=== PATIENT | female | born 1985 | race Caucasian/White ===

== ENCOUNTER 2016-12-18 07:25 | Emergency (ER) | payer MEDICAID ==
--- NOTE | 2016-12-18 08:38 | Emergency Room Report ---
Trauma Alert Presentation Time Seen by MD Velez Initial Onset/Presentation This 31 year old, Female presented to the ED for triage on at by . Accident /injury occurred on at approximately (or date/time was unknown: ). Visit reason: TRAUMA ALERT: TRAUMA SCORE: Intubated? Resp Effort-Rate: GCS: Stystolic B/P: Eye Response: Capillary Refill: Motor Response: GCS: Verbal Response: PEDS GCS: Airway Status: Eye Response: Advanced Airway? Motor Response: Type: Verbal Response: Size: Depth @ teeth-cm: B/P: SaO2: O2 type: Method: LPM: FIO2%: Pulse: Resp: Resps: Lung Snds RT: Temp: Chest Exp: Lung Snds LT: Trachea: Crepitus? C-collar? Long spine board? Cervical immob. dev? GPS NAVIGATION INSTALLER? GPS NAVIGATION INSTALLER? GPS NAVIGATION INSTALLER? Heart Rhythm: Pulses -R Radial: L Radial: Sounds: R Pedal: L Pedal: Cap Refill: R Femoral: R Femoral: Color: R P.Tib: L P.Tib: R Carotid: L Carotid: PUPILS L Reactive? Neuro Status: C/O Pain? mm: Pain Intensity: R Reactive? Scale: mm: See Trauma Alert assessment for responding team members/times related to the Trauma Alert. Source RN notes reviewed, EMS Exam Limitations clinical condition Comment pt involved in [facility] in [place] and [employer] on scene-en route to with head trauma and pt arrested and diverted to our ed- Cardiac Chest Pain Chest pain indicative of cardiac No Timing/Duration this morning Severity severe History Medical History Surgical Hx Previous Surgery? not known Review of Systems All Other Systems Reviewed and Negative Comment not able to be obtained Physical Exam Vital Signs See Trauma Alert Assessment for nursing documentation of initial triage exam General Appearance severe distress Ear, Nose, Throat intubated Neck in c collar Respiratory Status Yes: respiratory distress (apneic). Cardiovascular regular rate/rhythm Peripheral Pulses Pulses normal Yes Peripheral Pulses 2+ femoral (R), 2+ femoral (L) Gastrointestinal soft Extremities pelvis stable, no gross demormity Neurologic no focal changes Glascow Coma Scale Glascow Coma Scale Response Value EYE response: 1 No Response 1 MOTOR response: 1 NO RESPONSE 1 VERBAL response: 1 No Response 1 Total 3 Mental status altered mental status Skin open head wd Medical Decision Making LABS/Meds/Orders Pt receiving controlled substance in ED? No Results/Orders Current Medication Orders Sig/Christy Start time Last Medication Dose Route Stop Time Status Admin Epinephrine HCl 1 MG PRN PRN 12/18 0830 AC 12/18 IV 12/18 1009 0731 Sodium Chloride 10 ML PRN PRN 12/18 0830 AC IV 12/19 0830 Sodium Chloride 1,000 ML .Q1H1M 12/18 0800 AC 12/18 IV 12/18 1000 0730 Orders Procedure Date/time Status CODE BLUE ORDERS/PROC. APPROVE 12/18 829 Active Departure Departure Time of Disposition 0804 Disposition DC/XFER from ER to [facility] Clinical Impression Primary Impression: Traumatic cardiac arrest Condition STABLE ED Critical Care Critical Care Yes Time spent 30-74 min Vital system(s) involved: trauma alert I was present at bedside for Coordinating pt's care, Discussing pt condition, For re-examinations Comments sent [place] [facility] alert at 0837
--- OUTSIDE RECORDS SUMMARY | 2016-12-19 22:05 | External Medical Summary Rpt ---
Author Author , Organization [employer] Address Unknown Phone Unavailable Care Team Providers Care Photography Colorist Name Role Phone [facility] [place] [facility], Unavailable Unavailable [facility] ABRAMS COURTNEY, ABRAMS Unavailable Unavailable GAMALIEL WEAVER, Unavailable Unavailable GAMALIEL JAIN COX VY Unavailable Unavailable MARQUES AGA, Unavailable Unavailable MARQUES AGA ERIK DECALVO Unavailable Unavailable MAR, ERIK DECALVO MAR ERIK DECALVO, Unavailable Unavailable KHUSHBOO V, ERIK DECALVO, KHUSHBOO V JESÚS ELIAN, JESÚS ELIAN Unavailable Unavailable JESÚS ELIAN, JESÚS ELIAN Unavailable Unavailable ARMEN ESPINOSA, JESÚS, Unavailable Unavailable SUSAN CARD, Unavailable Unavailable SUSAN HERNANDEZ ALISA C, Unavailable Unavailable FLORES LIM GANSTER Unavailable Unavailable ANNA MARIE DANIELS, Unavailable Unavailable ANNA MARIE SANCHEZ GIANFERRARI, LORNE, Unavailable Unavailable GIANFERRARI, LORNE VERNON ANT JUNIOR Unavailable Unavailable ANT LITO VELASQUEZ, Unavailable Unavailable LITO VELASQUEZ DEN, GORDeion DEN Unavailable Unavailable [facility], Unavailable Unavailable [facility] GIANA CARRILLO Unavailable Unavailable GIANA MEJÍA Unavailable Unavailable QUINCY DE SOUZA Unavailable Unavailable KELBY PARK, Unavailable Unavailable KELBY MATHEWLAMERT HEN, Unavailable Unavailable HARLAMERT HEN MARK VARGAS, Unavailable Unavailable MARK VARGAS TOMY, SP TOMY Unavailable Unavailable ABDULLAHI ECHAVARRIA Unavailable Unavailable NAKUL FRANKLIN, Unavailable Unavailable NAKUL FERNANDO [facility] Unavailable Unavailable PHARMACY, [facility] HANSEN MIR, HANSEN MIR Unavailable Unavailable [id number], Unavailable Unavailable [id number], [facility] Unavailable Unavailable [facility], [facility] Unavailable Unavailable [facility], [facility] Unavailable Unavailable [facility]INGS, [facility] Unavailable Unavailable [facility], [facility] Unavailable Unavailable [facility], [facility], Unavailable Unavailable [facility] & Unavailable Unavailable [facility] Unavailable Unavailable [facility] Unavailable Unavailable [facility], [facility] DIPAK LOCKETT Y, Unavailable Unavailable DIPAK LOCKETT Y RAI, RON Y, RAI, RON Unavailable Unavailable [facility], [facility] Unavailable Unavailable CENTER, [facility] JERI GREGG, Unavailable Unavailable JERI GREGG [facility] Unavailable Unavailable SERVICES, [facility] Unavailable Unavailable DEPARTMENT, [email or web address], Unavailable Unavailable [email or web address] Unavailable Unavailable PHARMACY, [facility] Unavailable Unavailable [place], [facility], [facility], [facility] Unavailable Unavailable [facility], [facility]available Unavailable [facility], [facility] Unavailable Unavailable ASSOC[facility], [facility] Unavailable Unavailable MEDICAL, [facility] MEDICAL [facility] Unavailable Unavailable [facility]ENTER, [facility] SHANICE PRASAD Unavailable Unavailable THANIA PALMER, Unavailable Unavailable THANIA PALMER MORRIS Unavailable Unavailable MAR MOHAN, MAR Unavailable Unavailable JAM O'JULIETH SARAI, O'JULIETH Unavailable Unavailable SARAI O'JULIETHREFUGIO MOON, O'JULIETH Unavailable Unavailable SARAI [facility] Unavailable Unavailable ENDOCRINOLOGY, I, [facility], I OLZESKI MAURICIO, OLZESKI Unavailable Unavailable SUKHDEV THOMAS, Unavailable Unavailable SUKHDEV PEREZ, Unavailable Unavailable CHACORTA BEJARANO PORNOY MURTAZA, PORNOY Unavailable Unavailable MURTAZA BRENNON NANETTE, BRENNON Unavailable Unavailable NANETTE BRENNON NANETTE, BRENNON Unavailable Unavailable NANETTE [facility] Unavailable [facility], [facility], Unavailable Unavailable [facility], Unavailable Unavailable INC., [facility] FINA JANENE, FINA Unavailable Unavailable JANENE [id number], Unavailable Unavailable [id number] MARY PANG, Unavailable Unavailable MARY PANG [facility] BLANKENSHIP, SHOWER Unavailable Unavailable BLANKNESHIP SHOWER BLANKENSHIP, SHOWER Unavailable Unavailable BLANKENSHIP SHOWER, DIOGO L, Unavailable Unavailable SHOWER, DIOGO L [facility], [facility] YAP KER, YAP KER Unavailable Unavailable SALDANA CHR, Unavailable Unavailable SALDANA CHR MERISSA PONCE, Unavailable Unavailable MERISSA PONCE TUCKER Unavailable Unavailable [facility], Unavailable Unavailable [facility] LATASHA FRANCISCO, LATASHA Unavailable Unavailable NOALN FRANCISCO, LATASHA Unavailable Unavailable NOLAN ELAINE, LATASHA Unavailable Unavailable STANLEY COVARRUBIAS, Unavailable Unavailable STANLEY PAGAN, IAN ANAYA Unavailable Unavailable Purpose Continuity of Care Document - 03-05-2008 through 2016 Problems Code Diagnosis DOS Provider Status E039 HYPOTHYROID 10-22-2016 [facility] U[facility]PEC[facility] CTR I10 ESSENTIAL 10-22-2016 [facility] HYPERTENSIO [facility]ALTH CTR N Z720 TOBACCO USE 10-22-2016 [facility] A5400 GONOCOCCAL 10-14-2016 [facility] LOWER HEALTH GEN[facility] RY TRACT HEALTH UNS N760 ACUTE 10-08-2016 [facility] VAGINITIS [facility] [id number] INSECT BITE 03-18-2016 [facility] RIGHT [facility] FOREARM [facility]ALTH CTR INITIAL ENCOUNTER [id number] INSECT BITE 03-18-2016 [facility] NONVENOMOUS HEALTH CTR LT FOREARM INITIAL ENC [id number] INSECT BITE 03-18-2016 [facility] NONVENOMOUS [facility] CTR RT LOWER LEG INITIAL ENC [id number] INSECT BITE 03-18-2016 [facility] NONVENOMOUS [facility] CTR LT LOWER LEG INITIAL ENC J069 ACUTE UPPER 03-09-2016 [facility] RESPIRATORY [facility] CTR INFECTION UNSPECIFIED E079 DISORDER OF 03-05-2016 [facility] THYROID [facility] UNSPECIFIED HEALTH CTR Z392 ENCOUNTER 08-25-2015 [facility] FOR ROUTINE [facility]ILY HEALTH CTR FOLLOW-UP R5383 OTHER 07-23-2015 [facility] FATIGUE [facility] Z391 ENCNTR FOR 07-23-2015 [facility] CARE & FAMILY EXAMINATION HEALTH CTR LACTATING MOTHER O3421 MATERNAL 07-09-2015 [facility] CARE SCAR [facility]ILY PREVIOUS HEALTH CTR DELIVERY O9902 ANEMIA 07-09-2015 [facility] COMPLICATIN [facility]ILY G HEALTH CTR CHILDBIRTH P49899 ENDOCRINE 07-09-2015 [facility] NUTRITION & FAMILY METAB DZ HEALTH CTR COMP CHILDBIRTH Z302 ENCOUNTER 07-09-2015 [facility] FOR FAMILY STERILIZATI HEALTH CTR ON Z370 SINGLE LIVE 07-09-2015 [facility] Z3A37 37 WEEKS 07-09-2015 [facility] GESTATION [facility] OF HEALTH CTR N838 OTH 07-07-2015 [facility] NONINFLAMM [place] [facility] D/O OVARY FALLOP TUBE & BROAD LIG O0943 SUPERVISION 07-07-2015 [facility] PREG REGIONAL W/GRAND MEDICAL MULTIPARITY THIRD TRI N53400 SUP PREG 07-01-2015 [facility] W/OTH POOR FAMILY REPRODUCTIV HEALTH CTR E/OB HX UNS TRI X60528 SMOKING 07-01-2015 [facility] TOBACCO FAMILY COMP HEALTH CTR THIRD TRIMESTER A22398 ENCOUNTER 07-01-2015 [facility] FOR OTHER REGIONAL PREPROCEDUR MEDICAL AL EXAMINATION Z3009 ENCOUNTER 07-01-2015 [facility] OT GENERAL FAMILY HEALTH CTR 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 Z3A36 36 WEEKS 07-01-2015 [facility] GESTATION [facility]ILY OF HEALTH CTR K22551 SUP PREG 06-26-2015 [facility] W/OTH POOR SERV REPRODUCTIV FOUNDATION E/OB HX THIRD TRI Y71739 UTERINE 06-26-2015 [facility] SIZE-DATE SERV DISCREPANCY FOUNDATION THIRD TRIMESTER Z36 ENCOUNTER 06-26-2015 [facility] FOR REGIONAL MEDICAL SCREENING OF MOTHER Z3A35 35 WEEKS 06-26-2015 [facility] SERV OF FOUNDATION 2449 UNSPECIFIED 05-08-2015 [facility]ILY HYPOTHYROID HEALTH CTR ISM 44275 MATERNAL 05-08-2015 [facility] ANEMIA, FAMILY ANTEPARTUM HEALTH CTR V237 INSUFFICIEN 05-08-2015 [facility] T FAMILY CARE HEALTH CTR V2389 SUPERVISION 05-08-2015 [facility] OF OTHER FAMILY HIGH-RISK HEALTH CTR V2881 ENCOUNTER 04-24-2015 [facility] FOR SERV ANATOMIC FOUNDATION SURVEY V221 SUPERVISION 04-10-2015 [facility] OF OTHER PRIMARY NORMAL CARE CENTER 90652 PREVIOUS 03-27-2015 [facility] C-SECT SERV DELIVERY FOUNDATION ANTPRTM COND/COMP V2341 SUPERVISION 03-27-2015 [facility] W/HISTORY [facility]OUNDATION PRE-TERM LABOR 70771 CERVICAL 03-06-2015 [facility] INCOMPETENC SERV E ANTPRTM FOUNDATION COND/COMPLI CATION 02501 UNS 02-06-2015 [facility] ABNORM MGMT PRIMARY MOTH CARE CENTER ANTPRTM COND/COMP V2889 OTHER 02-06-2015 [facility] SPECIFIED PRIMARY CARE CENTER SCREENING 02842 UNSPECIFIED 01-29-2015 [facility] ANTEPARTUM PRIMARY HEMORRHAGE CARE CENTER ANTEPARTUM 88308 TOB USE D/O 01-29-2015 [facility] COMP PG PRIMARY /PP CARE CENTER ANTEPARTM COND/COMP V7381 SPECIAL 01-16-2015 LABORATORY SCREENING [facility] OF EXAMINATION [facility] H HUMAN PAPILVIRUS V7388 SPECIAL SCR 01-16-2015 [facility] PRIMARY EXAMINATION CARE CENTER OT SPEC CHLAMYDIAL DZ V762 SCREENING 01-16-2015 [facility] FOR PRIMARY MALIGNANT CARE CENTER NEOPLASM OF THE CERVIX V7240 12-13-2014 [facility] EXAMINATION PRIMARY /TEST CARE CENTER UNCONFIRMED 7804 DIZZINESS 08-02-2014 [facility] EMERGENCY GIDDINESS PHYS 7881 DYSURIA 03-16-2014 [facility] N EMERGENCY PHYS 1121 CANDIDIASIS 06-21-2012 LAT[facility] DON OF VULVA AND VAGINA 4019 UNSPECIFIED 06-18-2012 [facility] ESSENTIAL REGIONAL HYPERTENSIO MEDICAL N 82924 UNSPECIFIED 06-18-2012 [facility] PYELONEPHRI SERVICES TIS 5990 URINARY 06-18-2012 [facility] TRACT REGIONAL INFECTION MEDICAL SITE NOT SPECIFIED 15595 UNSPECIFIED 06-18-2012 [facility] VAGINITIS REGIONAL AND MEDICAL VULVOVAGINI TIS 02306 NAUSEA 06-17-2012 [place] [facility] 02239 ABDOMINAL 06-17-2012 [facility] PAIN, REGIONAL UNSPECIFIED MEDICAL SITE 20158 ABDOMINAL 06-17-2012 [place] PA[facility] OTHER RADIOLOGY SPECIFIED ASSOCIAT SITE 4553 EXTERNAL 06-03-2012 [facility] HEMORRHOIDS REGIONAL WITHOUT MEDICAL MENTION COMP V242 ROUTINE 05-04-2012 JESÚS ELIAN FOLLOW-UP V2501 GENERAL 05-04-2012 JESÚSChel PLUMMER COUNSELING PRESCRIPTIO N ORAL CONTRACEPTS 6146 PELVIC 03-28-2012 BRENNON NANETTE PERITONEAL ADHESIONS, FEMALE 16736 OTH CURRENT 03-28-2012 [facility] NANETTE MATERNAL CCE W/DELIVERY 06152 PREV C/S 03-28-2012 [facility] NANETTE DELIV DELIV W/WO MENTION ANTPRTM COND V270 OUTCOME OF 03-28-2012 [facility] NANETTE DELIVERY SINGLE LIVEBORN 13576 MTRN 03-27-2012 [facility] TH[facility]AL DYSF DELIV MEDICAL W/WO ANTPRTM COND 99668 TOBACCO USE 03-27-2012 [facility] D/O COMP [facility] PG MEDICAL CHILDBIRTH/ PP DELIVERED 95619 UNSPECIFIED 03-20-2012 [facility] ABNORMALITY OF LABOR ANTEPARTUM V286 SCREENING 03-09-2012 [facility] [place] [place] [address] DECREASED 03-03-2012 BREN[facility] NANETTE MOVEMENTS UNSPEC EPISODE CARE 05976 UTERINE 03-02-2012 [facility] FRANCISCO SIZE DATE DISCREPANCY ANTPRTM COND/COMPL V232 03-02-2012 LATAS[facility] FRANCISCO WITH HISTORY OF 3671 MYOPIA 12-31-2011 [facility] JIM V284 12-23-2011 JES[facility]SChel PLUMMER SCR GROWTH RETARDATION USING US V2882 ENCOUNTER 12-23-2011 JESÚS PLUMMER SCREENING FOR RISK OF PRE-TERM LABOR V2349 SUPERVISION 12-09-2011 BRENNON NANETTE W/OTH POOR OBSTETRIC HX V2381 SUPERVISION 11-04-2011 O'JULIETHREFUGIO MOON HIGH-RISK PG ELDER PRIMIGRAVID A V239 UNSPECIFIED 09-16-2011 [facility] HIGH-RISK 6823 CELLULITIS 08-16-2011 [facility] OF UPPER MEDICAL ARM AND FOREARM 2411 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 [facility] MULTINODULA R GOITER ENDOCRINOLO GY, I 2448 OTHER 03-30-2011 [facility] SPECIFIED ACQUIRED ENDOCRINOLO HYPOTHYROID GY, I ISM 2452 CHRONIC 03-30-2011 [facility] LYMPHOCYTIC ENDOCRINOL[place] I [address] OTHER 03-30-2011 [facility] MALAISE AND FATIGUE ENDOCRINOLO GY, I 6253 DYSMENORRHE 03-01-2011 [facility] MEDICAL 6262 EXCESSIVE 03-01-2011 [facility] MEDICAL MENSTRUATIO N 77769 THREATENED 02-15-2011 [facility] ANTEPARTUM MEDICAL 632 MISSED 02-08-2011 [facility] MEDICAL 19371 OTHER SPEC 01-27-2011 [facility] HEMORRHAGE PRIMARY EARLY CARE CENTER ANTEPARTUM 73748 UNSPEC 01-26-2011 [facility] EARLY SERVICES ANTEPARTUM V1582 PERS HX 01-26-2011 [facility] TOBACCO USE REGIONAL [facility]ICAL [facility] HEALTH 6268 OTH D/O 12-31-2010 [facility] MENSTRUATIO PRIMARY N&OTH ABN CARE CENTER BLEED FE GNT TRACT V280 SCREENING 12-31-2010 [facility] CHROMOSOMAL PRIMARY ANOMALIES CARE [place]ENTER AMNIOCENTES [place] V7242 12-31-2010 [facility] EXAMINATION PRIMARY OR TEST CARE CENTER POSITIVE RESULT 77693 URINARY 04-21-2010 [facility] FREQUENCY PRIMARY CARE CENTER V2542 SURVEILLANC 04-21-2010 [facility] E PREV PRSC PRIMARY INTRAUTERN CARE CENTER CNTRACPT DEVC 7831 ABNORMAL 01-07-2010 [facility] WEIGHT GAIN PRIMARY CARE CENTERINC 36804 PAIN IN 10-22-2009 [facility] JOINT, PRIMARY SHOULDER CARE REGION CENTERINC 57170 OTHER 07-23-2009 [facility] JOINT OTHER SPEC SITE 7822 LOCALIZED 07-23-2009 [facility] SUPERFICIAL PRIMARY SWELLING CARE MASS OR CENTERINC LUMP V7232 ENCOUNTER 04-23-2009 [facility] PAP CERV PRIMARY SMER CARE CONFIRM NL CENTERINC [place]N 82977 OBESITY, 03-06-2009 [facility] UNSPECIFIED HEALTH CENTRAL BANK ACCT V653 DIETARY 03-06-2009 [facility] SURVEILLANC HEALTH E AND CENTRAL COUNSELING BANK ACCT 2469 UNSPECIFIED 02-26-2009 [facility] DISORDER PRIMARY OF THYROID CARE CENTERINC 2461 DYSHORMONOG 02-25-2009 [facility] EN GOITER ENDOCRINOLO GY, INC V251 ENCOUNTER 07-17-2008 [facility] INSERT/[facility] SERV DENAE IU FOUNDATIO CONTRACEPTI VE DEVICE 48720 BREECH 06-12-2008 [facility] PRESENTAT[facility] SERV N W/O FOUNDATIO MENTION VERSION DELIV 62319 CHROMOSM 06-12-2008 [facility] ABNORM SERV FETUS FOUNDATIO AFFECT MGMT MOTH W/DELIV 64372 PREMATURE 06-12-2008 [facility] RUPTURE SERV MEMBRANES FOUNDATIO DELIVERED 64975 C/S DELIV 06-12-2008 [facility] W/O MENTION SERV INDICAT FOUNDATIO UNS EPIS CARE 89495 DELAY DELIV 06-11-2008 [facility] AFTER SERV SPONT/UNSPE FOUNDATIO C RUP MEMB ANTPRTM 00776 PREMATURE 06-10-2008 [facility] F[facility]ATIO ANTEPARTUM 68563 SPOTTING 06-09-2008 [facility] COMP [facility] F[facility]AT[facility] ANTEPARTUM COND/COMP 51879 ESOPHAGEAL 05-22-2008 [facility] 63643 PREMATURE 05-22-2008 [facility] [place] WITH DELIVERY 88010 OTH CURRENT 05-22-2008 [facility] CLASSIFIABL E ELSW ANTPRTM 36785 DELAY DELIV 05-22-2008 [facility] [place] [place] SPONT/UNSPE C RUP MEMB DELIV 24193 OLIGOHYDRAM 05-20-2008 [facility], SERV ANTEPARTUM FOUNDATIO 11029 THREATENED 04-27-2008 [facility] PREMATURE PRIMARY LABOR CARE ANTEPARTUM CENTERINC 77158 OTHER 04-25-2008 [facility] SPECIFED SERV COMPLICATIO FOUNDATIO N ANTEPARTUM 82088 CNTRL NERV 04-25-2008 [facility] SERV MALFORMATIO FOUNDATIO N IN FETUS ANTEPARTUM 7965 ABNORMAL 04-25-2008 [facility] FINDING ON SERV FOUNDATIO SCREENING 6238 OTHER 03-05-2008 [facility] SPECIFIED REGIONAL NONINFLAMMA MEDICAL TORY CENTER DISORDER VAGINA I46.9 CARDIAC ARREST, CAUSE UNSPECIFIED Medications Na ND Rx Da Fi Fi Am Da Di Ph RX Ph St me C No te ll ll ou ys ag ar # ys at rm s nt no ma ic us Or Da si cy ia de te s n re d BE 43 03 03 30 30 00 RE Ac NA 54 -0 -2 .0 00 YN ti ZE 70 3- 4- 00 00 OL ve AL 33 20 20 78 DS IL 71 17 17 97 0 72 PH HC AR L MA 20 CY MG TA BL ET LE 00 09 24 30 30 00 KR Ac VO 52 -2 -1 .0 00 OG ti TH 71 2- 7- 00 06 ER ve YR 34 20 20 58 OX 71 17 17 80 PH IN 0 15 AR E MA 12 CY 5 MC #4 G 20 TA BL ET ME 29 02 03 14 7 00 RE Ac TR 30 -1 -1 .0 00 YN ti ON 00 7- 0- 00 00 OL ve ID 22 20 20 78 DS AZ 70 17 17 90 OL 1 43 PH E AR 50 MA 0 CY MG TA BL ET AM 00 02 03 30 30 00 RE Ac LO 37 -1 -1 .0 00 YN ti DI 85 7- 0- 00 00 OL ve PI 20 20 20 78 DS NE 87 17 17 90 7 42 PH BE AR SY MA LA CY TE 2. 5 MG TA B LE 00 08 23 30 30 00 KR Ac VO 52 -1 -1 .0 00 OG ti TH 71 6- 7- 00 06 ER ve YR 34 20 20 58 OX 51 17 17 76 PH IN 0 20 AR E MA 10 CY 0 MC #4 G 20 TA BL ET FE 00 06 06 0 90 30 MA 63 GA Ac RR 67 -0 -0 .0 SO 61 NS ti OU 70 8- 8- 00 N 64 TE ve S 07 20 20 FA R CAMPOS 00 11 11 WA KE LF 1 LY LL AT Y E DR 32 UG 5 MG TA BL ET IB 53 06 06 0 60 20 MA 63 GA Ac UP 74 -0 -0 .0 SO 61 NS ti RO 60 8- 8- 00 N 63 TE ve FE 46 20 20 FA R N 60 11 11 WA KE 80 5 LY LL [address] UG TA BL ET DO 60 06 06 0 60 30 MA 63 GA Ac CU 25 -0 -0 .0 SO 61 NS ti SA 80 8- 8- 00 N 62 TE ve TE 95 20 20 FA R 50 11 11 WA KE SO 1 LY LL DI Y UM DR UG 10 0 MG CA PS UL E TR 65 06 06 0 30 5 MA 40 GA Ac AM 16 -0 -0 .0 SO 57 NS ti AD 20 8- 8- 00 N 08 TE ve OL 62 20 20 FA R 71 11 11 WA KE HC 1 LY LL L Y 50 DR UG MG TA BL ET LE 00 12 06 5 30 30 MA 62 HO Ac VO 37 -2 -0 .0 SO 75 LM ti TH 81 2- 2- 00 N 33 ES ve YR 81 20 20 FA OX 30 10 11 WA YA IN 1 LY NC E EY 12 DR R 5 UG MC G TA BL ET NI 00 05 05 0 14 7 MA 63 KE Ac TR 37 -2 -2 .0 SO 53 EF ti OF 83 4- 4- 00 N 21 ve UR 42 20 20 FA KI AN 20 11 11 WA MB TO 1 LY ER IN LY DR MO UG NO -M CR 10 0 MG AL 65 05 05 11 30 30 MA 63 KE Ac EN 16 -1 -1 .0 SO 46 EF ti AT 20 2- 2- 00 N 22 ve AL 66 20 20 FA KI [address] 0 LY ER US LY DR ANGELIA UG BL ET ME 50 08 08 0 14 7 MA 62 RE Ac TR 11 -3 -3 .0 SO 26 DM ti ON 10 N 28 ON ve ID 33 20 20 FA D AZ 40 10 10 WA ME OL 2 LY LI E SS 50 DR Capri 0 UG A MG TA BL ET LE 00 04 08 3 30 30 MA 61 HO Ac VO 52 -2 -1 .0 SO 71 LM ti TH 71 0- 6- 00 N 38 ES ve YR 34 20 20 FA OX 70 10 10 WA YA IN 1 LY NC E EY 12 DR Haney 5 UG MC G TA BL ET BU 00 06 06 0 30 30 MA 61 GI Ac AL 59 -1 -1 .0 SO 94 LL ti OP 13 1- 1- 00 N 90 IS ve IO 54 20 20 FA N 16 10 10 WA AN HC 0 LY NE L E SR DR UG 15 0 MG TA BL ET LE 00 04 05 3 30 30 MA 61 HO Ac VO 52 -2 -2 .0 SO 71 LM ti TH 71 0- 5- 00 N 38 ES ve YR 34 20 20 FA OX 70 10 10 WA YA IN 1 LY NC E EY 12 DR Haney 5 UG MC G TA BL ET 00 05 05 0 30 30 MA 61 GI Ac 09 -1 -1 .0 SO 82 LL ti 34 3- 3- 00 N 13 IS ve 35 20 20 FA 61 10 10 WA AN [address] CARLIE SE 31 04 04 5 15 30 MA 61 GI Ac RT 72 -2 -2 .0 SO 72 LL ti RA 20 3- 3- 00 N 63 IS ve LI 21 20 20 FA NE 30 10 10 WA AN 5 LY NE HC E L DR 50 UG MG TA BL ET LE 00 04 04 3 30 30 MA 61 HO Ac VO 52 -2 -2 .0 SO 71 LM ti TH 71 0- 0- 00 N 38 ES ve YR 34 20 20 FA OX 70 10 10 WA YA IN 1 LY NC E EY 12 R 5 UG MC G TA BL ET 60 04 04 0 8. 2 MA 20 AD Ac 95 -0 -0 00 SO 12 AM ti 10 2- 2- 0 N 52 S ve 79 20 20 FA JA 67 10 10 WA ME [address] SEXTON 00 03 03 0 8. 3 MA 20 AD Ac 40 -2 -2 00 SO 12 AM ti 60 9- 9- 0 N 38 S ve 58 20 20 FA JA 20 10 10 WA ME [address] SEXT[place] CE 00 03 03 0 30 10 MA 61 AD Ac PH 14 -2 -2 .0 SO 58 AM ti AL 39 5- 5- 00 N 56 S ve EX 89 20 20 FA JA IN 70 10 10 WA ME 5 LY S [address] MG UG CA PS UL E 00 03 03 0 10 2 MA 20 AD Ac 40 -2 -2 .0 SO 12 AM ti 60 5- 5- 00 N 18 S ve 58 20 20 FA JA 20 10 10 WA ME [address] UG SE 31 03 03 0 15 30 MA 61 GI Ac RT 72 -0 -0 .0 SO 47 LL ti RA 20 3- 3- 00 N 11 IS ve LI 21 20 20 FA NE 30 10 10 WA AN 5 LY NE HC E L DR 50 UG MG TA BL ET LO 00 03 03 0 10 10 MA 40 GI Ac RA 59 -0 -0 .0 SO 23 LL ti ZE 10 3- 3- 00 N 90 IS ve PA 24 20 20 FA M 11 10 10 WA AN 1 0 LY NE MG E DR TA UG BL ET LE 00 08 03 5 30 30 MA 60 HO Ac VO 37 -1 -0 .0 SO 45 LM ti TH 81 8- 3- 00 N 02 ES ve YR 81 20 20 FA OX 30 09 10 WA YA IN 1 LY NC E EY 12 DR R 5 UG MC G TA BL ET LE 00 08 02 04 30 30 MA 60 HO Ac VO 37 -1 -2 .0 SO 45 LM ti TH 81 8- 6- 00 N 02 ES ve YR 81 20 20 FA OX 30 09 10 WA YA IN 1 LY NC E EY 12 PH R 5 AR MC MA G CY TA BL ET LE 00 08 12 03 30 30 MA 60 HO Ac VO 37 -1 -3 .0 SO 45 LM ti TH 81 8- 1- 00 N 02 ES ve YR 81 20 20 FA OX 30 09 09 WA YA IN 1 LY NC E EY 12 PH R 5 AR MC MA G CY TA BL ET LE 00 08 12 02 30 30 MA 60 HO Ac VO 37 -1 -0 .0 SO 45 LM ti TH 81 8- 3- 00 N 02 ES ve YR 81 20 20 FA OX 30 09 09 WA YA IN 1 LY NC E EY 12 PH R 5 AR MC MA G CY TA BL ET LE 00 08 09 01 30 30 MA 60 HO Ac VO 37 -1 -2 .0 SO 45 LM ti TH 81 8- 4- 00 N 02 ES ve YR 81 20 20 FA OX 30 09 09 WA YA IN 1 LY NC E EY 12 PH R 5 AR MC MA G CY TA BL ET LE 00 08 08 00 30 30 MA 60 HO Ac VO 37 -1 -2 .0 SO 45 LM ti TH 81 8- 7- 00 N 02 ES ve YR 81 20 20 FA OX 30 09 09 WA YA IN 1 LY NC E EY 12 PH R 5 AR MC MA G CY TA BL ET LE 00 05 07 01 30 30 GR 31 JE Ac VO 37 -2 -3 .0 EE 43 SS ti TH 81 9- 0- 00 NW 48 EE ve YR 80 20 20 EL OX 90 09 09 LS RA IN 1 E E PH J 10 AR 0 MA MC CY G TA BL ET LE 00 04 07 00 30 30 MA 60 HO Ac VO 37 -1 -1 .0 SO 07 LM ti TH 81 3- 6- 00 N 00 ES ve YR 80 20 20 FA OX 50 09 09 WA YA IN 1 LY NC E EY 75 PH R AR MC MA G CY TA BL ET LE 00 06 07 00 30 30 GR 31 JE Ac VO 37 -1 -0 .0 EE 43 SS ti TH 81 5- 2- 00 NW 48 EE ve YR 80 20 20 EL OX 90 09 09 LS RA IN 1 E E PH J 10 AR 0 MA MC CY G TA BL ET CI 55 05 05 00 15 30 GR 31 NE Ac TA 11 -0 -2 .0 EE 33 US ti LO 10 5- 1- 00 NW 67 ve AL [address] AM 40 09 09 LS EV 1 EN HB PH E R AR 40 MA CY MG TA BL ET LE 00 05 05 00 30 30 GR 31 HO Ac VO 37 -1 -2 .0 EE 35 LM ti TH 81 3- 1- 00 NW 61 ES ve YR 80 20 20 EL OX 50 09 09 LS YA IN 1 NC E PH EY 75 AR R MA MC CY G TA BL ET 60 05 05 00 8. 8 MA 20 AD Ac 95 -1 -2 00 YS 01 AM ti 10 2- 1- 0 51 S ve 79 20 20 LL 5 JA 67 09 09 E ME 0 OB S /G E YN FA WA LY HE AL TH 60 05 05 00 6. 2 GR 31 AD Ac 95 -1 -2 00 EE 36 AM ti 10 5- 1- 0 NW 57 S ve 79 20 20 EL JA 67 09 09 LS ME 0 S PH E AR MA CY CI 60 04 04 00 15 15 MA 60 NE Ac TA 50 -0 -2 .0 YS 08 US ti LO 52 6- 3- 00 95 ve AL 52 [address] AM 00 09 09 E EV 1 OB EN HB /G E R YN 40 FA MG WA LY TA BL HE ET AL TH 00 04 04 00 10 10 MA 40 NE Ac 78 -0 -2 .0 YS 02 US ti 11 6- 3- 00 18 ve 40 [address] 40 09 09 E EV 1 OB EN /G E YN FA WA LY HE AL TH WA 50 10 12 00 1. 30 KE 12 No Ac RE 41 -2 -0 00 NT 11 t ti NA 90 3- 4- 0 UC 79 Av ve 42 20 20 KY 8 ai SY [address] 1 CL bl EM IN e IC PH AR MA CY 53 10 11 00 60 15 KR 63 No Ac 74 -2 -0 .0 OG 11 t ti 60 3- 7- 00 ER 61 Av ve 13 20 20 4 ai 20 08 08 PH la 5 AR bl M e L- 35 2 DO 00 10 11 00 60 30 KR 63 No Ac CU 53 -2 -0 .0 OG 11 t ti SA 63 3- 7- 00 ER 61 Av ve TE 75 20 20 5 ai 70 08 08 PH la SO 1 AR bl DI M e UM L- 35 25 2 0 MG CA PS UL E OX 00 10 11 00 40 3 KR 22 No Ac YC 40 -2 -0 .0 OG 45 t ti OD 60 3- 7- 00 ER 23 Av ve ON 51 20 20 4 ai E- 20 08 08 PH la AC 5 AR bl ET M e AM L- IN 35 OP 2 HE N 5- 32 5 AL 65 10 11 00 30 30 KR 63 No Ac EN 16 -2 -0 .0 OG 11 t ti AT 20 3- 7- 00 ER 61 Av ve AL 66 20 20 6 ai [address] 0 AR bl US M e L- TA 35 BL 2 ET AM 67 09 09 00 56 7 RI 62 No Ac PI 25 -1 -2 .0 TE 41 t ti CI 30 8- 6- 00 69 Av ve LL 18 20 20 AI ai IN 01 08 08 D la 0 PH bl 25 AR e 0 M MG #3 92 CA 0 PS UL E AZ 59 09 09 00 7. 7 RI 62 No Ac IT 76 -1 -2 00 TE 41 t ti HR 23 8- 6- 0 70 Av ve OM 06 20 20 AI ai YC 00 08 08 D la IN 2 PH bl AR e 25 M 0 #3 MG 92 0 TA BL ET Results Labs Lab Lab Date Result Refere Interp Status Commen Order Detail nces retati t Range on CHLAMYDIA AND GONORRHEA TESTING (10-07-2016 15:00) Chlamyd NEGATIV complet ia 017 E ed trachom 15:00 atis rRNA [Presen ce] in Unspeci fied specime n by Probe & target amplifi cation method Neisser POSITIV complet ia 017 E ed gonorrh 15:00 oeae rRNA [Presen ce] in Unspeci fied specime n by Probe & target amplifi cation method Treponema pallidum IgG Ab [Presence] in Serum by Immunoassay (10-07-2016 15:00) Trepone NON-SHAHZAD complet ma 017 CTIVE ed pallidu 15:00 m IgG Ab [Presen ce] in Serum by Immunoa ssay Treponema pallidum IgG Ab [Presence] in Serum by Immunoassay (10-07-2016 15:00) COLLECT E. complet OR 017 DENY, ed 15:00 R.N. ETHNICI WHITE, complet TY 017 NON-HIS ed 15:00 PANIC PURPOSE DIAGNOS complet OF 017 TIC ed EXAM 15:00 SPECIME BLOOD complet N 017 ed SOURCE 15:00 CHART [id number] complet NUMBER [id number] 09 ed 15:00 Trepone Pending complet ma 017 ed pallidu 15:00 m IgG Ab [Presen ce] in Serum by Immunoa ssay CHLAMYDIA AND GONORRHEA TESTING (10-07-2016 15:00) COLLECT E. complet OR 017 DENY, ed 15:00 R.N. ETHNICI WHITE, complet TY 017 NON-HIS ed 15:00 PANIC KIT complet EXPIRAT 017 017 ed ION 15:00 DATE SYMPTOM NO complet S 017 ed 15:00 REASON VOLUNTE complet FOR 017 ER/MEDI ed REQUEST 15:00 MINGO PROBLEM SPECIME FEMALE complet N 017 ENDOCER ed SOURCE 15:00 VICAL PREGNAN NO complet T 017 ed 15:00 CHART [id number] complet NUMBER [id number] 09 ed 15:00 Chlamyd 10-07- Pending complet ia 017 ed trachom 15:00 atis rRNA [Presen ce] in Unspeci fied specime n by Probe & target amplifi cation method Neisser Pending complet ia 017 ed gonorrh 15:00 oeae rRNA [Presen ce] in Unspeci fied specime n by Probe & target amplifi cation method Procedures Procedure DOS Code Location Performer Comment ECG 72430 JAMES HIGH PRASAD ROUTINE 7 FAMILY ECG HEALTH W/LEAST CTR 12 LDS W/I&[place] [address] [facility] LAB [facility] FREE 7 [facility] [place] [address] [facility] TRIIODOTH 7 [facility] YRONINE HOLDINGS [place] T3 [place] [place] [address] LAB [facility] LAB [facility] THYROID 7 [facility] STIMULATI HOLDINGS HOLDINGS NG HORMONE TSH PRESSURI 38927 JAMES HIGH GORE DEN ED/NONPRE 6 FAMILY SSURIZED [place] [address] LAB [facility] LAB [facility] THYROID 6 [facility] STIMULATI HOLDINGS HOLDINGS NG HORMONE TSH [facility] [address] JAMES [place] HOGGE TOMY DISCHARGE 5 [facility] DAY [facility]ALTH MANAGEMEN CTR T 30 MIN/< SBSQ 34776 JAMES [facility] 5 [facility]/DAY HEALTH 15 CTR MINUTES LAPAROSCO 98817 JAMES HIGH SHOWER PY W/RMVL 5 FAMILY [facility] ADNEXAL HEALTH STRUCTURE CTR S 54063 JAMES SC SHOWER DELIVERY 5 FAMILY [place] [address] [facility] HARLAMERT SURG 5 [place] INC HEN PATHOLOGY GROSS&GERARDO ROSCOPIC EXAM EXTRACTIO [id number] NANCY CRUZ N PRODUCT 5 W W OF [facility] MEDICAL N LOW CERVICAL OP OCCLUSION [id number] NANCY MEAWVIE 5 W W BILATERAL [facility] FALLOPIAN TUBES OPEN CULTURE 44340 NANCY CRUZ BACTERIAL [address] [facility] COLON[facility] COUNT URINE URNLS DIP 64604 NANCY CRUZ 5 W W STICK/TAB REGIONAL REGIONAL LET MEDICAL MEDICAL REAGENT AUTO MICROSCOP Y BLOOD 39823 NANCY CRUZ COUNT 5 W W COMPLETE REGIONAL REGIONAL AUTO&AUTO MEDICAL MEDICAL DIFRNTL WBC POTASSIUM 07470 NANCY CRUZ SERUM 5 W W PLASMA/WH REGIONAL REGIONAL OLE BLOOD MEDICAL MEDICAL COLLECTIO 43827 NANCY CRUZ N VENOUS 5 W W BLOOD REGIONAL REGIONAL VENIPUNCT MEDICAL MEDICAL URE US PREG [address]258 [place] [facility] UTERUS 5 MEDICAL LD AGA AFTER 1ST SERV TRIMEST FOUNDATIO N GESTATION 84591 [place] BIOPHYSIC 5 MEDICAL LD AGA AL SERV PROFILE FOUNDATIO W/O N NON-STRES S TESTING CUL 71725 NANCY CRUZ PRSMPTV 5 W W PTHGN REGIONAL REGIONAL ORGANISM MEDICAL MEDICAL SCRN W/COLONY ESTIMJ IADNA 48904 NANCY CRUZ STREPTOCO 5 W W CCUS REGIONAL REGIONAL GROUP B MEDICAL MEDICAL AMPLIFIED PROBE TQ GLUCOSE 42661 LAB [facility] LAB [facility] POST 5 [facility] GLUCOSE HOLDINGS HOLDINGS DOSE URNLS DIP 96134 JAMES CO JAMES CO 5 FAMILY FAMILY STICK/TAB HEALTH HEALTH LET RGNT CTR CTR NON-AUTO W/[place] [address] LAB [facility] THYROID 5 [facility] STIMULATI [place] [address] LAB [facility] LAB ARM[facility] FREE 5 [facility] [place]RO[place] [address] LAB [facility] LAB ARM[facility]O TRIIODOTH 5 [facility] YRONINE HOLDINGS HOLDINGS T3 FREE BLOOD 28519 JAMES [place] LOMAX VY COUNT 5 FAMILY HEMOGLOBI HEALTH N CTR US PREG 04235 [place] MATHEW UTERUS 5 MEDICAL DOMINIQUE REAL TIME SERV F/U FOUNDATIO TRNSABDL N PER FETUS URNLS DIP 42798 JAMES CO HOGGE TOMY 5 PRIMARY STICK/TAB CARE LET RGNT CENTER NON-AUTO W/O MICRSCP URNLS DIP 47059 JAMES CO OLZESKI 5 PRIMARY MAURICIO STICK/TAB CARE LET RGNT CENTER NON-AUTO W/O MICRSCP URNLS DIP 24029 JAMES CO GUERREROKI 5 PRIMARY MAURICIO STICK/TAB CARE LET RGNT [place] [address] [place] PLAYFORTH 5 MEDICAL CARLEE UTERUS SERV LIMITED FOUNDATIO 1/> [place] [address] LAB [facility] LAB ARM[facility] THYROID 5 [facility] STIMULATI HOLDINGS HOLDINGS NG HORMONE TSH COLLECTIO 22226 JAMES ABARCA N VENOUS 5 PRIMARY MAURICIO BLOOD CARE VENIPUNCT CENTER URE US PREG 36112 JAMES HIGH SURJIT UTERUS 5 PRIMARY JOSE W/DETAIL CARE CENTER EMILIA 1ST GESTATION URNLS DIP 73566 JAMES PICHARDOCKER 5 PRIMARY JOSE STICK/TAB CARE LET RGNT CENTER NON-AUTO W/O MICRSCP US PREG 66031 [place] [facility] UTERUS 5 MEDICAL LD AGA REAL TIME SERV W/IMAGE FOUNDATIO DCMTN N TRANSVAG [place] PREG 07330 [place] UTERUS 5 MEDICAL LD AGA AFTER 1ST SERV TRIMEST FOUNDATIO 1/1ST N GESTATION URNLS DIP 10046 JAMES HIGH HOGGE TOMY 5 PRIMARY STICK/TAB CARE LET RGNT CENTER NON-AUTO W/O MICRSCP URNLS DIP 45302 JAMES CO HOGGE TOMY 5 PRIMARY STICK/TAB CARE LET RGNT CENTER NON-AUTO W/O MICRSCP ALPHA-FET 86794 LAB COR LAB COR OPROTEIN 5 [employer] SERUM HOLDING HOLDING COLLECTIO 45796 JAMES SNOWDEN TOMY N VENOUS 5 PRIMARY BLOOD CARE VENIPUNCT CENTER URE US PREG 47789 JAMES CO HOGGE TOMY UTERUS 5 PRIMARY REAL TIME CARE F/U CENTER TRNSABDL PER FETUS US PREG 63358 JAMES HIGH LOMAX VY UTERUS 5 PRIMARY REAL TIME CARE F/U CENTER TRNSABDL PER FETUS TOBACCO 04757 JAMES HIGH LOMAX VY USE 5 PRIMARY CESSATION CARE CENTER INTERMEDI ATE 3-10 MINUTES IADNA 49610 LAB [facility] LAB ARMANDO CHLAMYDIA 5 [employer] HOLDINGS HOLDINGS TRACHOMAT IS AMPLIFIED PROBE TQ URNLS DIP 33410 JAMES CO LOMAX VY 5 PRIMARY STICK/TAB CARE LET RGNT CENTER NON-AUTO W/O MICRSCP IADNA 45946 LAB [facility] LAB ARM[facility] KIKI 5 [facility] SPECIES HOLDINGS HOLDINGS AMPLIFIED PROBE TQ IADNA 12486 LAB [facility] LAB [facility] NEISSERIA 5 [facility] HOLDINGS HOLDINGS GONORRHOE AE AMPLIFIED PROBE TQ IADNA NOS 80115 LAB [facility] LAB ARMANDO 5 [facility] AMPLIFIED HOLDINGS HOLDINGS PROBE TQ EACH ORGANISM IADNA 22715 LAB [facility] LAB [facility] TRICHOMON 5 [facility] HOLDINGS HOLDINGS VAGINALIS AMPLIFIED PROBE TECH 64590 [facility] 5 Y Y ED PLASMA [facility] PROTEIN-A GONADOTRO 80957 [facility] 5 Y Y CHORIONIC [facility] [place] [address] [place] O'JULIETH NUCHAL 5 MEDICAL SARAI TRANSLUCE SERV NCY 1ST FOUNDATIO GESTATION N IADNA 70253 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 NEISSERIA 5 Y ARMANDO OF Y ARMANDO OF [facility] GONORRHOE H H AE AMPLIFIED PROBE TQ URNLS DIP 32316 JAMES CO GANSTER 5 PRIMARY GLORIA STICK/TAB CARE LET RGNT CENTER NON-AUTO W/O MICRSCP CYTP 24669 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 CERVICAL/ 5 Y ARMANDO OF Y ARMANDO OF VAGINAL [facility] REQ H H INTERP PHYSICIAN CYTP C/V 74652 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 AUTO THIN 5 Y ARMANDO OF Y ARMANDO OF LYR [facility] PREPJ SCR H H MNL RESCR PHYS IADNA 41200 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 CHLAMYDIA 5 Y ARMANDO OF Y ARMANDO OF [facility] TRACHOMAT H H IS AMPLIFIED PROBE TQ IADNA 05794 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 HUMAN 5 Y ARMANDO OF Y ARMANDO OF [place] [facility] VIRUS H H HIGH-RISK TYPES CREATININ 34450 LAB [facility] LAB ARMANDO E OTHER 5 [facility] [place] LAB [facility] LAB [facility] BENZODIAZ 5 [facility] EPINES [place] G[address] LAB [facility] LAB [facility] METHADONE 5 [facility]INGS HOLDINGS DRUG SCR G0434 LAB [facility] LAB [facility] NOT 5 [facility] CHROMATOG HOLDINGS HOLDINGS RAPHIC; ANY NUMBER PT ENC OPIATE G6056 LAB [facility] LAB [facility] DRUG AND 5 [facility] METABOLIT HOLDINGS HOLDINGS [place] G[address] LAB [facility] LAB [facility] ALCOHOL; 5 [facility] ANY HOLDINGS HOLDINGS [place]IMEN EX[place] G[address] LAB [facility] LAB [facility] AMPHETAMI 5 [facility] NE OR HOLDINGS [place] G[address] LAB [facility] LAB [facility] COCAINE 5 [facility] OR HOLDINGS HOLDINGS METABOLIT E URINE 22232 JAMES CO LOMAX VY 5 PRIMARY TEST CARE VISUAL CENTER COLOR CMPRSN METHS SMR PRIM 63013 MEADOWVIE MEADOWVIE SRC 2 W W GRAM/GIEM REGIONAL REGIONAL SA STAIN MEDICAL MEDICAL BCT FUNGI/KAVITHA L CUL BACT 06059 MEADOWVIE MEADOWVIE XCPT [address] [facility] BLOOD/STO MEDICAL MEDICAL OL AEROBIC ISOL IADNA 94433 MEADOWVIE MEADOWVIE CHLAMYDIA [address] [facility] TRACHOMAT MEDICAL MEDICAL IS AMPLIFIED PROBE TQ SMR PRIM 82492 MEADOWVIE MEADOWVIE SRC WET [address] [facility] NFCT AGT MEDICAL MEDICAL URINE 62409 MEADOWVIE MEADOWVIE 2 W W TEST [facility] VISUAL MEDICAL MEDICAL COLOR CMPRSN METHS URNLS DIP 53016 MEADOWVIE MEADOWVIE 2 W W STICK/TAB REGIONAL REGIONAL LET MEDICAL MEDICAL REAGENT AUTO MICROSCOP Y CULTURE 59858 MEADOWVIE MEADOWVIE BACTERIAL [address] [facility] QUANTTATI MEDICAL MEDICAL VE COLONY COUNT URINE COMPREHEN 87342 MEADOWVIE MEADOWVIE SIVE 2 W W METABOLIC REGIONAL REGIONAL PANEL MEDICAL MEDICAL URNLS DIP 02830 MEADOWVIE MEADOWVIE 2 W W STICK/TAB REGIONAL REGIONAL LET MEDICAL MEDICAL REAGENT AUTO MICROSCOP Y RADEX ABD 15138 MEADOWVIE MEADOWVIE COMPL 2 W W AQT ABD REGIONAL REGIONAL W/S/E/D MEDICAL MEDICAL VIEWS 1 VIEW CH INJECTION J1885 MEADOWVIE MEADOWVIE 2 W W KETOROLAC [facility] TROMETHAM INE PER 15 MG URINE 01018 MEADOWVIE MEADOWVIE [address] [facility] VISUAL [facility] [place] [address] MEADOWVIE MEADOWVIE LIPASE 2 W W [facility] [place] [address] MEADOWVIE MEADOWVIE AMYLASE 2 W [place] [facility] [place] [address] MEADOWVIE MEADOWVIE INFUSION 2 W W HYDRATION [facility] MEDICAL MEDICAL ADDITIONA L HOUR COLLECTIO 14709 MEADOWVIE MEADOWVIE N VENOUS [address] [facility] VENIPUNCT MEDICAL MEDICAL URE THER 13387 MEAWVIE MEADOWVIE PROPH/DX 2 W W NJX IV [facility] MEDICAL MEDICAL SINGLE/1S T SBST/DRUG INJECTION J2405 MEADOWVIE MEADOWVIE [address] [facility] ON HCL MEDICAL MEDICAL PER [address] [facility] MILEAGE 2 ANAT CO ANAT CO PER STATUTE AMBULANCE AMBULANCE MILE AMBULANCE A0429 [facility] SERVICE 2 ANAT CO ANAT CO BLS EMERGENCY AMBULANCE AMBULANCE TRANSPORT BLOOD 87697 MEADOWVIE MEADOWVIE COUNT [address] [facility] AUTO&AUTO MEDICAL MEDICAL DIFRNTL WBC THERAPEUT 65309 MEADOWVIE MEADOWVIE IC [address] [facility] IV PUSH MEDICAL MEDICAL EACH NEW DRUG SBSQ 41656 [facility] 2 NANETTE NANETTE CARE/DAY 15 MINUTES LOW 741 MEADOWVIE MEADOWVIE CERVICAL [address] [facility] SECTION MEDICAL MEDICAL OTHER 5459 MEADOWVIE MEADOWVIE LYSIS OF [address] [facility] L MEDICAL MEDICAL ADHESIONS ANESTHESI 20762 VERNON JUNIOR A 2 ANT ANT DELIVERY ONLY 27453 JESÚS ELIAN JESÚS ELIAN DELIVERY 2 ONLY 14110 MEADOWVIE MEADOWVIE LUNG 2 W W MATURITY [facility] LAMELLAR MEDICAL MEDICAL BODY DENSITY 81022 MEAWSATISH MEADOWVIE NONSTRESS [address] [facility] MEDICAL MEDICAL COLLECTIO 34076 MEAWSATISH SHUKLAWVIE N VENOUS [address] [facility] [place] [address] NANCY SHUKLAWVIE GUIDANCE 2 W W AMNIOCENT [facility] REGIONAL ESIS IMG MEDICAL MEDICAL S&I AMNIOCENT 36078 SHOWER SHOWER ESIS 2 [facility] DIAGNOSIC BLOOD 02354 VAZQUEZWSATISH MEAWVIE COUNT [address] [facility] AUTO&AUTO MEDICAL MEDICAL DIFRNTL WBC POTASSIUM 89157 VAZQUEZWSATISH SHUKLAWSATISH SERUM 2 W W PLASMA/WH [facility] OLE BLOOD MEDICAL MEDICAL URNLS DIP 01191 SHOWER SHOWER 2 [facility] STICK/TAB LET RGNT NON-AUTO W/O MICRSCP CUL 26867 NANCY CRUZ PRSMPTV 2 W W [facility] ORGANISM MEDICAL MEDICAL SCRN W/COLONY ESTIMJ URNLS DIP 70037 BRENNON BRENNNO 2 NANETTE NANETTE STICK/TAB LET RGNT NON-AUTO W/O MICRSCP 56953 BRENNON BRENNON NONSTRESS 2 NANETTE [place]ANETTE TEST [place] PREG 24317 LATASHA PAGAN UTERUS 2 DON DON REAL TIME F/U TRNSABDL PER FETUS URNLS DIP 48260 LATASHA PAGAN 2 DON DON STICK/TAB LET RGNT NON-AUTO W/O MICRSCP URNLS DIP 60345 LATASHA PAGAN 2 DON DON STICK/TAB LET RGNT NON-AUTO W/O MICRSCP URNLS DIP 24159 BRENNON BRENNON 2 NANETTE NANETTE STICK/TAB LET RGNT NON-AUTO W/O MICRSCP BLOOD 77851 BRENNON BRENNON COUNT 2 NANETTE NANETTE HEMOGLOBI N COLLECTIO 95142 SHOWER SHOWER N VENOUS 2 [facility] BLOOD VENIPUNCT URE URNLS DIP 88329 SHOWER SHOWER 2 [facility] STICK/TAB LET RGNT NON-AUTO W/O MICRSCP GLUCOSE 90680 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 TOLERANCE 2 Y & Y & TEST GTT BIODIAGNO BIODIAGNO 3 STICS STICS SPECIMENS URNLS DIP 06114 JESÚS ELIAN JESÚS ELIAN 2 STICK/TAB LET RGNT NON-AUTO W/O MICRSCP COLLECTIO 58254 JESÚS ELIAN JESÚS ELIAN N VENOUS 2 [place] [address] 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 THYROID 2 Y & Y & STIMULATI BIODIAGNO BIODIAGNO NG STICS STICS HORMONE TSH DETERMINA 20855 [facility]NA ARREDONDOON 2 JIM JIM REFRACTIV E STATE OPHTH 23465 [place] FARIA MEDICAL 2 [facility] XM&EVAL COMPRE NEW PT 1/> VST US PREG 88684 JESÚS ELIAN JESÚS ELIAN UTERUS 2 REAL TIME W/IMAGE DCMTN TRANSVAG COLLECTIO 13711 JESÚS ELIAN JESÚS ELIAN N VENOUS 2 BLOOD VENIPUNCT URE US PREG 06487 JESÚS ELIAN JESÚS ELIAN UTERUS 2 REAL TIME F/[place] [address] 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 THYROID 2 Y & Y & STIMULATI BIODIAGNO BIODIAGNO NG STICS STICS HORMONE TSH URNLS DIP 13490 JESÚS ELIAN JESÚS ELIAN 2 STICK/TAB LET RGNT NON-AUTO W/O MICRSCP URNLS DIP 40001 BRENNON BRENNON 2 NANETTE NANETTE STICK/TAB LET RGNT NON-AUTO W/O MICRSCP US PREG 47050 [facility] UTERUS 2 CARLEE CARLEE REAL TIME F/U TRNSABDL [facility] G0378 NANCY CRUZ OBSERVATI 2 W W ON [facility] MEDICAL PER HOUR US PREG 93935 [facility] UTERUS 2 CARLEE CARLEE REAL TIME F/U TRNSABDL PER FETUS URNLS DIP 06139 JESÚS ELIAN JESÚS ELIAN 2 STICK/TAB LET RGNT NON-AUTO W/O MICRSCP US PREG 30133 O'JULIETH O'JULIETH UTERUS 2 SARAI SARAI W/DETAIL EMILIA 1ST GESTATION URNLS DIP 45793 LATASHA LATASHA 2 DON DON STICK/TAB LET RGNT NON-AUTO W/O MICRSCP IADNA 74525 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 CHLAMYDIA 2 Y & Y & BIODIAGNO BIODIAGNO TRACHOMAT STICS STICS IS AMPLIFIED PROBE TQ CYTP C/V 60005 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 AUTO THIN 2 Y & Y & LYR BIODIAGNO BIODIAGNO PREPJ SCR STICS STICS MNL RESCR PHYS URNLS DIP 27064 SHOWER SHOWER 2 [facility] STICK/TAB LET RGNT NON-AUTO W/O MICRSCP IADNA 88717 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 NEISSERIA 2 Y & Y & BIODIAGNO BIODIAGNO GONORRHOE STICS ST[place] [address] 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 THYROXINE 2 Y & Y & TOTAL BIODIAGNO [place] [address] 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 THYROID 2 Y & Y & STIMULATI BIODIAGNO BIODIAGNO NG STICS STICS HORMONE TSH COLLECTIO 27433 SHOWER SHOWER N VENOUS 2 [facility]SH[facility] BLOOD VENIPUNCT URE US PREG 53941 SHOWER SHOWER UTERUS 1 [facility] REAL TIME W/IMAGE DCMTN TRANSVAG COLLECTIO 21151 SHOWER SHOWER N VENOUS 1 [facility] BLOOD VENIPUNCT URE MOLEC 39786 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 ISOL/XTRJ 1 Y & Y & HP BIODIAGNO BIODIAGNO NUCLEIC STICS STICS ACID EA TYPE MOLECULAR 85543 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 DX AMP 1 Y & Y & TARGET BIODIAGNO BIODIAGNO MULTIPLEX STICS STICS EA ADDL SEQ MOLEC 90749 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 SEP&ID HI 1 Y & Y & RESOLU BIODIAGNO BIODIAGNO TQ EACH STICS STICS NUCLEIC ACID PREP MOLECULAR 19096 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 DX AMP 1 Y & Y & TARGET BIODIAGNO BIODIAGNO MULTIPLEX STICS STICS 1ST 2 SEQ MOLECULAR 13635 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 1 Y & Y & DIAGNOSTI BIODIAGNO BIODIAGNO CS STICS STICS INTERPRET ATION & REPORT MUTATION 91157 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 ID 1 Y & Y & ENZYMATIC BIODIAGNO BIODIAGNO STICS STICS LIG/PRIME R XTN 1 SGM EA URNLS DIP 16568 SHOWER SHOWER 1 [facility] STICK/TAB LET RGNT NON-AUTO W/O MICRSCP CUL BACT 78306 MEADOWVIE MEADOWVIE XCPT [address] [facility] BLOOD/STO MEDICAL MEDICAL OL AEROBIC ISOL CUL BACT 36544 MEADOWVIE MEADOWVIE AEROBIC [address] [facility] METHS MEDICAL MEDICAL DEFINITIV E EA ISOL SMR PRIM 92581 MEADOWVIE MEADOWVIE SRC 1 W W GRAM/GIEM [facility] SA STAIN MEDICAL MEDICAL BCT FUNGI/KAVITHA L SUSCEPTIB 38344 MEADOWVIE MEADOWVIE LTY STDY 1 W W ANTIMICRB [facility] IAL MEDICAL MEDICAL MICRO/AGA R DILUTJ SUSCEPTIB 10038 MEADOWVIE MEADOWVIE ILITY [address] [facility] ANTIMICRO MEDICAL MEDICAL BIAL DISK METHOD THERAPEUT 65298 MEADOWVIE MEADOWVIE IC [address] [facility] TIC/DX MEDICAL MEDICAL INJECTION SUBQ/IM INCISION 48230 MEADOWVIE MEADOWVIE & [address] [facility] ABSCESS MEDICAL MEDICAL SIMPLE/SI NGLE INCISION 59235 WAGNER PAGAN & 1 EMERGENCY [place] [facility] ABSCESS COMPLICAT [place] [address] MEADOWVIE MEADOWVIE TRIIODOTH 1 W W YRONINE REGIONAL REGIONAL T3 FREE MEDICAL MEDICAL BLOOD 61111 MEADOWVIE MEADOWVIE COUNT [address] [facility] AUTO&AUTO [place] [address] MEADOWVIE MEADOWVIE THYROID [address] [facility] [place] [address] MEADOWVIE MEADOWVIE FREE 1 W W THYROXINE REGIONAL REGIONAL MEDICAL MEDICAL COLLECTIO 56668 MEADOWVIE MEADOWVIE N VENOUS [address] [facility] VENIPUNCT [facility] MEDICAL URE IRON 54993 MEADOWVIE MEADOWVIE BINDING 1 W W CAPACITY [facility] MEDICAL US SOFT 32761 [place] FERNANDO TISSUE 1 [facility] ENDOCR[facility] NECK [place], [place] [address] MEADOWVIE MEADOWVIE IRON 1 W [place] [facility] [address] MEADOWVIE MEADOWVIE FERRITIN 1 W W [facility] URINE 59315 MEADOWVIE MEADOWVIE 1 W W TEST [facility] MEDICAL COLOR CMPRSN METHS COLLECTIO 02447 MEADOWVIE MEADOWVIE N VENOUS 1 W W BLOOD [facility] MEDICAL URE GONADOTRO 83432 MEADOWVIE MEADOWVIE PIN 1 W W [facility] MEDICAL QUANTITAT BRYAN GONADOTRO 16542 MEADOWVIE MEADOWVIE PIN 1 W W [facility] MEDICAL QUANTITAT BYRAN COLLECTIO 90218 MEADOWVIE MEADOWVIE N VENOUS 1 W W BLOOD [facility] MEDICAL MEDICAL URE COLLECTIO 36289 MEADOWVIE MEADOWVIE N VENOUS 1 W W BLOOD [facility] MEDICAL URE GONADOTRO 91215 MEADOWVIE MEADOWVIE PIN 1 W W [facility] MEDICAL QUANTITAT BRYAN GONADOTRO 99425 MEADOWVIE MEADOWVIE PIN 1 W W [facility] MEDICAL QUANTITAT BRYAN COLLECTIO 68647 MEADOWVIE MEADOWVIE N VENOUS [address] [facility] URE COLLECTIO 57155 JAMES CO GANSTER N VENOUS 1 PRIMARY [facility] BLOOD CARE VENIPUNCT CENTER URE US PREG 00457 JAMES CO GANSTER UTERUS 1 PRIMARY [place] REAL TIME CARE W/IMAGE CENTER DCMTN TRANSVAG URNLS DIP 36790 JAMES CO GANSTER 1 PRIMARY [place] STICK/TAB CARE LET RGNT CENTER NON-AUTO W/O MICRSCP BLOOD 55435 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 COUNT 1 Y & Y & COMPLETE BIODIAGNO BIODIAGNO AUTO&AUTO STICS STICS DIFRNTL WBC BLOOD 86226 NANCY MEADOWVIE TYPING [address] [facility] RH (D) [facility] MEDICAL BLOOD 89272 MEADOWVIE MEADOWVIE TYPING [address] [facility] ABO [facility] MEDICAL IADNA 88270 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 NEISSERIA 1 Y & Y & BIODIAGNO BIODIAGNO GONORRHOE STICS STICS AE AMPLIFIED PROBE TQ URNLS DIP 51617 JAMES CO YOUNG HÉCTOR 1 PRIMARY STICK/TAB CARE LET RGNT CENTER NON-AUTO W/O MICRSCP IADNA 17425 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 CHLAMYDIA 1 Y & Y & BIODIAGNO BIODIAGNO TRACHOMAT STICS STICS IS AMPLIFIED PROBE TQ CYTP C/V 46403 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 AUTO THIN 1 Y & Y & LYR BIODIAGNO BIODIAGNO PREPJ SCR STICS STICS MNL RESCR PHYS COLLECTIO 17547 MEADOWSATISH MEADOWVIE N VENOUS [address] [facility] VENIPUNCT [facility] MEDICAL URE GONADOTRO 88683 MEADOWVIE MEADOWVIE PIN 1 W W CHORIONIC [facility] QUANTITAT BRYAN BLOOD 97189 MEADOWVIE MEADOWVIE COUNT [address] [facility] AUTO&AUTO MEDICAL MEDICAL DIFRNTL WBC US PREG 00528 JAMES CO SHOWER UTERUS 1 PRIMARY [facility] REAL TIME CARE W/IMAGE CENTER DCMTN TRANSVAG URNLS DIP 71839 [facility] SHOWER 1 PRIMARY BLANKENSHIP STICK/TAB CARE LET RGNT CENTER NON-AUTO W/O MICRSCP URNLS DIP 65980 [facility] JESÚS ELIAN 1 PRIMARY STICK/TAB CARE LET RGNT CENTER NON-AUTO W/O MICRSCP URINE 08874 [facility] SHOWER 1 PRIMARY BLANKENSHIP TEST CARE VISUAL CENTER COLOR CMPRSN METHS COLLECTIO 40230 [facility] N VENOUS 1 PRIMARY PRIMARY BLOOD CARE [place] [address] JAMES HARDEN TRANSVAGI 0 PRIMARY JANENE NAL CARE CENTER CULTURE 63490 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 BACTERIAL 0 Y & Y & BIODIAGNO BIODIAGNO QUANTTATI STICMayo STICS VE COLONY COUNT URINE URNLS DIP 05257 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 0 Y & Y & STICK/TAB BIODIAGNO BIODIAGNO LET RGNT STICS STICS AUTO W/[place] [address] MEADOWVIE MEADOWVIE IRON [address] [facility] [address] MEADOWVIE MEADOWVIE FOLIC [address] [facility] 25 41910 MEADOWVIE MEADOWVIE HYDROXY 0 W W INCLUDES [facility] IF PERFORMED CYANOCOBA 08255 MEADOWVIE MEADOWVIE KOSTA [address] [facility] B-[place] [address] MEADOWVIE MEADOWVIE FERRITIN [address] [facility] MEDICAL MEDICAL IRON 82103 MEADOWVIE MEADOWVIE BINDING 0 W W [facility]ITY [facility] MEDICAL DEHYDROEP 75130 MEADOWVIE MEADOWVIE IANDROSTE 0 W W [facility] MEDICAL BLOOD 16067 MEADOWVIE MEADOWVIE COUNT [address] [facility] AUTO&AUTO MEDICAL MEDICAL DIFRNTL WBC COLLECTIO 92095 MEADOWVIE MEADOWVIE N VENOUS [address] [facility] V[facility]IP[facility]CT [facility] [place] [address] MEADOWVIE MEADOWVIE TRIIODOTH [address] [facility] [place] [address] MEADOWVIE MEADOWVIE FREE 0 W W THYROXINE [facility] [place] [place] [address] MEADOWVIE MEADOWVIE THYROID 0 W W [facility]I [facility] [place] [address] MEADOWVIE MEADOWVIE THYROID 0 W [facility] [place] [address] MEADOWVIE MEADOWVIE FREE 0 W W THYROXINE [facility] [place] [address] NANCY CRUZ TRIIODOTH [address] [facility] COLLECTIO 06133 NANCY CRUZ N VENOUS [address] [facility] VENIPUNCT [facility] URE [facility] [place] [address] [facility] EXTREMITY 9 NON-VASC DIAGNOSTI DIAGNOSTI C CENTER, C CENTER, REAL[facility] IMG IADNA 86229 [facility] [place] 9 [facility] GONORRHOE AE AMPLIFIED PROBE TQ IADNA 92108 [facility] [place] 9 [facility] TRACHOMAT IS AMPLIFIED PROBE TQ CYTP 30150 [facility] CERV/VAG 9 [facility] AUTO THIN LAYER PREP MNL SCREEN MEDICAL 40652 DHS/CO ANAT CO NUTRITION 9 [facility] ASSMT&IVN BANK ACCT T TJ INDIV EACH 15 [place] COLLECTIO 68856 DENYS FERNANDO N VENOUS 9 ANGELA MOTA R BLOOD ENDOCRINO [place], [place] [address] LAB [facility] TRIIODOTH 9 [employer] [place] [address] [facility] FREE 9 [employer] [place] [address] [facility] THYROID 9 [employer] STIMULATI [employer] [place] [address] [facility] SOMATOMED 9 [employer] [place] [address] [facility] THYROID 9 [employer] [place] [address] LAB [facility] LAB ARMANDO FREE 9 AMERIC AMERIC THYROXINE HOLDING HOLDING COLLECTIO 47101 DENYS FERNANDO N VENOUS 9 ANGELA Haney BLOOD ENDOCRINO VENIPUNCT LOGY, INC URE US SOFT 66611 DENYS FERNANDO TISSUE 9 ANGELA Haney HEAD & ENDOCRINO NECK REAL LOGY, INC TIME IMGE DOCM INSERTION 83157 GILMER PALMER, 8 MEDICAL THANIA C INTRAUTER SERV INE FOUNDATIO DEVICE IUD ANESTHESI 78446 [place] COLCLOUGH A 8 MEDICAL , GAMALIEL SERV [place] [address] [place] RON ATWOOD SURG 8 MEDICAL Y PATHOLOGY SERV FOUNDATIO GROSS&GERARDO ROSCOPIC EXAM CLASSICAL 740 [facility] 8 Y Y [facility] [address] [place] GARABEDIA DELIVERY 8 MEDICAL N, ONLY SERV ANNA MARIE W/POSTPAR FOUNDATIO [place]ARE [place] PREG [address]65 [place] MATHEW, UTERUS 8 MEDICAL KELBY F REAL TIME SERV F/U FOUNDATIO TRNSABDL PER FETUS 10-20-200 11157 [place] CARINA, NONSTRESS 8 MEDICAL FLORES C TEST SERV FOUNDATIO SBSQ 10-20-200 [address] [place] [address] MEDICAL KELBY F CARE/DAY SERV 35 FOUNDATIO MINUTES SBSQ 10-19-[id number] [place] [address] MEDICAL DIPAK CARE/DAY SERV Y 35 FOUNDATIO MINUTES 10-19-200 97795 [place] MARYSOL, NONSTRESS 8 MEDICAL JERI B TEST SERV FOUNDATIO SBSQ [phone] [place] [address] MEDICAL DIPAK CARE/DAY SERV Y 35 FOUNDATIO MINUTES SBSQ [id number] [place] [address] MEDICAL DIPAK CARE/DAY SERV Y 35 FOUNDATIO MINUTES SBSQ [phone] [place] [address] MEDICAL DIPAK CARE/DAY SERV Y 35 FOUNDATIO MINUTES SBSQ [phone] [place] [address] MEDICAL DIPAK CARE/DAY SERV Y 35 FOUNDATIO MINUTES SBSQ [phone] [place] [address] MEDICAL DIPAK CARE/DAY SERV Y 35 FOUNDATIO MINUTES 10-14-200 52153 [place] GARABEDIA NONSTRESS 8 MEDICAL N, TEST SERV ANNA MARIE FOUNDATIO SBSQ 10-13-[id number] [place] [address] MEDICAL DIPAK CARE/DAY SERV Y 35 FOUNDATIO MINUTES 10-13-200 73383 [place] GARABEDIA NONSTRESS 8 MEDICAL N, TEST SERV ANNA MARIE FOUNDATIO 10-12-200 57015 [place] MATHEW, NONSTRESS 8 MEDICAL KELBY F TEST SERV FOUNDATIO SBSQ 10-12-200 20858 [facility] 8 MEDICAL KELBY F CARE/DAY SERV 35 FOUNDATIO MINUTES SBSQ 10200 [address] [place] [address] MEDICAL KELBY F CARE/DAY SERV 35 FOUNDATIO MINUTES SBSQ 10200 [address] [place] [address] MEDICAL RI, LORNE CARE/DAY SERV 35 FOUNDATIO MINUTES 200 22030 [place] PONCE, NONSTRESS 8 MEDICAL MERISSA M TEST SERV FOUNDATIO SBSQ 200 46790 [facility] 8 MEDICAL RI, LORNE CARE/DAY SERV 35 FOUNDATIO MINUTES SBSQ 200 97789 [facility] 8 MEDICAL RI, [place]ORNE CARE/DAY SERV 35 FOUNDATIO MINUTES 50091 [place] PANG, NONSTRESS 8 MEDICAL MARY J TEST SERV FOUNDATIO SBSQ 200 21125 [facility] 8 MEDICAL RI, [place]NE CARE/DAY SERV 35 FOUNDATIO MINUTES SBSQ 10200 01890 [facility] 8 MEDICAL RI, LORNE CARE/DAY SERV 35 FOUNDATIO MINUTES SBSQ 10-200 75511 [facility] 8 MEDICAL SUSAN E CARE/DAY SERV 35 FOUNDATIO MINUTES SBSQ 10-200 57063 [facility] 8 MEDICAL KELBY F CARE/DAY SERV 35 FOUNDATIO MINUTES 200 00160 [facility], NONSTRESS 8 MEDICAL MERISSA M TEST SERV FOUNDATIO SBSQ 200 [address]1855 [place] [address] MEDICAL KELBY F CARE/DAY SERV 35 FOUNDATIO MINUTES 29944 [facility] MONITORIN 8 Y Y G LABOR [facility] PHYS WRITTEN REPORT URNLS DIP 75212 [facility] 8 Y Y STICK/TAB [facility] LET RG[place] AUTO W/[place] [address] [facility] 8 Y Y UTERUS [facility] LIMITED 1/> [place] [address] GILMER MATHEW, 8 MEDICAL KELBY F UTERUS SERV LIMITED FOUNDATIO 1/> FETUSES URNLS DIP 95703 JAMES PEREZ, 8 PRIMARY SUKHDEV J STICK/TAB CARE LET RGNT CENTERINC NON-AUTO W/O MICRSCP URNLS DIP 70732 JAMES HIGH SHOWER, 8 PRIMARY DIOGO Atkins STICK/TAB CARE LET RGNT CENTERINC NON-AUTO W/[place] MICRSCP [place] PREG 68889 GILMER AVENDAÑO UTERUS 8 MEDICAL RI, L[place] W/DETAIL SERV FOUNDATIO EMILIA 1ST GESTATION DOPPLER 45036 GILMER AVENDAÑO ECHO 8 MEDICAL RI, [place] SERV SPECTRAL FOUNDATIO DISPLAY COMPLETE ALPHA-FET 39561 [facility] OPROTEIN 8 DIAGNOSTI DIAGNOSTI SERUM CS, INC. CS, INC. ALPHA-FET 17208 [facility] OPROTEIN 8 DIAGNOSTI DIAGNOSTI SERUM , INC. , INC. CHEMILUMI 84040 [facility] NESCENT 8 DIAGNOSTI DIAGNOSTI ASSAY , INC. , INC. CYTP C/V 03029 [facility] AUTO THIN 8 DIAGNOSTI DIAGNOSTI LYR CS IN CS IN PREPJ SCR MNL RESCR PHYS IADNA 46143 [facility] CHLAMYDIA 8 DIAGNOSTI DIAGNOSTI CS IN CS IN TRACHOM[place] [address] [facility] ESTRIOL 8 DIAGNOSTI DIAGNOSTI CS, INC. CS, INC. URNLS DIP 91257 JAMES ESPINOSA, Trung PRIMARY ARMEN Salazar STICK/TAB CARE LET RGNT CENTERINC NON-AUTO W/O MICRSCP IADNA 85672 [facility] NEISSERIA 8 DIAGNOSTI DIAGNOSTI CS IN CS IN GONORRHOE [place] [address] [facility] 8 DIAGNOSTI DIAGNOSTI CS, INC. CS, INC. COLLECTIO 25033 JAMES ESPINOSA N VENOUS 8 PRIMARY ARMEN Salazar BLOOD CARE VENIPUNCT CENTERINC URE GONADOTRO 57219 [facility] PIN 8 DIAGNOSTI DIAGNOSTI CHORIONIC CS, INC. CS, INC. QUANTITAT BRYAN COLLECTIO 01865 Toan MARIEE VENOUS 8 PRIMARY SUKHDEV Ca BLOOD CARE VENIPUNCT CENTERINC URE URNLS DIP 58742 JAMES PEREZ, Trung PRIMARY SUKHDEV J STICK/TAB CARE LET RGNT CENTERINC NON-AUTO W/O MICRSCP US PREG 42858 JAMES ANILA LATASHA, UTERUS 8 PRIMARY STANLEY R AFTER 1ST CARE TRIMEST CENTERINC GESTATION COLLECTIO 63367 MEADOWVIE MEADOWVIE N VENOUS [address] [facility] VENIPUNCT MEDICAL MEDICAL URE CENTER CENTER GONADOTRO 20364 MEADOWVIE MEADOWVIE PIN [address] [facility] MEDICAL MEDICAL QUANTITAT CENTER CENTER BRYAN US PELVIC 57360 MAYSJW VARGAS, 8 MARK S NONOBSTET RADIOLOGY JOHN PAUL REAL-TIME ASSOCIATE IMAGE S PSC COMPLETE BLOOD 41987 MEADOWVIE MEADOWVIE COUNT [address] [facility] AUTO&AUTO MEDICAL MEDICAL DIFRNTL CENTER CENTER WBC BASIC 68676 MEADOWVIE MEADOWVIE METABOLIC [address] [facility] CALCIUM MEDICAL MEDICAL TOTAL C[facility] CENTER BLOOD 97190 MEADOWVIE MEADOWVIE TYPING [address] [facility] [place] BLOOD 43090 MEADOWVIE MEADOWVIE TYPING [address] [facility] RH (D[facility] CENTER Encounters Encounter Start End Date Code Location Performer Type Date OFFICE 96613 JAMES ANILA MAR OUTPATIEN 7 7 FAMILY T VISIT HEALTH 15 CTR MINUTES OFFICE 53802 PUBLIC OUTPATIEN 7 7 HEALTH T VISIT DHS/CO 15 HEALTH MINUTES OFFICE 70768 JAMES PRASAD OUTPATIEN 7 7 FAMILY T VISIT HEALTH 25 CTR MINUTES OFFICE 79859 JAMES ANILA MAR OUTPATIEN 6 6 FAMILY JAM T VISIT HEALTH 15 CTR MINUTES OFFICE 96675 JAMES BRYAN DEN OUTPATIEN 6 6 FAMILY T VISIT HEALTH 15 CTR MINUTES OFFICE 22612 JAEMS ANILA MAR OUTPATIEN 6 6 FAMILY JAM T VISIT HEALTH 15 CTR MINUTES OFFICE 85672 JAMES ANILA SHOWER OUTPATIEN 6 6 FAMILY [facility] T VISIT HEALTH 25 CTR MINUTES OFFICE 87222 [facility] HANSEN MIR OUTPATIEN 5 5 FAMILY T VISIT HEALTH 15 CTR MINUTES HOSPITAL MEADOWVIE - 5 5 W INPATIENT [facility] MEDICAL OFFICE 03872 JAMES CO SHOWER OUTPATIEN 5 5 FAMILY [facility] T VISIT HEALTH 15 CTR MINUTES HOSPITAL MEADOWVIE - 5 [facility] 71576 [facility] LOM[place] VY OUTPATIEN 5 5 FAMILY T VISIT HEALTH 15 CTR MINUTES OFFICE 74123 [facility] RYANGE TOMY OUTPATIEN 5 5 PRIMARY T VISIT CARE 15 CENTER MINUTES OFFICE 77804 [facility] OLZESKI OUTPATIEN 5 5 PRIMARY MAURICIO T VISIT CARE 15 CENTER MINUTES OFFICE 85245 [facility] OLZESKI OUTPATIEN 5 5 PRIMARY MAURICIO T VISIT CARE 15 CENTER MINUTES OFFICE 41846 [facility]AMES [facility] SURJIT OUTPATIEN 5 5 PRIMARY JOSE T VISIT CARE 15 CENTER MINUTES OFFICE 86293 [facility] HOGGE TOMY OUTPATIEN 5 5 PRIMARY T VISIT CARE 15 CENTER MINUTES OFFICE 45652 [facility] RYANGE TOMY OUTPATIEN 5 5 PRIMARY T VISIT CARE 15 CENTER MINUTES OFFICE 00717 [facility] LOMAX VY OUTPATIEN 5 5 PRIMARY T VISIT CARE 15 CENTER MINUTES HOSPITAL UNIVERSIT - 5 5 Y [facility] T OFFICE 71659 [facility] GANSTER OUTPATIEN 5 5 PRIMARY GLORIA T VISIT CARE 15 CENTER MINUTES OFFICE 56067 [facility] LOMAX VY OUTPATIEN 5 5 PRIMARY T VISIT CARE 10 CENTER MINUTES EMERGENCY 16277 [facility] EMERGENCY T VISIT PHYS HIGH/URGE NT SEVERITY EMERGENCY 84[address] [facility] 4 4 [facility] EMERGENCY T VISIT PHYS HIGH/URGE NT SEVERITY OFFICE 16588 LATASHA OUTPATIEN 2 2 DON T VISIT 15 MINUTES EMERGENCY 24196 NANCY 2 2 W [facility] T VISIT MEDICAL HIGH/URGE NT SEVERITY HOSPITAL NANCY - 2 2 W [facility] MEDICAL EMERGENCY 77845 NANCY 2 2 W [facility] T VISIT MEDICAL HIGH/URGE NT SEVERITY HOSPITAL NANCY - 2 2 W [facility] MEDICAL EMERGENCY 16888 [facility] ABRAMS DEPT 2 2 EMERGENCY [facility] VISIT SERVICES HIGH SEVERITY& THREAT FUN EMERGENCY 47500 [facility] PAGAN 2 2 EMERGENCY [facility] SERVICES T VISIT MODERATE SEVERITY HOSPITAL NANCY - 2 2 W [facility] MEDICAL OFFICE 59564 JESÚS ELIAN OUTPATIEN 2 2 T VISIT 25 MINUTES HOSPITAL NANCY - 2 2 W INPATIENT [facility] NANCY - 2 2 W [facility] MEDICAL OFFICE 11353 SHOWER OUTPATIEN 2 2 [facility] T VISIT 15 MINUTES HOSPITAL NANCY - 2 2 W [facility] MEDICAL OFFICE 51366 LATASHA OUTPATIEN 2 2 DON T VISIT 15 MINUTES OFFICE 64057 LATASHA OUTPATIEN 2 2 DON T VISIT 15 MINUTES OFFICE 26188 BRENNON OUTPATIEN 2 2 NANETTE T VISIT 15 MINUTES OFFICE 41990 SHOWER OUTPATIEN 2 2 [facility] T VISIT 15 MINUTES OFFICE 52793 JESÚS ELIAN OUTPATIEN 2 2 T VISIT 15 MINUTES OFFICE 83607 JESÚS ELIAN OUTPATIEN 2 2 T VISIT 15 MINUTES OFFICE 69284 BRENNON OUTPATIEN 2 2 NANETTE T VISIT 15 MINUTES HOSPITAL MEAWVIE - 2 2 W [facility] MEDICAL OFFICE 99784 JESÚS ELIAN OUTPATIEN 2 2 T VISIT 15 MINUTES OFFICE 94845 LATASHA OUTPATIEN 2 2 DON T VISIT 15 MINUTES OFFICE 69069 [facility] SHOWER OUTPATIEN 2 2 [facility] BL[facility]ENSHIP T VISIT 15 MINUTES OFFICE 57952 SHOWER SHOWER OUTPATIEN 1 1 [facility] T VISIT 15 MINUTES EMERGENCY 74912 VAZQUEZWVIE 1 1 W [facility] T VISIT MEDICAL HIGH/URGE NT SEVERITY HOSPITAL CHARLESVIE - 1 1 W [facility] MEDICAL OFFICE 03169 [place] FERNANDO OUTPATIEN 1 1 [facility] T VISIT ENDOCRINO 25 LOGY, I MINUTES HOSPITAL CHARLESVIE - 1 1 W [facility] CHARLESVIE - 1 1 W [facility] MEDICAL EMERGENCY 37431 CHARLESVIE 1 1 W [facility] VISIT MEDICAL MODERATE SEVERITY EMERGENCY 87202 WAGNER SANCHEZ 1 1 EMERGENCY [facility] T VISIT HIGH/URGE NT SEVERITY OFFICE 17433 [facility] OUTPATIEN 1 1 [facility] VISIT ENDOCRINO 15 LOGY, I MINUTES HOSPITAL VAZQUEZWVIE - 1 1 W [facility] CHARLESVIE - 1 1 W [facility] MEADOWVIE - 1 1 W [facility] MEAWVIE - 1 1 W [facility] MEDICAL OFFICE 53743 JAMES HIGH GANSTER OUTPATIEN 1 1 PRIMARY GLORIA T VISIT CARE 15 CENTER MINUTES OFFICE 90899 JAMES HIGH IAN ANAYA OUTPATIEN 1 1 PRIMARY T VISIT CARE 25 CENTER [facility] HOSPITAL MEAWVIE - 1 1 W [facility] MEDICAL EMERGENCY 24258 NANCY 1 1 W [facility] T VISIT MEDICAL MODERATE SEVERITY EMERGENCY 52033 [facility] FLORES 1 1 EMERGENCY [facility] SERVICES T VISIT HIGH/URGE NT SEVERITY OFFICE 38363 JAMES HIGH SHOWER OUTPATIEN 1 1 PRIMARY [facility] T VISIT CARE 15 CENTER MINUTES EMERGENCY 99481 [facility] SALDANA DEPT 1 1 EMERGENCY [facility]R VISIT SERVICES HIGH SEVERITY& THREAT FUNCJ OFFICE 46309 JAMES HIGH SHOWER OUTPATIEN 1 1 PRIMARY [facility] T VISIT CARE 25 CENTER MINUTES OFFICE 49622 JAMES HARDEN OUTPATIEN 0 0 PRIMARY JANENE T VISIT CARE 15 CENTER MINUTES OFFICE 62060 JAMES LAZO OUTPATIEN 0 0 PRIMARY BRUNER T VISIT CARE DECALVO 15 CENTER [facility] MINUTES HOSPITAL MEAWVIE - 0 0 W [facility] MEDICAL OFFICE 21200 DENYS FERNANDO, OUTPATIEN 0 0 [facility] NAKUL R T VISIT ENDOCRINO 15 LOGY, [facility] MINUTES OFFICE 15832 JAMES VELAQSUEZ OUTPATIEN 0 0 PRIMARY LITO E T VISIT [facility]ARE [facility] MIN[facility] OFFICE 16752 JAMES VELASQUEZ OUTPATIEN 0 0 PRIMARY [facility] VAZQUEZWVIE - 0 0 [facility] OFF[facility] 35710 JAMES LAZO OUTPATIEN 9 9 PRIMARY BRUNER T VISIT CARE DECALVO, 10 CENTERINC SHON MINUTES MISBAH V OFFICE 12303 JAMES VELASQUEZ OUTPATIEN 9 9 PRIMARY LITO E T VISIT CARE 40 CENTERINC MINUTES OFFICE 91842 JAMES VELASQUEZ OUTPATIEN 9 9 PRIMARY LITO E T VISIT CARE 15 CENTERINC MINUTES OFFICE 61304 RADHA ALEXIS 9 9 VALLEY NAKUL R T VISIT ENDOCRINO 25 LOGY, INC MINUTES OFFICE 96315 RICK ALEXISPATIGILES 9 9 VALLEY NAKUL R T VISIT ENDOCRINO 25 LOGY, INC MINUTES OFFICE 02321 TUTU ALEXIS 9 9 VALLEY NAKUL R ION ENDOCRINO NEW/ESTAB LOGY, INC PATIENT 60 MIN HOSPITAL UNIVERSIT - 8 8 Y INPATIENT HOSPITAL HOSPITAL UNIVERSIT - 8 8 [facility] T OFFICE 71468 RADHA OCASIO 8 8 MEDICAL KELBY F T VISIT SERV 40 FOUNDATIO MINUTES OFFICE 05688 RADHA MARIEE 8 8 PRIMARY SUKHDEV J T VISIT CARE 15 CENTERINC MINUTES OFFICE 28076 JAMES AMAYA OUTPATIGILES 8 8 PRIMARY DIOGO L T VISIT CARE 15 CENTERINC MINUTES OFFICE 55453 GILMER AVENDAÑO CONSULTAT 8 8 MEDICAL [place], [place] ION SERV NEW/ESTAB FOUNDATIO PATIENT 30 MIN OFFICE 53046 RADHA KING 8 8 PRIMARY ARMEN W T VISIT CARE 15 CENTERINC MINUTES OFFICE 95786 JAMES PEREZ OUTPATIGILES 8 8 PRIMARY SUKHDEV J T VISIT CARE 15 CENTERINC MINUTES OFFICE 58018 RADHA CHAVEZ 8 8 PRIMARY STANLEY Haney T VISIT CARE [address] [place] [address] NANCY - 8 8 W [facility] C[facility] EMERGENCY 01841 NANCY 8 8 W [facility] VISIT MEDICAL HIGH/URGE CENTER NT SEVERITY
--- OUTSIDE RECORDS SUMMARY | 2016-12-19 22:05 | External Medical Summary Rpt ---
Author Author , Organization [employer] Address Unknown Phone Unavailable Care Team Providers Care Stator Tester Name Role Phone [facility] [place] [facility], Unavailable [...] LITO VELASQUEZ DEN, GORDeion DEN Unavailable Unavailable [facility], Unavailable Unavailable [facility] GIANA CARRILLO Unavailable Unavailable GIANA MEJÍA Unavailable Unavailable QUINCY DE SOUZA Unavailable Unavailable KELBY PARK, Unavailable Unavailable KELBY MATHEWLAMERT HEN, Unavailable Unavailable HARLAMERT HEN MARK VARGAS, Unavailable Unavailable MARK VARGAS TOMY, SP TOMY Unavailable Unavailable ABDULLAHI ECHAVARRIA Unavailable Unavailable NAKUL FRANKLIN, Unavailable Unavailable NAKUL FERNANDO [facility] Unavailable Unavailable PHARMACY, [facility] HANSEN MIR, HANSEN MIR Unavailable Unavailable [...] [facility] Un[facility], [facility] Unavailable Unavailable CENTER, [facility] JERI GREGG, Unavailable Unavailable JERI GREGG [facility] Unavailable Unavailable SERVICES, [facility] Unavailable Unavailable DEPARTMENT, [id number], Unavailable Unavailable [facility] Unavailable Unavailable PHARMACY, [facility] Unavailable Unavailable [place], [facility], [facility] Unavailable Unavailable AMBULANCE, [facility] [employer] Unavailable Unavailable [facility], [facility] [employer] Unavailable Unavailable ASSOCI, [facility] Unavailable Unavailable MEDICAL, [facility] Unavailable Unavailable MEDICAL CENTER, [facility] SHANICE PRASAD Unavailable Unavailable THANIA PALMER, Unavailable Unavailable THANIA PALMER MORRIS Unavailable Unavailable MAR MOHAN, MAR Unavailable Unavailable JAM O'JULIETH SARAI, O'JULIETH Unavailable Unavailable SARAI O'JULIETHREFUGIO MOON, O'JULIETH Unavailable Unavailable SARAI [facility] Unavailable Unavailable ENDOCRINOLOGY, I, [facility]INOLOG[facility], I OLZESKI MAURICIO, OLZESKI Unavailable Unavailable [...] MARY PANG [facility], SHOWER Unavailable Unavailable [facility], SHOWER Unavailable Unavailable [facility] SHOWER, DIOGO L, Unavailable Unavailable SHOWER, DIOGO L [facility] Unavailable Unavailable EMERGENCY PHYS, [facility] YAP KER, YAP KER Unavailable Unavailable SALDANA CHR, Unavailable Unavailable SALDANA CHR MERISSA PONCE, Unavailable Unavailable MERISSA PONCE TUCKER Unavailable Unavailable [facility], Unavailable Unavailable [facility] LATASHA FRANCISCO, LATASHA Unavailable Unavailable NOLAN FRANCISCO, LATASHA Unavailable Unavailable NOLAN ELAINE, LATASHA [...] 10-08-2016 [facility] [id number] INSECT BITE 03-18-2016 [facility] INITIAL ENCOUNTER [id number] INSECT BITE 03-18-2016 [facility] NONVENOMOUS [facility]ALTH CTR LT FOREARM INITIAL ENC [id number] INSECT BITE 03-18-2016 [facility] NONVENOMOUS [facility] CTR RT LOWER LEG INITIAL ENC [id number] INSECT BITE 03-18-2016 [facility] NONVENOMOUS [...] [facility] COMPLICATIN FAMILY G HEALTH CTR CHILDBIRTH L03372 ENDOCRINE 07-09-2015 [facility] NUTRITION & FAMILY METAB DZ HEALTH CTR COMP CHILDBIRTH Z302 ENCOUNTER 07-09-2015 [facility] FOR FAMILY STERILIZATI HEALTH CTR ON Z370 SINGLE LIVE 07-09-2015 [facility] Z3A37 37 WEEKS 07-09-2015 [facility] GESTATION [facility]ILY OF [facility]ALTH CTR N838 OTH 07-07-2015 [facility] NONINFLAMM [place] INC D/O OVARY FALLOP TUBE & BROAD LIG O0943 SUPERVISION 07-07-2015 [facility] PREG REGIONAL W/GRAND MEDICAL MULTIPARITY THIRD TRI A40682 SUP PREG 07-01-2015 [facility] W/OTH POOR FAMILY REPRODUCTIV HEALTH CTR E/OB HX UNS TRI Y65287 SMOKING 07-01-2015 [facility] TOBACCO FAMILY COMP HEALTH CTR THIRD TRIMESTER V73596 ENCOUNTER 07-01-2015 [facility] FOR OTHER REGIONAL PREPROCEDUR MEDICAL AL EXAMINATION Z3009 ENCOUNTER 07-01-2015 [facility]A OT GENERAL FAMILY HEALTH CTR ARCHITECTURAL INSPECTOR&ADV ICE CONTRACEPT Z3A36 36 WEEKS 07-01-2015 [facility] GESTATION FAMILY OF HEALTH CTR X55009 SUP PREG 06-26-2015 [place] [facility] W/OTH POOR SERV REPRODUCTIV FOUNDATION E/OB HX THIRD TRI Z74777 UTERINE 06-26-2015 [place] [facility] SIZE-DATE SERV DISCREPANCY FOUNDATION THIRD TRIMESTER Z36 ENCOUNTER 06-26-2015 [facility] FOR REGIONAL MEDICAL SCREENING OF MOTHER Z3A35 35 WEEKS 06-26-2015 [facility]ST[facility] SERV OF FOUNDATION 2449 UNSPECIFIED 05-08-2015 [facility] FAMILY HYPOTHYROID HEALTH CTR ISM 33664 MATERNAL 05-08-2015 [facility] ANEMIA, FAMILY ANTEPARTUM HEALTH CTR V237 INSUFFICIEN 05-08-2015 [facility] T FAMILY CARE HEALTH CTR V2389 SUPERVISION 05-08-2015 [facility] OF OTHER FAMILY HIGH-RISK HEALTH CTR V2881 ENCOUNTER 04-24-2015 [place] [facility] FOR SERV ANATOMIC FOUNDATION SURVEY V221 SUPERVISION 04-10-2015 [facility] OF OTHER PRIMARY NORMAL CARE CENTER 35550 PREVIOUS 03-27-2015 [place] [facility] C-SECT SERV DELIVERY FOUNDATION ANTPRTM COND/COMP V2341 SUPERVISION 03-27-2015 [place] [facility] SERV W/HISTORY FOUNDATION PRE-TERM LABOR 11260 CERVICAL 03-06-2015 [place] [facility]ICAL INCOMPETENC SERV E ANTPRTM FOUNDATION COND/COMPLI CATION 65559 UNS 02-06-2015 [facility] ABNORM MGMT PRIMARY MOTH CARE CENTER ANTPRTM COND/COMP V2889 OTHER 02-06-2015 [facility] SPECIFIED PRIMARY CARE CENTER SCREENING 97131 UNSPECIFIED 01-29-2015 [facility] ANTEPARTUM PRIMARY HEMORRHAGE CARE CENTER ANTEPARTUM 36474 TOB USE D/O 01-29-2015 [facility] COMP [...] /TEST CARE CENTER UNCONFIRMED 7804 DIZZINESS 08-02-2014 [facility] N EMERGENCY GIDDINESS PHYS 7881 DYSURIA 03-16-2014 [facility] N EMERGENCY PHYS 1121 CANDIDIASIS 06-21-2012 LAT[facility] DON OF VULVA AND VAGINA 4019 UNSPECIFIED 06-18-2012 [facility] ESSENTIAL REGIONAL HYPERTENSIO MEDICAL N 66514 UNSPECIFIED 06-18-2012 [facility] PYELONEPHRI SERVICES TIS 5990 URINARY 06-18-2012 [facility] TRACT REGIONAL INFECTION MEDICAL SITE NOT SPECIFIED 16342 UNSPECIFIED 06-18-2012 [facility] VAGINITIS REGIONAL AND MEDICAL VULVOVAGINI TIS 42098 NAUSEA 06-17-2012 [facility] 24423 ABDOMINAL 06-17-2012 [facility] PAIN, REGIONAL UNSPECIFIED MEDICAL SITE 70806 ABDOMINAL 06-17-2012 [facility] OTHER RADIOLOGY SPECIFIED ASSOCIAT SITE 4553 EXTERNAL 06-03-2012 [facility] HEMORRHOIDS REGIONAL WITHOUT MEDICAL MENTION COMP V242 ROUTINE 05-04-2012 [facility] ELIAN FOLLOW-UP V2501 GENERAL 05-04-2012 J[facility]MER COUNSELING PRESCRIPTIO N ORAL CONTRACEPTS 6146 PELVIC 03-28-2012 [facility] PERITONEAL ADHESIONS, FEMALE 71250 OTH CURRENT 03-28-2012 [facility] MATERNAL CCE W/DELIVERY 35501 PREV C/S 03-28-2012 [facility] DELIV DELIV W/WO MENTION ANTPRTM COND V270 OUTCOME OF 03-28-2012 [facility] DELIVERY SINGLE LIVEBORN 94625 MTRN 03-27-2012 [facility] THYROID [facility]IONAL DYSF DELIV MEDICAL W/WO ANTPRTM COND 79038 TOBACCO USE 03-27-2012 [facility] D/O COMP [facility] PG MEDICAL CHILDBIRTH/ PP DELIVERED 10196 UNSPECIFIED 03-20-2012 [facility] ABNORMALITY OF LABOR ANTEPARTUM V286 SCREENING 03-09-2012 [facility] [place] [place] [address] DECREASED 03-03-2012 [facility] MOVEMENTS UNSPEC EPISODE CARE 92109 UTERINE 03-02-2012 LATASHA FRANCISCO SIZE DATE DISCREPANCY [...] 09-16-2011 [facility] HIGH-RISK 6823 CELLULITIS 08-16-2011 [facility] ABSCESS REGIONAL OF UPPER MEDICAL ARM AND FOREARM 2411 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 [facility] MULTINODULA R GOITER ENDOCRINOLO GY, I 2448 OTHER 03-30-[address] [facility] SPECIFIED ACQUIRED ENDOCRINOLO HYPOTHYROID GY, I ISM 2452 CHRONIC 03-30-[address] [facility] LYMPHOCYTIC ENDOCRINOLO THYROIDITIS GY, I 07149 OTHER 03-30-[address] [facility] MALAISE AND FATIGUE ENDOCRINOLO GY, I 6253 DYSMENORRHE 03-01-2011 [facility] MEDICAL 6262 EXCESSIVE 03-01-2011 [facility] MEDICAL MENSTRUATIO N 23434 THREATENED 02-15-2011 [facility] ANTEPARTUM MEDICAL 632 MISSED 02-08-2011 [facility]ICAL 22064 OTHER SPEC 01-27-2011 [facility] HEMORRHAGE PRIMARY EARLY CARE CENTER ANTEPARTUM 52698 UNSPEC 01-26-2011 [facility] E[facility]LY SERVICES ANTEPARTUM V1582 PERS HX 01-26-2011 [facility] TOBACCO USE REGIONAL [facility] MEDICAL [facility] 6268 OTH D/O 12-31-2010 [facility] MENSTRUATIO PRIMARY N&OTH ABN CARE CENTER BLEED FE GNT TRACT V280 SCREENING 12-31-2010 [facility] CHROMOSOMAL PRIMARY [place]OMALIES [place]OCENTES [place] V7242 12-31-2010 [facility] EXAMINATION PRIMARY OR TEST CARE CENTER POSITIVE RESULT 70623 URINARY 04-21-2010 [facility] FREQUENCY PRIMARY CARE CENTER V2542 SURVEILLANC 04-21-2010 [facility] E PREV PRSC PRIMARY INTRAUTERN CARE CENTER CNTRACPT DEVC 7831 ABNORMAL 01-07-2010 [facility] WEIGHT GAIN PRIMARY CARE CENTERINC 70964 PAIN IN 10-22-2009 [facility] JOINT, PRIMARY SHOULDER CARE REGION CENTERINC 49159 OTHER 07-23-2009 [facility], [facility] JOINT OTHER SPEC SITE 7822 LOCALIZED 07-23-2009 [facility] SUPERFICIAL PRIMARY SWELLING CARE MASS OR CENTERINC LUMP V7232 ENCOUNTER 04-23-2009 [facility] PAP CERV PRIMARY SMER CARE [place] 886[address] OBESITY, 03-06-2009 [facility] UNSPECIFIED HEALTH CENTRAL BANK ACCT V653 DIETARY 03-06-2009 [facility] SURVEILLANC HEALTH E AND CENTRAL COUNSELING BANK ACCT 2469 UNSPECIFIED 02-26-2009 [facility] DISORDER PRIMARY OF THYROID CARE CENTERINC 2461 DYSHORMONOG 02-25-[address] [facility] EN GOITER ENDOCRINOLO GY, INC V251 ENCOUNTER 07-17-2008 [place] [facility] INSERT/MEHNAZ SERV DENAE IU FOUNDATIO CONTRACEPTI VE DEVICE 08706 BREECH 06-12-2008 [place] [facility] PRESENTATIO SERV N W/O FOUNDATIO MENTION VERSION DELIV 26015 CHROMOSM 06-12-2008 [place] [facility] ABNORM SERV FETUS FOUNDATIO AFFECT MGMT MOTH W/DELIV 47252 PREMATURE 06-12-2008 [place] [facility] RUPTURE SERV MEMBRANES FOUNDATIO DELIVERED 70670 C/S DELIV 06-12-2008 [place] [facility] W/O MENTION SERV INDICAT FOUNDATIO UNS EPIS CARE 91544 DELAY DELIV 06-11-2008 [place] [facility] AFTER SERV SPONT/UNSPE FOUNDATIO C RUP MEMB ANTPRTM 51171 PREMATURE 06-10-2008 [place] [facility] RUPTURE SERV MEMBRANES FOUNDATIO ANTEPARTUM 44933 SPOTTING 06-09-2008 [place] [facility] COMP SERV FOUNDATIO ANTEPARTUM COND/COMP 17416 ESOPHAGEAL 05-22-2008 [facility] 60033 PREMATURE 05-22-2008 [facility] WITH DELIVERY 45870 OTH CURRENT 05-22-2008 [facility] CLASSIFIABL E ELSW ANTPRTM 67248 DELAY DELIV 05-22-2008 [facility] SPONT/UNSPE C RUP MEMB DELIV 18970 OLIGOHYDRAM 05-20-2008 [place] [facility] NIOS, SERV ANTEPARTUM FOUNDATIO 15930 THREATENED 04-27-2008 [facility] PREMATURE PRIMARY LABOR CARE ANTEPARTUM CENTERINC 81974 OTHER 04-25-2008 [place] [facility] SPECIFED SERV COMPLICATIO FOUNDATIO N ANTEPARTUM 83417 CNTRL NERV 04-25-2008 [place] [facility] SYS SERV [...] 70 3- 4- 00 00 OL ve AR 33 20 20 78 DS IL 71 [...] 20 FA R CAMPOS 00 11 11 [place] KE LF 1 LY LL AT Y E DR 32 UG 5 MG TA BL ET IB 53 06 06 0 60 20 MA 63 GA Ac UP 74 -0 -0 .0 SO 61 NS ti RO 60 8- 8- 00 N 63 TE ve FE 46 20 20 FA R N 60 11 11 [place] KE 80 5 LY LL [address] UG TA BL ET DO 60 06 06 0 60 30 MA 63 GA Ac CU 25 -0 -0 .0 SO 61 NS ti SA 80 8- 8- 00 N 62 TE ve TE 95 20 20 FA R 50 11 11 [place] KE SO 1 LY LL DI Y UM DR UG 10 0 MG CA PS UL E TR 65 06 06 0 30 5 MA 40 GA Ac AM 16 -0 -0 .0 SO 57 NS ti AD 20 8- 8- 00 N 08 TE ve OL 62 20 20 FA R 71 11 11 AZ KE HC 1 LY LL L Y 50 DR UG MG TA BL ET LE 00 12 06 5 30 30 MA 62 HO Ac VO 37 -2 -0 .0 SO 75 LM ti TH 81 2- 2- 00 N 33 ES ve YR 81 20 20 FA OX 30 10 11 [place] YA IN 1 LY NC E EY 12 DR R 5 UG MC G TA BL ET NI 00 05 05 0 14 7 MA 63 KE Ac TR 37 -2 -2 .0 SO 53 EF ti OF 83 4- 4- 00 N 21 ve UR 42 20 20 FA KI AN 20 11 11 AZ MB TO 1 LY ER IN LY DR MO UG NO -M CR 10 0 MG AR 65 05 05 11 30 30 MA 63 KE Ac EN 16 -1 -1 .0 SO 46 EF ti AT 20 2- 2- 00 N 22 ve AL 66 20 20 FA KI 81 [address] 0 LY ER US LY DR ANGELIA UG BL ET ME 50 08 08 0 14 7 MA 62 RE Ac TR 11 -3 -3 .0 SO 26 DM ti ON 10 N 28 ON ve ID 33 20 20 FA D AZ 40 10 10 AZ ME OL 2 LY LI E SS 50 DR Capri 0 UG A MG TA BL ET LE 00 04 08 3 30 30 MA 61 HO Ac VO 52 -2 -1 .0 SO 71 LM ti TH 71 0- 6- 00 N 38 ES ve YR 34 20 20 FA OX 70 10 10 [place] YA IN 1 LY NC E EY 12 DR Haney 5 UG MC G TA BL ET BU 00 06 06 0 30 30 MA 61 GI Ac AR 59 -1 -1 .0 SO 94 LL ti OP 13 1- 1- 00 N 90 IS ve IO 54 20 20 FA N 16 10 10 AZ AN HC 0 LY NE L E SR DR UG 15 0 MG TA BL ET LE 00 04 05 3 30 30 MA 61 HO Ac VO 52 -2 -2 .0 SO 71 LM ti TH 71 0- 5- 00 N 38 ES ve YR 34 20 20 FA OX 70 10 10 AZ YA IN 1 LY NC E EY 12 DR Haney 5 UG MC G TA BL ET 00 05 05 0 30 30 MA 61 GI Ac 09 -1 -1 .0 SO 82 LL ti 34 3- 3- 00 N 13 IS ve 35 20 20 FA 61 10 10 AZ AN [address] CARLIE SE 31 04 04 5 15 30 MA 61 GI Ac RT 72 -2 -2 .0 SO 72 LL ti RA 20 3- 3- 00 N 63 IS ve LI 21 20 20 FA NE 30 10 10 AZ AN 5 LY NE HC E L DR 50 UG MG TA BL ET LE 00 04 04 3 30 30 MA 61 HO Ac VO 52 -2 -2 .0 SO 71 LM ti TH 71 0- 0- 00 N 38 ES ve YR 34 20 20 FA OX 70 10 10 [place] YA IN 1 LY NC E EY 12 R 5 UG MC G TA BL ET 60 04 04 0 8. 2 MA 20 AD Ac 95 -0 -0 00 SO 12 AM ti 10 2- 2- 0 N 52 S ve 79 20 20 FA JA 67 10 10 [place] ME [address] SEXTON 00 03 03 0 8. 3 MA 20 AD Ac 40 -2 -2 00 SO 12 AM ti 60 9- 9- 0 N 38 S ve 58 20 20 FA JA 20 10 10 AZ ME [address] SEXT[place] CE 00 03 03 0 30 10 MA 61 AD Ac PH 14 -2 -2 .0 SO 58 AM ti AL 39 5- 5- 00 N 56 S ve EX 89 20 20 FA JA IN 70 10 10 AZ ME 5 LY S [address] MG UG CA PS UL E 00 03 03 0 10 2 MA 20 AD Ac 40 -2 -2 .0 SO 12 AM ti 60 5- 5- 00 N 18 S ve 58 20 20 FA JA 20 10 10 AZ ME [address] UG SE 31 03 03 0 15 30 MA 61 GI Ac RT 72 -0 -0 .0 SO 47 LL ti RA 20 3- 3- 00 N 11 IS ve LI 21 20 20 FA NE 30 10 10 AZ AN 5 LY NE HC E L DR 50 UG MG TA BL ET LO 00 03 03 0 10 10 MA 40 GI Ac RA 59 -0 -0 .0 SO 23 LL ti ZE 10 3- 3- 00 N 90 IS ve PA 24 20 20 FA M 11 10 10 AZ AN 1 0 LY NE MG E DR TA UG BL ET LE 00 08 03 5 30 30 MA 60 HO Ac VO 37 -1 -0 .0 SO 45 LM ti TH 81 8- 3- 00 N 02 ES ve YR 81 20 20 FA OX 30 09 10 [place] YA IN 1 LY NC E EY 12 DR R 5 UG MC G TA BL ET LE 00 08 02 04 30 30 MA 60 HO Ac VO 37 -1 -2 .0 SO 45 LM ti TH 81 8- 6- 00 N 02 ES ve YR 81 20 20 FA OX 30 09 10 [place] YA IN 1 LY NC E EY 12 PH R 5 AR MC MA G CY TA BL ET LE 00 08 12 03 30 30 MA 60 HO Ac VO 37 -1 -3 .0 SO 45 LM ti TH 81 8- 1- 00 N 02 ES ve YR 81 20 20 FA OX 30 09 09 [place] YA IN 1 LY NC E EY 12 PH R 5 AR MC MA G CY TA BL ET LE 00 08 12 02 30 30 MA 60 HO Ac VO 37 -1 -0 .0 SO 45 LM ti TH 81 8- 3- 00 N 02 ES ve YR 81 20 20 FA OX 30 09 09 [place] YA IN 1 LY NC E EY 12 PH R 5 AR MC MA G CY TA BL ET LE 00 08 09 01 30 30 MA 60 HO Ac VO 37 -1 -2 .0 SO 45 LM ti TH 81 8- 4- 00 N 02 ES ve YR 81 20 20 FA OX 30 09 09 [place] YA IN 1 LY NC E EY 12 PH R 5 AR MC MA G CY TA BL ET LE 00 08 08 00 30 30 MA 60 HO Ac VO 37 -1 -2 .0 SO 45 LM ti TH 81 8- 7- 00 N 02 ES ve YR 81 20 20 FA OX 30 09 09 [place] YA IN 1 LY NC E EY [...] 20 20 FA OX 50 09 09 [place] YA IN 1 LY NC E EY [...] 10 5- 1- 00 NW 67 ve AR [address] AM 40 [...] 0 OB S /G E YN FA AZ LY HE AL TH 60 05 05 [...] LO 52 6- 3- 00 95 ve AR [address] AM 00 09 09 E EV 1 OB EN HB /G E R YN 40 FA MG AZ LY TA BL HE ET AL TH 00 04 04 00 10 10 MA 40 NE Ac 78 -0 -2 .0 YS 02 US ti 11 6- 3- 00 18 ve 40 [address] 40 09 09 E EV 1 OB EN /G E YN FA AZ LY HE AL TH AZ 50 10 12 00 1. 30 KE [...] OP 2 HE N 5- 32 5 AR 65 10 11 00 30 30 KR [...] complet N 017 ed SOURCE 15:00 CHART [id number] complet NUMBER 017 09 ed 15:00 Trepone [...] NO complet T 017 ed 15:00 CHART [id number] complet NUMBER 017 09 ed 15:00 Chlamyd 10-07- Pending complet ia 017 ed trachom 15:00 atis rRNA [Presen ce] in Unspeci fied specime n by Probe & target amplifi cation method Neisser Pending complet ia 017 ed gonorrh 15:00 oeae rRNA [Presen ce] in Unspeci fied specime n by Probe & target amplifi cation method Procedures Procedure DOS Code Location Performer Comment ECG 70676 [facility] PRASAD ROUTINE 7 FAMILY ECG HEALTH W/LEAST CTR 12 LDS W/I&[place] [address] LAB [facility] FREE 7 [facility] [place] [address] LAB [facility] TRIIODOTH 7 [facility] YRONINE HOLDINGS [place] T3 [place] [place] [address] LAB [facility] LAB [facility] THYROID 7 [facility] STIMULATI HOLDINGS HOLDINGS NG HORMONE TSH PRESSURI 23888 [facility] GORE DEN ED/NONPRE 6 FAMILY SSURIZED [place] [address] LAB [facility] LAB [facility] THYROID 6 [facility] STIMULATI HOLDINGS HOLDINGS NG HORMONE TSH [facility] [address] [facility] [place] [facility] TOMY DISCHARGE 5 [facility] DAY HEALTH MANAGEMEN CTR T 30 MIN/< SBSQ 30837 [facility] 5 [facility]/DAY HEALTH 15 CTR MINUTES LAPAROSCO 14607 [facility] SHOWER PY W/RMVL 5 [facility] ADNEXAL HEALTH STRUCTURE CTR S 52656 [facility] [place] SHOWER DELIVERY 5 [place] [place] [address] [facility] HARLAMERT SURG 5 [place] INC HEN PATHOLOGY GROSS&GERARDO ROSCOPIC EXAM EXTRACTIO [id number] NANCY CRUZ N PRODUCT 5 W [facility] MEDICAL N LOW CERVICAL OP OCCLUSION [id number] NANCY MEAWVIE 5 W W BILATERAL [facility] FALLOPIAN TUBES OPEN CULTURE 01298 NANCY CRUZ BACTERIAL 5 [facility] VE COLONY COUNT URINE URNLS DIP 65249 NANCY CRUZ 5 W W STICK/TAB REGIONAL REGIONAL LET MEDICAL MEDICAL REAGENT AUTO MICROSCOP Y BLOOD 06932 NANCY CRUZ COUNT 5 W W COMPLETE REGIONAL REGIONAL AUTO&AUTO MEDICAL MEDICAL DIFRNTL WBC POTASSIUM 71113 NANCY CRUZ SERUM 5 W W PLASMA/WH REGIONAL REGIONAL OLE BLOOD MEDICAL MEDICAL COLLECTIO 56121 NANCY CRUZ N VENOUS 5 W W BLOOD REGIONAL REGIONAL VENIPUNCT MEDICAL MEDICAL URE US PREG 99859 [place] [facility] UTERUS 5 MEDICAL LD AGA AFTER 1ST SERV TRIMEST FOUNDATIO N GESTATION 58158 [place] [facility] BIOPHYSIC 5 MEDICAL LD AGA AL SERV PROFILE FOUNDATIO W/O N NON-STRES S TESTING CUL 82575 NANCY CRUZ PRSMPTV 5 W W PTHGN REGIONAL REGIONAL ORGANISM MEDICAL MEDICAL SCRN W/COLONY ESTIMJ IADNA 63917 NANCY CRUZ STREPTOCO 5 W W CCUS REGIONAL REGIONAL GROUP B MEDICAL MEDICAL AMPLIFIED PROBE TQ GLUCOSE 19606 [facility] POST 5 [facility] GLUCOSE HOLDINGS HOLDINGS DOSE URNLS DIP 21233 [facility] CO 5 FAMILY FAMILY STICK/TAB HEALTH HEALTH LET RGNT CTR CTR NON-AUTO [place] [address] LAB [facility] THYROID 5 [facility] STIMULATI [place] [address] LAB [facility] LAB [facility] FREE 5 [facility] [place] [address] LAB [facility] LAB [facility] TRIIODOTH 5 [facility] YRONINE HOLDINGS HOLDINGS T3 FREE BLOOD 85496 [facility] [place] VY COUNT 5 FAMILY HEMOGLOBI HEALTH N CTR US PREG 00724 [place] MATHEW UTERUS 5 MEDICAL DOMINIQUE REAL TIME SERV F/U FOUNDATIO TRNSABDL N PER FETUS URNLS DIP 63285 [facility] HOGGE TOMY 5 PRIMARY STICK/TAB CARE LET RGNT CENTER NON-AUTO W/O MICRSCP URNLS DIP 39338 [facility] OLZESKI 5 PRIMARY MAURICIO STICK/TAB CARE LET RGNT CENTER NON-AUTO W/O MICRSCP URNLS DIP 04675 [facility] GUERREROKI 5 PRIMARY MAURICIO STICK/TAB CARE LET RGNT CENTER [place] [address] [place] PLAYFORTH 5 MEDICAL CARLEE UTERUS SERV LIMITED FOUNDATIO 1/> [place] [address] LAB [facility] LAB [facility] THYROID 5 [facility] STIMULATI HOLDINGS HOLDINGS NG HORMONE TSH COLLECTIO 78891 [facility] ABARCA N VENOUS 5 PRIMARY MAURICIO BLOOD CARE VENIPUNCT CENTER URE US PREG 29921 [facility] SURJIT UTERUS 5 PRIMARY JOSE W/DETAIL CARE CENTER EMILIA 1ST GESTATION URNLS DIP 00061 [facility] PICHARDOCKER 5 PRIMARY JOSE STICK/TAB CARE LET RGNT CENTER NON-AUTO W/O MICRSCP [place] PREG 41429 [place] UTERUS 5 MEDICAL LD AGA REAL TIME SERV W/IMAGE [place]OUNDATIO [place] [address]39 [place] UTERUS 5 MEDICAL LD AGA AFTER 1ST SERV TRIMEST FOUNDATIO 1/1ST N GESTATION URNLS DIP 76646 [facility] HOGGE TOMY 5 PRIMARY STICK/TAB CARE LET RGNT CENTER NON-AUTO W/O MICRSCP URNLS DIP 13099 [facility] HOGGE TOMY 5 PRIMARY STICK/TAB CARE LET RGNT CENTER NON-AUTO W/O MICRSCP ALPHA-FET 37497 LAB COR LAB COR OPROTEIN 5 [employer] SERUM HOLDING HOLDING COLLECTIO 19683 JAMES SNOWDEN TOMY N VENOUS 5 PRIMARY BLOOD CARE [place]EN[place]UNCT [place] 45009 [facility] HOGGE TOMY UTERUS 5 PRIMARY REAL TIME CARE F/U CENTER TRNSABDL PER FETUS US PREG 16733 [facility] [place] VY UTERUS 5 PRIMARY REAL TIME CARE F/U CENTER TRNSABDL PER FETUS TOBACCO 74455 [facility] [place] VY USE 5 PRIMARY CESSATION CARE CENTER INTERMEDI ATE 3-10 MINUTES IADNA 86870 LAB [facility] LAB [facility] CHLAMYDIA 5 [employer] HOLDINGS HOLDINGS TRACHOMAT IS AMPLIFIED PROBE TQ URNLS DIP 55213 [facility] [place] VY 5 PRIMARY STICK/TAB CARE LET RGNT CENTER NON-AUTO W/O MICRSCP IADNA 91143 [facility] KIKI 5 [facility] SPECIES HOLDINGS HOLDINGS AMPLIFIED PROBE TQ IADNA 08723 [facility] NEISSERIA 5 [facility] HOLDINGS HOLDINGS GONORRHOE AE AMPLIFIED PROBE TQ IADNA NOS 38595 [facility] LAB ARMANDO 5 [facility] AMPLIFIED HOLDINGS HOLDINGS PROBE TQ EACH ORGANISM IADNA 50780 [facility] TRICHOMON 5 [facility] HOLDINGS VAGINALIS AMPLIFIED PROBE TECH 97662 [facility] 5 Y Y ED PLASMA [facility] PROTEIN-A GONADOTRO 64454 [facility] [address] [facility] [place] [address] [place]ULI[place] NUCHAL 5 MEDICAL SARAI TRANSLUCE SERV NCY 1ST FOUNDATIO GESTATION N IADNA 97928 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 NEISSERIA 5 Y ARM[facility] OF Y ARMANDO OF [facility] GODWIN GONORRHOE H H AE AMPLIFIED PROBE TQ URNLS DIP 09212 [facility] 5 PRIMARY GLORIA STICK/TAB CARE LET [facility] CENTER NON-AUTO W/O MICRSCP CYTP 38868 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 CERVICAL/ 5 Y ARM[facility] OF Y ARMANDO OF VAGINAL [facility] GDOWIN REQ H H INTERP PHYSICIAN CYTP C/V 06822 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 AUTO THIN 5 Y ARM[facility] OF Y ARM[facility] OF LYR [facility]WIN PREPJ SCR H H MNL RESCR PHYS IADNA 17808 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 CHLAMYDIA 5 Y ARM[facility] OF Y ARM[facility] OF [facility] GODWIN TRACHOMAT H H IS AMPLIFIED PROBE TQ IADNA 65139 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 HUMAN 5 Y ARM[facility] OF Y [facility] OF [place] [facility] GODWIN VIRUS H H HIGH-RISK TYPES CREATININ 11726 LAB [facility] LAB ARM[facility]O E OTHER 5 [...] [facility] OR HOLDINGS HOLDINGS METABOLIT E URINE 73539 [facility] VY 5 PRIMARY TEST CARE VISUAL CENTER COLOR CMPRSN METHS SMR PRIM 12443 [facility] MEADOW[facility]IE SRC 2 W W GRAM/GI[facility]IONAL REGIONAL SA STAIN MEDICAL MEDICAL BCT FUNGI/KAVITHA L CUL BACT 85838 [facility] MEADOW[facility]IE XCPT 2 W W URINE [facility] BLOOD/STO MEDICAL MEDICAL OL AEROBIC ISOL IADNA 56131 [facility] MEADOWVIE CHLAMYDIA 2 W W [facility] TRACHOMAT MEDICAL MEDICAL IS AMPLIFIED PROBE TQ SMR PRIM 46553 ME[facility] MEADOW[facility]IE SRC WET 2 W W [facility] NFCT AGT MEDICAL MEDICAL URINE 34420 MEAD[facility]IE MEADOWVIE 2 W W [facility] VISUAL MEDICAL MEDICAL COLOR CMPRSN METHS URNLS DIP 64540 MEAD[facility]IE MEADOWVIE 2 W W STICK/TAB REGIONAL REGIONAL LET MEDICAL MEDICAL REAGENT AUTO MICROSCOP Y CULTURE 56748 MEAD[facility]IE MEADOWVIE BACTERIAL 2 W W [facility] QUANTTATI MEDICAL MEDICAL VE COLONY COUNT URINE COMPREHEN 48106 MEAD[facility]IE MEADOWVIE SIVE 2 W W METABOLIC REGIONAL REGIONAL PANEL MEDICAL MEDICAL URNLS DIP 74319 MEAD[facility]IE MEADOWVIE 2 W W STICK/TAB REGIONAL REGIONAL LET MEDICAL MEDICAL REAGENT AUTO MICROSCOP Y RADEX ABD 20314 MEADOW[facility]IE MEADOWVIE COMPL 2 W W AQT ABD REGIONAL REGIONAL W/S/E/D MEDICAL MEDICAL VIEWS 1 VIEW CH INJECTION J1885 MEADOW[facility]IE MEADOWVIE 2 W W [facility] TROMETHAM INE PER 15 MG URINE 78339 MEADOWVIE MEADOWVIE 2 W W TEST [facility] VISUAL [facility] [place] [place] [address] MEADOWVIE MEADOWVIE LIPASE 2 W W [facility] [place] [address] MEADOWVIE MEADOWVIE AMYLASE 2 W W [facility] [place] [address] MEADOWVIE MEADOWVIE INFUSION 2 W W HYDRATION [facility] MEDICAL MEDICAL ADDITIONA L HOUR COLLECTIO 89547 MEADOWVIE MEADOWVIE N VENOUS 2 W W BLOOD [facility] VENIPUNCT MEDICAL MEDICAL URE THER 98673 MEAWVIE MEADOWVIE PROPH/DX 2 W W NJX IV [facility] MEDICAL MEDICAL SINGLE/1S T SBST/DRUG INJECTION [id number] MEADOWVIE MEADOWVIE 2 W W ONDANSETR [facility] ON HCL MEDICAL MEDICAL PER [address] [facility] MILEAGE 2 ANAT CO ANAT CO PER STATUTE AMBULANCE AMBULANCE MILE AMBULANCE A0429 [facility] SERVICE 2 ANAT CO ANAT CO BLS EMERGENCY AMBULANCE AMBULANCE TRANSPORT BLOOD 26291 MEADOWVIE MEADOWVIE COUNT 2 W W COMPLETE [facility] AUTO&AUTO MEDICAL MEDICAL DIFRNTL WBC THERAPEUT 77294 MEADOWVIE MEADOWVIE IC 2 W W INJECTION [facility] IV PUSH MEDICAL MEDICAL EACH NEW DRUG SBSQ 32919 [facility] 2 NANETTE NANETTE CARE/DAY 15 MINUTES LOW 741 MEADOWVIE MEADOWVIE CERVICAL 2 W W [facility] SECTION MEDICAL MEDICAL OTHER 5459 MEADOWVIE MEADOWVIE LYSIS OF 2 W W PERITONEA [facility] L MEDICAL MEDICAL ADHESIONS ANESTHESI 78486 VERNON JUNIOR A 2 ANT ANT DELIVERY ONLY 88439 JESÚS ELIAN JESÚS ELIAN DELIVERY 2 ONLY 26647 MEADOWVIE MEADOWVIE LUNG 2 W W [facility] LAMELLAR MEDICAL MEDICAL BODY DENSITY 89322 MEAWSATISH MEADOWVIE NONSTRESS 2 W W TEST [facility] MEDICAL MEDICAL COLLECTIO 85413 MEAWSATISH SHUKLAWVIE N VENOUS 2 W W BLOOD [facility] [place] [address] NANCY SHUKLAWVIE GUIDANCE 2 W W [facility] IMG MEDICAL MEDICAL S&I AMNIOCENT 53916 SHOWER SHOWER ESIS 2 BLANKENSHIP BLANKENSHIP DIAGNOSIC BLOOD 65826 VAZQUEZWSATISH MEAWVIE COUNT 2 W W COMPLETE [facility] AUTO&AUTO MEDICAL MEDICAL DIFRNTL WBC POTASSIUM 80540 VAZQUEZWSATISH SHUKLAWSATISH SERUM 2 W W PLASMA/WH [facility] OLE BLOOD MEDICAL MEDICAL URNLS DIP 43544 SHOWER SHOWER 2 BLANKENSHIP BLANKENSHIP STICK/TAB LET RGNT NON-AUTO W/O MICRSCP CUL 88305 NANCY CRUZ PRSMPTV 2 W W [facility] ORGANISM MEDICAL MEDICAL SCRN W/COLONY ESTIMJ URNLS DIP 66860 BRENNON BRENNON 2 NANETTE NANETTE STICK/TAB LET RGNT NON-AUTO W/O MICRSCP 71742 BRENNON BRENNON NONSTRESS 2 NANETTE NANETTE TEST [place] PREG 99167 LATASHA PAGAN UTERUS 2 DON DON REAL TIME F/U TRNSABDL PER FETUS URNLS DIP 80400 LATASHA PAGAN 2 DON DON STICK/TAB LET RGNT NON-AUTO W/O MICRSCP URNLS DIP 78028 LATASHA PAGAN 2 DON DON STICK/TAB LET RGNT NON-AUTO W/O MICRSCP URNLS DIP 48667 BRENNON BRENNON 2 NANETTE NANETTE STICK/TAB LET RGNT NON-AUTO W/O MICRSCP BLOOD 13691 BRENNON BRENNON COUNT 2 NANETTE NANETTE HEMOGLOBI N COLLECTIO 59320 SHOWER SHOWER N VENOUS 2 BLANKENSHIP BLANKENSHIP BLOOD VENIPUNCT URE URNLS DIP 35261 SHOWER SHOWER 2 BLANKENSHIP BLANKENSHIP STICK/TAB LET RGNT NON-AUTO W/O MICRSCP GLUCOSE 39553 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 TOLERANCE 2 Y & Y & TEST GTT BIODIAGNO BIODIAGNO 3 STICS STICS SPECIMENS URNLS DIP 42422 JESÚS ELIAN JESÚS ELIAN 2 STICK/TAB LET RGNT NON-AUTO W/O MICRSCP COLLECTIO 58446 JESÚS ELIAN JESÚS ELIAN N VENOUS 2 [place] [address] 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 THYROID 2 Y & Y & STIMULATI BIODIAGNO BIODIAGNO NG STICS STICS HORMONE TSH DETERMINA 45090 GIANA ARREDONDOON 2 JIM JIM REFRACTIV E STATE OPHTH 37862 GIANA FARIA MEDICAL 2 [facility] XM&EVAL COMPRE NEW PT 1/> VST US PREG 73658 JESÚS ELIAN JESÚS ELIAN UTERUS 2 REAL TIME W/IMAGE DCMTN TRANSVAG COLLECTIO 92576 JESÚS ELIAN JESÚS ELIAN N VENOUS 2 BLOOD VENIPUNCT URE US PREG 66819 JESÚS ELIAN JESÚS ELIAN UTERUS 2 REAL TIME F/[place] [address] 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 THYROID 2 Y & Y & STIMULATI BIODIAGNO BIODIAGNO NG STICS STICS HORMONE TSH URNLS DIP 93794 JESÚS ELIAN JESÚS ELIAN 2 STICK/TAB LET RGNT NON-AUTO W/O MICRSCP URNLS DIP 88505 BRENNON BRENNON 2 NANETTE NANETTE STICK/TAB LET RGNT NON-AUTO W/O MICRSCP US PREG 59817 [facility] UTERUS 2 CARLEE CARLEE REAL TIME F/U TRNSABDL [facility] G0378 NANCY CRUZ OBSERVATI 2 W W ON [facility] MEDICAL PER HOUR US PREG 04241 [facility] UTERUS 2 CARLEE CARLEE REAL TIME F/U TRNSABDL PER FETUS URNLS DIP 78227 JESÚS ELIAN JESÚS ELIAN 2 STICK/TAB LET RGNT NON-AUTO W/O MICRSCP US PREG 35003 O'JULIETH O'JULIETH UTERUS 2 SARAI SARAI W/DETAIL EMILIA 1ST GESTATION URNLS DIP 08259 LATASHA LATASHA 2 DON DON STICK/TAB LET RGNT NON-AUTO W/O MICRSCP IADNA 49507 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 CHLAMYDIA 2 Y & Y & BIODIAGNO BIODIAGNO TRACHOMAT STICS STICS IS AMPLIFIED PROBE TQ CYTP C/V 45196 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 AUTO THIN 2 Y & Y & LYR BIODIAGNO BIODIAGNO PREPJ SCR STICS STICS MNL RESCR PHYS URNLS DIP 05756 SHOWER SHOWER 2 BLANKENSHIP BLANKENSHIP STICK/TAB LET RGNT NON-AUTO W/O MICRSCP IADNA 02819 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 NEISSERIA 2 Y & Y & BIODIAGNO BIODIAGNO GONORRHOE STICS STICS [place] [address] 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 THYROXINE 2 Y & Y & TOTAL BIODIAG[place] [address] 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 THYROID 2 Y & Y & STIMULATI BIODIAGNO BIODIAGNO NG STICS STICS HORMONE TSH COLLECTIO 90451 SHOWER SHOWER N VENOUS 2 BLANKENSHIP BLANKENSHIP BLOOD VENIPUNCT URE US PREG 88521 SHOWER SHOWER UTERUS 1 BLANKENSHIP BLANKENSHIP REAL TIME W/IMAGE DCMTN TRANSVAG COLLECTIO 27059 SHOWER SHOWER N VENOUS 1 BLANKENSHIP BLANKENSHIP BLOOD VENIPUNCT URE MOLEC 31281 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 ISOL/XTRJ 1 Y & Y & HP BIODIAGNO BIODIAGNO NUCLEIC STICS STICS ACID EA TYPE MOLECULAR 80607 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 DX AMP 1 Y & Y & TARGET BIODIAGNO BIODIAGNO MULTIPLEX STICS STICS EA ADDL SEQ MOLEC 89098 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 SEP&ID HI 1 Y & Y & RESOLU BIODIAGNO BIODIAGNO TQ EACH STICS STICS NUCLEIC ACID PREP MOLECULAR 46627 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 DX AMP 1 Y & Y & TARGET BIODIAGNO BIODIAGNO MULTIPLEX STICS STICS 1ST 2 SEQ MOLECULAR 67794 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 1 Y & Y & DIAGNOSTI BIODIAGNO BIODIAGNO CS STICS STICS INTERPRET ATION & REPORT MUTATION 48761 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 ID 1 Y & Y & ENZYMATIC BIODIAGNO BIODIAGNO STICS STICS LIG/PRIME R XTN 1 SGM EA URNLS DIP 52745 SHOWER SHOWER 1 BLANKENSHIP BLANKENSHIP STICK/TAB LET RGNT NON-AUTO W/O MICRSCP CUL BACT 49166 MEADOWVIE MEADOWVIE XCPT 1 W W URINE [facility] BLOOD/STO MEDICAL MEDICAL OL AEROBIC ISOL CUL BACT 32947 MEADOWVIE MEADOWVIE AEROBIC 1 W W ADDL [facility] METHS MEDICAL MEDICAL DEFINITIV E EA ISOL SMR PRIM 85309 MEADOWVIE MEADOWVIE SRC 1 W W GRAM/GIEM [facility] SA STAIN MEDICAL MEDICAL BCT FUNGI/KAVITHA L SUSCEPTIB 14917 MEADOWVIE MEADOWVIE LTY STDY 1 W W ANTIMICRB [facility] IAL MEDICAL MEDICAL MICRO/AGA R DILUTJ SUSCEPTIB 73950 MEADOWVIE MEADOWVIE ILITY 1 W W STUDY [facility] ANTIMICRO MEDICAL MEDICAL BIAL DISK METHOD THERAPEUT 43894 MEADOWVIE MEADOWVIE IC 1 W W PROPHYLAC [facility] TIC/DX MEDICAL MEDICAL INJECTION SUBQ/IM INCISION 29273 MEADOWVIE MEADOWVIE & 1 W W DRAINAGE [facility] ABSCESS MEDICAL MEDICAL SIMPLE/SI NGLE INCISION 72001 WAGNER PAGAN & 1 EMERGENCY [place] [facility] ABSCESS COMPLIC[place] [address] MEADOWVIE MEADOWVIE TRIIODOTH 1 W W [facility] MEDICAL MEDICAL BLOOD 03857 MEADOWVIE MEADOWVIE COUNT 1 W W COMPLETE [facility] AUTO&AUTO [place] [address] MEADOWVIE MEADOWVIE THYROID 1 W W STIMULATI [facility] [place] [address] MEADOWVIE MEADOWVIE FREE 1 W W [facility] MEDICAL COLLECTIO 77043 MEADOWVIE MEADOWVIE N VENOUS 1 W W BLOOD [facility] VENIPUNCT [facility] MEDICAL URE IRON 15399 MEADOWVIE MEADOWVIE BINDING 1 W W CAPACITY [facility] MEDICAL US SOFT 00803 [place] FERNA[place] TISSUE 1 [facility] HEAD & ENDOCRINO NECK REAL LOGY, [place] [address] MEADOWVIE MEADOWVIE IRON 1 [place] [address] MEADOWVIE MEADOWVIE FERRITIN 1 W W [facility] URINE 29671 MEADOWVIE MEADOWVIE 1 W W TEST [facility] MEDICAL COLOR CMPRSN METHS COLLECTIO 01778 MEADOWVIE MEADOWVIE N VENOUS 1 W W BLOOD [facility] MEDICAL URE GONADOTRO 96725 MEADOWVIE MEADOWVIE PIN 1 W W [facility] MEDICAL QUANTITAT BRYAN GONADOTRO 34410 MEADOWVIE MEADOWVIE PIN 1 W W [facility] MEDICAL QUANTITAT BRYAN COLLECTIO 45870 MEADOWVIE MEADOWVIE N VENOUS 1 W W BLOOD [facility] MEDICAL MEDICAL URE COLLECTIO 56288 MEADOWVIE MEADOWVIE N VENOUS 1 W W BLOOD [facility] MEDICAL URE GONADOTRO 60446 MEADOWVIE MEADOWVIE PIN 1 W W [facility] MEDICAL QUANTITAT BRYAN GONADOTRO 26960 MEADOWVIE MEADOWVIE PIN 1 W W [facility] MEDICAL QUANTITAT BRYAN COLLECTIO 32193 MEADOWVIE MEADOWVIE N VENOUS 1 W W BLOOD [facility] MED[facility] URE COLLECTIO 79922 JAMES CO GANSTER N VENOUS 1 PRIMARY [facility] BLOOD CARE VENIPUNCT CENTER URE US PREG 33158 JAMES [facility] GANSTER UTERUS 1 PRIMARY [facility] REAL TIME CARE W/IMAGE CENTER DCMTN TRANSVAG URNLS DIP 10906 JAMES CO GANSTER 1 PRIMARY [place] STICK/TAB CARE LET RGNT CENTER NON-AUTO W/O MICRSCP BLOOD 39378 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 COUNT 1 Y & Y & COMPLETE BIODIAGNO BIODIAGNO AUTO&AUTO STICS STICS DIFRNTL WBC BLOOD 01457 NANCY MEADOWVIE TYPING 1 W W SEROLOGIC [facility] RH (D) [facility] MEDICAL BLOOD 99392 MEADOWVIE MEADOWVIE TYPING 1 W W SEROLOGIC [facility] ABO [facility] MEDICAL IADNA 12002 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 NEISSERIA 1 Y & Y & BIODIAGNO BIODIAGNO GONORRHOE STICS STICS AE AMPLIFIED PROBE TQ URNLS DIP 33115 JAMES CO YOUNG HÉCTOR 1 PRIMARY STICK/TAB CARE LET RGNT CENTER NON-AUTO W/O MICRSCP IADNA 25102 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 CHLAMYDIA 1 Y & Y & BIODIAGNO BIODIAGNO TRACHOMAT STICS STICS IS AMPLIFIED PROBE TQ CYTP C/V 15660 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 AUTO THIN 1 Y & Y & LYR BIODIAGNO BIODIAGNO PREPJ SCR STICS STICS MNL RESCR PHYS COLLECTIO 51915 MEADOWSATISH MEADOWVIE N VENOUS 1 W W BLOOD [facility] VENIPUNCT [facility] MEDICAL URE GONADOTRO 08537 MEADOWVIE MEADOWVIE PIN 1 W W CHORIONIC [facility] QUANTITAT BRYAN BLOOD 14496 MEADOWVIE MEADOWVIE COUNT 1 W W COMPLETE [facility] AUTO&AUTO MEDICAL MEDICAL [place] PREG 87329 JAMES CO SHOWER UTERUS 1 PRIMARY BLANKENSHIP REAL TIME CARE W/IMAGE CENTER DCMTN TRANSVAG URNLS DIP 57418 JAMES CO SHOWER 1 PRIMARY BLANKENSHIP STICK/TAB CARE LET RGNT CENTER NON-AUTO W/O MICRSCP URNLS DIP 31826 JAMES CO JESÚS ELIAN 1 PRIMARY STICK/TAB CARE LET RGNT CENTER NON-AUTO W/O MICRSCP URINE 07703 JAMES CO SHOWER 1 PRIMARY BLANKENSHIP TEST CARE VISUAL CENTER COLOR CMPRSN METHS COLLECTIO 17104 JAMES CO JAMES CO N VENOUS 1 PRIMARY PRIMARY BLOOD CARE [place] [address] JAMES HARDEN TRANSVAGI 0 PRIMARY JANENE [facility]ARE CENTER CULTURE 94701 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 BACTERIAL 0 Y & Y & BIODIAGNO BIODIAGNO QUANTTATI STICMayo STICS VE COLONY COUNT URINE URNLS DIP 45105 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 0 Y & Y & STICK/TAB BIODIAGNO BIODIAGNO LET RGNT STICS STICS AUTO W/[place] [address] MEADOWVIE MEADOWVIE IRON 0 W W [facility] [place] [address] MEADOWVIE MEADOWVIE FOLIC 0 W W ACID [facility] SERUM MEDICAL MEDICAL 25 92294 MEADOWVIE MEADOWVIE HYDROXY 0 W W INCLUDES [facility] MEDICAL MEDICAL IF PERFORMED CYANOCOBA 34254 MEADOWVIE MEADOWVIE KOSTA 0 W W VITAMIN [facility] B-12 [place] [address] MEADOWVIE MEADOWVIE FERRITIN 0 W W [facility] MEDICAL MEDICAL IRON 36612 MEADOWVIE MEADOWVIE BINDING 0 W W CAPACITY [facility] MEDICAL DEHYDROEP 17649 MEADOWVIE MEADOWVIE IANDROSTE 0 W W JOHN [facility] MEDICAL BLOOD 45974 MEADOWVIE MEADOWVIE COUNT 0 W W COMPLETE [facility] AUTO&AUTO MEDICAL MEDICAL DIFRNTL WBC COLLECTIO 64763 MEADOWVIE MEADOWVIE N VENOUS 0 W W BLOOD [facility] VENIPUNCT [facility] [place] [address] MEADOWVIE MEADOWVIE TRIIODOTH 0 W W YRONINE [facility] T[place] [address] MEADOWVIE MEADOWVIE FREE 0 W W THYROXINE [facility] [address] MEADOWVIE MEADOWVIE THYROID [address] [facility] [place] [address] MEADOWVIE MEADOWVIE THYROID [address] [facility] MED[facility] [place] [address] MEADOWVIE MEADOWVIE FREE 0 W W THYROXINE [facility] [place] [address] NANCY CRUZ TRIIODOTH 0 W W YRONINE [facility] T[facility] COLLECTIO 62041 NANCY CRUZ N VENOUS 0 W W BLOOD [facility] VENIPUNCT [facility] [place] [address] [facility] EXTREMITY 9 NON-VASC DIAGNOSTI DIAGNOSTI C CENTER, C CENTER, REAL-TIME [facility] IMG IADNA 74620 [facility] NEISSERIA 9 [facility] GONORRHOE AE AMPLIFIED PROBE TQ IADNA 44713 [facility] CHLAMYDIA 9 [facility] TRACHOMAT IS AMPLIFIED PROBE TQ CYTP 63741 [facility] CERV/VAG 9 [facility] AUTO THIN LAYER PREP MNL SCREEN MEDICAL 94674 DHS/CO ANAT CO NUTRITION 9 [facility] ASSMT&IVN BANK ACCT T TJ INDIV EACH 15 [place] COLLECTIO 48094 DENYS FERNANDO N VENOUS 9 ANGELA MOTA R BLOOD ENDOCRINO V[place] [address] LAB ARMANDO LAB ARMANDO TRIIODOTH 9 AMERIC AMERIC YRONINE [place] [address] LAB ARMANDO LAB ARMANDO FREE 9 AMERIC AMERIC [place] [address] LAB ARMANDO LAB ARMANDO THYROID 9 AMERIC AMERIC STIMULATI [employer] [place] [address] LAB ARMANDO LAB ARMANDO SOMATOMED 9 AMERIC [place] [address] LAB ARMANDO LAB ARMANDO THYROID 9 AMERIC AMERIC STIMULATI [employer] [place] [address] LAB ARMANDO LAB ARMANDO FREE 9 AMERIC AMERIC THYROXINE HOLDING HOLDING COLLECTIO 85500 DENYS FERNANDO N VENOUS 9 ANGELA Haney BLOOD ENDOCRINO VENIPUNCT LOGY, INC URE US SOFT 21445 DENYS FERNANDO TISSUE 9 ANGELA Haney HEAD & ENDOCRINO NECK REAL LOGY, INC TIME IMGE DOCM INSERTION 57144 GILMER PALMER, 8 MEDICAL THANIA C INTRAUTER SERV INE FOUNDATIO DEVICE IUD ANESTHESI 49652 [place] COLCLOUGH A 8 MEDICAL , GAMALIEL SERV [place] [address] [place] RON ATWOOD SURG 8 MEDICAL Y PATHOLOGY SERV FOUNDATIO GROSS&GERARDO ROSCOPIC EXAM CLASSICAL 740 [facility] 8 Y [facility] [address] [place] GARABED[place] DELIVERY 8 MEDICAL N, ONLY SERV ANNA MARIE W/POSTPAR [place] [address] [place] MATHEW, UTERUS 8 MEDICAL KELBY F REAL TIME SERV F/U FOUNDATIO TRNSABDL PER FETUS 10-20-200 92164 [place] CARINA, NONSTRESS 8 MEDICAL FLORES C TEST SERV FOUNDATIO SBSQ 10-20-200 13299 [place] [address] MEDICAL KELBY F CARE/DAY SERV 35 FOUNDATIO MINUTES SBSQ 10-19-[id number] [place] [address] MEDICAL DIPAK CARE/DAY SERV Y 35 FOUNDATIO MINUTES 10-19-200 66501 [place] MARYSOL, NONSTRESS 8 MEDICAL JERI B TEST SERV FOUNDATIO SBSQ 10-18-[id number] [place] [address] MEDICAL DIPAK CARE/DAY SERV Y 35 FOUNDATIO MINUTES SBSQ 10-17-[id number] [place] [address] MEDICAL DIPAK CARE/DAY SERV Y 35 FOUNDATIO MINUTES SBSQ 10-16-[id number] [place] [address] MEDICAL DIPAK CARE/DAY SERV Y 35 FOUNDATIO MINUTES SBSQ 10-15-[id number] [place] [address] MEDICAL DIPAK CARE/DAY SERV Y 35 FOUNDATIO MINUTES SBSQ 10-14-[id number] [place] [address] MEDICAL DIPAK CARE/DAY SERV Y 35 FOUNDATIO MINUTES 10-14-200 82313 [place] NONSTRESS 8 MEDICAL N, TEST SERV ANNA MARIE FOUNDATIO SBSQ 10-13-[id number] [place] [address] MEDICAL DIPAK CARE/DAY SERV Y 35 FOUNDATIO MINUTES 10-13-200 83202 [place] G[place] NONSTRESS 8 MEDICAL N, TEST SERV ANNA MARIE FOUNDATIO 10-12-200 58222 [place] MATHEW, NONSTRESS 8 MEDICAL KELBY F TEST SERV FOUNDATIO SBSQ 10-12-200 84520 [facility] 8 MEDICAL KELBY F CARE/DAY SERV 35 FOUNDATIO MINUTES SBSQ 10200 [address] [place] [address] MEDICAL KELBY F CARE/DAY SERV 35 FOUNDATIO MINUTES SBSQ 10200 [address] [place] [address] MEDICAL [place], [place] CARE/DAY SERV 35 FOUNDATIO MINUTES 200 45582 [place] PONCE, NONSTRESS 8 MEDICAL MERISSA M TEST SERV FOUNDATIO SBSQ 200 83967 [facility] 8 MEDICAL [place], [place] CARE/DAY SERV 35 FOUNDATIO MINUTES SBSQ 200 93513 [facility] 8 MEDICAL [place], [place] CARE/DAY SERV 35 FOUNDATIO MINUTES 06134 [place] PANG, NONSTRESS 8 MEDICAL MARY J TEST SERV FOUNDATIO SBSQ 200 66348 [facility] 8 MEDICAL [place], [place] CARE/DAY SERV 35 FOUNDATIO MINUTES SBSQ 10200 73019 [facility] 8 MEDICAL [place], [place] CARE/DAY SERV 35 FOUNDATIO MINUTES SBSQ 10-[address] [facility] 8 MEDICAL SUSAN E CARE/DAY SERV 35 FOUNDATIO MINUTES SBSQ 10-200 66830 [facility] 8 MEDICAL KELBY F CARE/DAY SERV 35 FOUNDATIO MINUTES 200 65744 [facility], NONSTRESS 8 MEDICAL MERISSA M TEST SERV FOUNDATIO SBSQ 200 53633 [place] [address] MEDICAL KELBY F CARE/DAY SERV 35 FOUNDATIO MINUTES 58977 [facility] MONITORIN 8 Y Y G LABOR [facility] PHYS WRITTEN REPORT URNLS DIP 12453 [facility] 8 Y Y STICK/TAB [facility] LET RGNT [place]O [place] [address] [facility] 8 Y Y UTERUS [facility] LIMITED 1/> [place] [address] GILMER MATHEW, 8 MEDICAL KELBY F UTERUS SERV LIMITED FOUNDATIO 1/> FETUSES URNLS DIP 54943 JAMES PEREZ, 8 PRIMARY SUKHDEV J STICK/TAB CARE LET RGNT CENTERINC NON-AUTO W/O MICRSCP URNLS DIP 83457 JAMES HIGH SHOWER, 8 PRIMARY DIOGO Atkins STICK/TAB CARE LET RGNT CENTERINC NON-AUTO W/[place] MICRSCP [place] PREG 08198 GILMER AVENDAÑO UTERUS 8 MEDICAL RI, [place] W/DETAIL SERV FOUNDATIO EMILIA 1ST GESTATION DOPPLER 11030 GILMER AVENDAÑO ECHO 8 MEDICAL [place], [place] SERV SPECTRAL FOUNDATIO DISPLAY COMPLETE ALPHA-FET 16052 [facility] OPROTEIN 8 DIAGNOSTI DIAGNOSTI SERUM CS, INC. CS, INC. ALPHA-FET 28375 [facility] OPROTEIN 8 DIAGNOSTI DIAGNOSTI SERUM , INC. , INC. CHEMILUMI 82983 [facility] NESCENT 8 DIAGNOSTI DIAGNOSTI ASSAY , INC. , INC. CYTP C/V 03259 [facility] AUTO THIN 8 DIAGNOSTI DIAGNOSTI LYR CS IN CS IN PREPJ SCR MNL RESCR PHYS IADNA 91548 [facility] CHLAMYDIA 8 DIAGNOSTI DIAGNOSTI CS IN CS IN TRACHOMAT [place] [address] [facility] ESTRIOL 8 DIAGNOSTI DIAGNOSTI CS, INC. CS, INC. URNLS DIP 07748 JAMES ESPINOSA, Trung PRIMARY ARMEN Salazar STICK/TAB CARE LET RGNT CENTERINC NON-AUTO W/O MICRSCP IADNA 53368 [facility] NEISSERIA 8 DIAGNOSTI DIAGNOSTI CS IN CS IN GONORRHOE [place] AM[place] [address] [facility] 8 DIAGNOSTI DIAGNOSTI CS, INC. CS, INC. COLLECTIO 66263 JAMES ESPINOSA N VENOUS 8 PRIMARY ARMEN Salazar BLOOD CARE VENIPUNCT CENTERINC URE GONADOTRO 74648 [facility] PIN 8 DIAGNOSTI DIAGNOSTI CHORIONIC CS, INC. CS, INC. QUANTITAT BRYAN COLLECTIO 66131 Toan MARIEE VENOUS 8 PRIMARY SUKHDEV Ca BLOOD CARE VENIPUNCT CENTERINC URE URNLS DIP 12949 JAMES PEREZ, Trung PRIMARY SUKHDEV J STICK/TAB CARE LET RGNT CENTERINC NON-AUTO W/O MICRSCP US PREG 08268 JAMES ANILA LATASHA, UTERUS 8 PRIMARY STANLEY R AFTER 1ST CARE TRIMEST CENTERINC GESTATION COLLECTIO 42914 MEADOWVIE MEADOWVIE N VENOUS 8 W W BLOOD [facility] VENIPUNCT MEDICAL MEDICAL URE CENTER CENTER GONADOTRO 84199 MEADOWVIE MEADOWVIE PIN 8 W W CHORIONIC [facility] MEDICAL MEDICAL QUANTITAT CENTER CENTER BRYAN US PELVIC 46389 MAYSJW VARGAS, 8 MARK S NONOBSTET RADIOLOGY JOHN PAUL REAL-TIME ASSOCIATE IMAGE S PSC COMPLETE BLOOD 08894 MEADOWVIE MEADOWVIE COUNT 8 W W COMPLETE [facility] AUTO&AUTO MEDICAL MEDICAL DIFRNTL CENTER CENTER WBC BASIC 19224 MEADOWVIE MEADOWVIE METABOLIC 8 W W PANEL [facility] CALCIUM MEDICAL MEDICAL TOTAL CENTER CENTER BLOOD 86046 MEADOWVIE MEADOWVIE TYPING 8 W W SEROLOGIC [facility] ABO [facility] [place] BLOOD 19640 MEADOWVIE MEADOWVIE TYPING 8 W W SEROLOGIC [facility] RH (D) MED[facility] CENTER Encounters Encounter Start End Date Code Location Performer Type Date OFFICE [id number] JAMES ANILA MAR OUTPATIEN 7 7 FAMILY T VISIT HEALTH 15 CTR MINUTES OFFICE 50031 PUBLIC OUTPATIEN 7 7 HEALTH T VISIT DHS/CO 15 HEALTH MINUTES OFFICE 02373 JAMES PRASAD OUTPATIEN 7 7 FAMILY T VISIT HEALTH 25 CTR MINUTES OFFICE 75232 JAMES ANILA MAR OUTPATIEN 6 6 FAMILY JAM T VISIT HEALTH 15 CTR MINUTES OFFICE 86820 JAEMS BRYAN DEN OUTPATIEN 6 6 FAMILY T VISIT HEALTH 15 CTR MINUTES OFFICE 86322 JAMES ANILA MAR OUTPATIEN 6 6 FAMILY JAM T VISIT HEALTH 15 CTR MINUTES OFFICE 16148 JAMES ANILA SHOWER OUTPATIEN 6 6 FAMILY [facility] T VISIT [facility] 25 CTR MINUTES OFFICE 35547 [facility] HANSEN MIR OUTPATIEN 5 5 FAMILY T VISIT HEALTH 15 CTR MINUTES [facility]OSPITAL [facility] - 5 5 W [facility]IENT [facility] 96036 [facility] SHOWER OUTPATIEN 5 5 FAMILY [facility] T VISIT HEALTH 15 CTR MINUTES [facility] 46888 [facility] [place] VY OUTPATIEN 5 5 FAMILY T VISIT HEALTH 15 CTR MINUTES OFFICE 97236 [facility] RYANGE TOMY OUTPATIEN 5 5 PRIMARY T VISIT CARE 15 CENTER MINUTES OFFICE 42286 [facility] OLZESKI OUTPATIEN 5 5 PRIMARY MAURICIO T VISIT CARE 15 CENTER MINUTES OFFICE 80438 [facility] OLZESKI OUTPATIEN 5 5 PRIMARY MAURICIO T VISIT CARE 15 CENTER MINUTES OFFICE 89445 [facility] SURJIT OUTPATIEN 5 5 PRIMARY JOSE T VISIT CARE 15 CENTER MINUTES OFFICE 49590 [facility] HOGGE TOMY OUTPATIEN 5 5 PRIMARY T VISIT CARE 15 CENTER MINUTES OFFICE 44766 [facility] RYANGE TOMY OUTPATIEN 5 5 PRIMARY T VISIT CARE 15 CENTER MINUTES OFFICE 50215 [facility] [place] VY OUTPATIEN 5 5 PRIMARY T VISIT CARE 15 CENTER MINUTES HOSPITAL UNIVERSIT - 5 5 Y [facility] T OFFICE 24394 [facility] GANSTER OUTPATIEN 5 5 PRIMARY GLORIA T VISIT CARE 15 CENTER MINUTES OFFICE 86101 [facility] [place] VY OUTPATIEN 5 5 PRIMARY T VISIT CARE 10 CENTER MINUTES [facility] 18559 [facility] DEPART[facility] EMERGENCY T VISIT PHYS HIGH/URGE NT SEVERITY EMERGENCY 42337 [facility] 4 4 [facility] EMERGENCY T VISIT PHYS HIGH/URGE NT SEVERITY OFFICE 58975 LATASHA OUTPATIEN 2 2 DON T VISIT 15 MINUTES EMERGENCY 38371 NANCY 2 2 W [facility] T VISIT MEDICAL HIGH/URGE NT SEVERITY HOSPITAL NANCY - 2 2 W [facility] MEDICAL EMERGENCY 13166 NANCY 2 2 W [facility] T VISIT MEDICAL HIGH/URGE NT SEVERITY HOSPITAL NANCY - 2 2 W [facility] MEDICAL EMERGENCY 45664 [facility] DEPT 2 2 EMERGENCY [facility] HIGH SEVERITY& THREAT FUN EMERGENCY 98044 [facility] 2 2 EMERGENCY [facility] SERVICES T VISIT MODERATE SEVERITY HOSPITAL NANCY - 2 2 W [facility] MEDICAL OFFICE 72996 JESÚS ELINA OUTPATIEN 2 2 T VISIT 25 MINUTES HOSPITAL NANCY - 2 2 W INPATIENT [facility] NANCY - 2 2 W [facility] MEDICAL OFFICE 72197 SHOWER OUTPATIEN 2 2 [facility] T VISIT 15 MINUTES HOSPITAL NANCY - 2 2 W [facility] MEDICAL OFFICE 94613 LATASHA OUTPATIEN 2 2 DON T VISIT 15 MINUTES OFFICE 11250 LATASHA OUTPATIEN 2 2 DON T VISIT 15 MINUTES OFFICE 56406 BRENNON OUTPATIEN 2 2 NANETTE T VISIT 15 MINUTES OFFICE 34036 [facility]OWER OUTPATIEN 2 2 [facility] T VISIT 15 MINUTES OFFICE 56442 JESÚS ELIAN OUTPATIEN 2 2 T VISIT 15 MINUTES OFFICE 73268 JESÚS ELIAN OUTPATIEN 2 2 T VISIT 15 MINUTES OFFICE 29350 BRENNON OUTPATIEN 2 2 NANETTE T VISIT 15 MINUTES HOSPITAL MEAWVIE - 2 2 W [facility] MEDICAL OFFICE 39059 JESÚS ELIAN OUTPATIEN 2 2 T VISIT 15 MINUTES OFFICE 14579 LATASHA OUTPATIEN 2 2 DON T VISIT 15 MINUTES OFFICE 92373 [facility] OUTPATIEN 2 2 BL[facility] BLANKENSHIP T VISIT 15 MINUTES OFFICE 94932 [facility] OUTPATIEN 1 1 [facility] BL[facility]IP T VISIT 15 MINUTES EMERGENCY 63377 VAZQUEZWVIE 1 1 W [facility] T VISIT MEDICAL HIGH/URGE NT SEVERITY HOSPITAL CHARLESVIE - 1 1 W [facility] MEDICAL OFFICE 10193 [place] FERNANDO OUTPATIEN 1 1 [facility] T VISIT ENDOCRINO 25 LOGY, I MINUTES HOSPITAL CHARLESVIE - 1 1 [facility] CHARLESVIE - 1 1 W [facility] MEDICAL EMERGENCY 34526 CHARLESVIE 1 1 W [facility] VISIT MEDICAL MODERATE SEVERITY EMERGENCY 07582 WAGNER SANCHEZ 1 1 EMERGENCY [facility] T VISIT HIGH/URGE NT SEVERITY OFFICE 95283 [facility] OUTPATIEN 1 1 [facility]CR[facility] 15 LOGY, I MINUTES HOSPITAL VAZQUEZWVIE - 1 1 [facility] 1 1 [facility] MEADOW[facility] - 1 1 [facility] MEAWVIE - 1 1 W [facility] MEDICAL OFFICE 19243 JAMES HIGH GANSTER OUTPATIEN 1 1 [facility]IMARY GLORIA T VISIT CARE 15 CENTER MINUTES OFFICE 73946 JAMES HIGH IAN ANAYA OUTPATIEN 1 1 PRIMARY T VISIT CARE 25 CENTER [facility] HOSPITAL MEAWVIE - 1 1 W [facility] MEDICAL EMERGENCY 37229 NANCY 1 1 W [facility] T VISIT MEDICAL MODERATE SEVERITY EMERGENCY 37343 WAGNER FLORES 1 1 EMERGENCY [facility] T VISIT HIGH/URGE NT SEVERITY OFFICE 71197 JAMES HIGH SHOWER OUTPATIEN 1 1 PRIMARY BLANKENSHIP T VISIT CARE 15 CENTER MINUTES EMERGENCY 00931 WAGNER SALDANA DEPT 1 1 EMERGENCY [facility] VISIT SERVICES HIGH SEVERITY& THREAT FUNCJ OFFICE 02763 JAMES HIGH SHOWER OUTPATIEN 1 1 PRIMARY BLANKENSHIP T VISIT CARE 25 CENTER MINUTES OFFICE 43739 JAMES HARDEN OUTPATIEN 0 0 PRIMARY JANENE T VISIT CARE 15 CENTER MINUTES OFFICE 48614 JAMES LAZO OUTPATIEN 0 0 PRIMARY BRUNER T VISIT CARE DECALVO 15 CENTER [facility] MINUTES HOSPITAL MEAWVIE - 0 0 W [facility] MEDICAL OFFICE 21607 DENYS FERNANDO, OUTPATIEN 0 0 [facility] NAKUL R T VISIT ENDOCRINO 15 LOGY, [facility] MINUTES OFFICE 57035 JAMES VELASQUEZ OUTPATIEN 0 0 PRIMARY L[facility]O E [facility] 32502 JAMES VELASQUEZ OUTPATIEN 0 0 [facility] 0 0 [facility] OFF[facility] 95620 JAMES LAZO OUTPATIEN 9 9 PRIMARY BRUNER T VISIT CARE DECALVO, 10 CENTERINC SHON MINUTES MISBAH V OFFICE 92992 JAMES VELASQUEZ OUTPATIEN 9 9 PRIMARY LITO E T VISIT CARE 40 CENTERINC MINUTES OFFICE 86960 JAMES VELASQUEZ OUTPATIEN 9 9 PRIMARY LITO E T VISIT CARE 15 CENTERINC MINUTES OFFICE 23998 RADHA ALEXIS 9 9 VALLEY NAKUL R T VISIT ENDOCRINO 25 LOGY, INC MINUTES OFFICE 54233 RICK ALEXISPATIGILES 9 9 [facility] NAKUL R T VISIT ENDOCRINO 25 [facility], INC MINUTES OFFICE 00965 TUTU ALEXIS 9 9 VALLEY NAKUL R ION ENDOCRINO NEW/ESTAB LOGY, INC PATIENT 60 MIN HOSPITAL UNIVERSIT - 8 8 Y INPATIENT HOSPITAL HOSPITAL [facility]ERS[facility] 43512 RADHA OCASIO 8 8 MEDICAL KELBY F T VISIT SERV 40 FOUNDATIO MINUTES OFFICE 97599 RADHA MARIEE 8 8 PRIMARY SUKHDEV J T VISIT CARE 15 CENTERINC MINUTES OFFICE 30684 JAMES AMAYA OUTPATIGILES 8 8 PRIMARY DIOGO L T VISIT CARE 15 CENTERINC MINUTES OFFICE 25848 GILMER AVENDAÑO CONSULTAT 8 8 MEDICAL RI, LORNE ION SERV NEW/ESTAB FOUNDATIO PATIENT 30 MIN OFFICE 87428 RADHA KING 8 8 PRIMARY ARMEN W T VISIT CARE 15 CENTERINC MINUTES OFFICE 97908 JAMES PEREZ OUTPATIGILES 8 8 PRIMARY SUKHDEV J T VISIT CARE 15 CENTERINC MINUTES OFFICE 77745 RADHA CHAVEZ 8 8 PRIMARY TSANLEY Haney T VISIT CARE [address] [place] [address] NANCY - 8 8 W [facility] EMERGENCY 88496 NANCY 8 8 W [facility] VISIT MEDICAL HIGH/URGE CENTER NT SEVERITY
--- OUTSIDE RECORDS SUMMARY | 2016-12-19 22:11 | External Medical Summary Rpt ---
Author Author , Organization [employer] Address Unknown Phone Unavailable Care Team Providers Care Plasma Specialist Name Role Phone [facility] [place] [facility], Unavailable Unavailable [facility] [place] [facility] ABRAMS COURTNEY, ABRAMS Unavailable Unavailable GAMALIEL WEAVER, Unavailable Unavailable GAMALIEL JAIN COX ELI Unavailable Unavailable MARQUES AGA, Unavailable Unavailable MARQUES [...] SANCHEZ GIANFERRARI, LORNE, Unavailable Unavailable GIANFERRARI, LORNE JUNIOR ANT, JUNIOR Unavailable Unavailable LITO MARI, Unavailable Unavailable LITO VELASQUEZ DEN, RANDI DEN Unavailable Unavailable [facility], Unavailable Unavailable [facility] GIANA CARRILLO Unavailable Unavailable JIM FERNANDEZ, GIANA Unavailable Unavailable JIM STUBBS, Unavailable Unavailable QUINCY SANTOS Unavailable Unavailable KELBY PARK, Unavailable Unavailable KELBY MATHEW HARLAMERT HEN, Unavailable Unavailable HARLAMERT HEN HOGGE TOMY, HOGGE TOMY Unavailable Unavailable ABDULLAHI ECHAVARRIA Unavailable Unavailable NAKUL FRANKLIN, Unavailable Unavailable NAKUL FERNANDO [facility] Unavailable Unavailable PHARMACY, [facility] HANSEN MIR, HANSEN MIR Unavailable Unavailable [id number], Unavailable Unavailable [id number] Unavailable Unavailable [facility], [facility] Unavailable Unavailable [facility], [facility] Unavailable Unavailable [facility], [facility] Unavailable Unavailable [facility], [facility] Unavailable Unavailable [facility], [facility], Unavailable Unavailable [facility] & Unavailable Unavailable [facility] Unavailable Unavailable [facility], [facility] Unavailable Unavailable [facility], [facility] DIPAK LOCKETT Y, Unavailable Unavailable DIPAK LOCKETT Y RAI, RON Y, RAI, RON Unavailable Unavailable [facility], [facility] Unavailable Unavailable CENTER, [facility] JERI GREGG B, Unavailable Unavailable MARYSOL JERI B [facility] Unavailable Unavailable SERVICES, [facility] Unavailable Unavailable DEPARTMENT, [facility] Unavailable Unavailable [facility] Unavailable Unavailable PHARMACY, [facility] Unavailable Unavailable [place], [facility], [facility], [facility] Unavailable Unavailable [facility], [facility] Unavailable [facility]available [facility] Unavailable Unavailable [facility] Unavailable Unavailable MEDICAL, [facility] Unavailable Unavailable [facility]ICAL CENTER, [facility] SHANICE PRASAD Unavailable Unavailable THANIA PALMER, Unavailable Unavailable THANIA PALMER MORRIS Unavailable Unavailable MAR MOHAN, MAR Unavailable Unavailable JAM O'JULIETHREFUGIO MOON, O'JULIETH Unavailable Unavailable SARAI O'JULIETHREFUGIO MOON, O'JULIETH Unavailable Unavailable SARAI [facility] Unavailable Unavailable ENDOCRINOLOGY, I, [facility], I OLZESKI MAURICIO, OLZESKI Unavailable Unavailable SUKHDEV THOMAS, Unavailable Unavailable SUKHDEV PEREZ [facility] CARLEE, Unavailable Unavailable [facility] CARLEE PORNOY MURTAZA, PORNOY Unavailable Unavailable MURTAZA BRENNON NANETTE, BRENNON Unavailable Unavailable NANETTE BRENNON NANETTE, BRENNON Unavailable Unavailable NANETTE [facility] Unavailable Un[facility], [facility], Unavailable Unavailable [facility], Unavailable Unavailable INC., [facility] FINA JANENE, FINA Unavailable Unavailable JANENE [id number], Unavailable Unavailable [id number] MARY PANG, Unavailable Unavailable MARY PANG [facility], SHOWER Unavailable Unavailable [facility], SHOWER Unavailable Unavailable [facility] SHOWER, DIOGO L, Unavailable Unavailable SHOWER, DIOGO L [facility] Unavailable Unavailable EMERGENCY PHYS, [facility] YAP KER, YAP KER Unavailable Unavailable SALDANA CHR, Unavailable Unavailable SALDANA CHR MERISSA PONCE, Unavailable Unavailable MERISSA PONCE TUCKER Unavailable Unavailable [facility], Unavailable Unavailable [facility] LATASHA FRANCISCO, LATASHA Unavailable Unavailable NOLAN [...] 10-08-2016 [facility] [id number] INSECT BITE 03-18-2016 [facility] FOREARM [facility] CTR INITIAL ENCOUNTER [id number] INSECT BITE 03-18-2016 [facility] NONVENOMOUS HEALTH CTR LT FOREARM INITIAL ENC [id number] INSECT BITE 03-18-2016 [facility] NONVENOMOUS [facility]ALTH CTR RT LOWER LEG INITIAL ENC [id number] INSECT BITE 03-18-2016 [facility]ILY NONVENOMOUS [...] HEALTH CTR DELIVERY O9902 ANEMIA 07-09-2015 [facility] COMPLICATIN [facility]ILY G HEALTH CTR CHILDBIRTH O59595 ENDOCRINE 07-09-2015 [facility] NUTRITION & FAMILY METAB DZ HEALTH CTR COMP CHILDBIRTH Z302 ENCOUNTER 07-09-2015 [facility] FOR FAMILY STERILIZATI HEALTH CTR ON Z370 SINGLE LIVE 07-09-2015 [facility] Z3A37 37 WEEKS 07-09-2015 [facility] GESTATION [facility] N838 OTH 07-07-2015 [facility] NONINFLAMM CO INC D/O OVARY FALLOP TUBE & BROAD LIG O0943 SUPERVISION 07-07-2015 [facility] PREG REGIONAL W/GRAND MEDICAL MULTIPARITY THIRD TRI S55391 SUP PREG 07-01-2015 [facility] W/OTH POOR FAMILY REPRODUCTIV HEALTH CTR E/OB HX UNS TRI U51338 SMOKING 07-01-2015 [facility] TOBACCO FAMILY [facility]ALTH CTR THIRD TRIMESTER M12930 ENCOUNTER 07-01-2015 [facility] FOR OTHER REGIONAL PREPROCEDUR MEDICAL AL EXAMINATION Z3009 ENCOUNTER 07-01-2015 [facility]ILA OT [facility] 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 Z3A36 36 WEEKS 07-01-2015 [facility] CTR [id number] SUP PREG 06-26-2015 [facility]ICAL W/OTH POOR SERV REPRODUCTIV FOUNDATION E/OB HX THIRD TRI E24109 UTERINE 06-26-2015 [facility] SIZE-DATE SERV DISCREPANCY FOUNDATION THIRD TRIMESTER Z36 ENCOUNTER 06-26-2015 [facility] FOR REGIONAL MEDICAL SCREENING OF MOTHER Z3A35 35 WEEKS 06-26-2015 [place] [facility]ST[facility] SERV OF FOUNDATION 2449 UNSPECIFIED 05-08-2015 [facility] FAMILY HYPOTHYROID HEALTH CTR ISM 04736 MATERNAL 05-08-2015 [facility] ANEMIA, FAMILY ANTEPARTUM HEALTH CTR V237 INSUFFICIEN 05-08-2015 [facility] T [facility] CTR V2389 SUPERVISION 05-08-2015 [facility] OF OTHER FAMILY HIGH-RISK HEALTH CTR V2881 ENCOUNTER 04-24-2015 [facility] FOR SERV ANATOMIC FOUNDATION SURVEY V221 SUPERVISION 04-10-2015 [facility] OF OTHER PRIMARY NORMAL CARE CENTER 31564 PREVIOUS 03-27-2015 [facility] C-SECT SERV DELIVERY FOUNDATION ANTPRTM COND/COMP V2341 SUPERVISION 03-27-2015 [facility] W/HISTORY FOUNDATION PRE-TERM LABOR 29017 CERVICAL 03-06-2015 [facility] INCOMPETENC SERV E ANTPRTM FOUNDATION COND/COMPLI CATION 29174 UNS 02-06-2015 [facility] ABNORM MGMT PRIMARY MOTH CARE CENTER ANTPRTM COND/COMP V2889 OTHER 02-06-2015 [facility] SPECIFIED PRIMARY CARE CENTER SCREENING 46602 UNSPECIFIED 01-29-2015 [facility] ANTEPARTUM PRIMARY HEMORRHAGE CARE CENTER ANTEPARTUM 85835 TOB USE D/O 01-29-2015 [facility] COMP [...] /TEST CARE CENTER UNCONFIRMED 7804 DIZZINESS 08-02-2014 [facility] G[facility] 7881 DYSURIA 03-16-2014 [facility] N EMERGENCY PHYS 1121 CANDIDIASIS 06-21-2012 LATASHA DON OF VULVA AND VAGINA 4019 UNSPECIFIED 06-18-2012 [facility] ESSENTIAL REGIONAL HYPERTENSIO MEDICAL N 57728 UNSPECIFIED 06-18-2012 [facility] PYELONEPHRI SERVICES TIS 5990 URINARY 06-18-2012 [facility] TRACT REGIONAL INFECTION MEDICAL SITE NOT SPECIFIED 43110 UNSPECIFIED 06-18-2012 [facility] VAGINITIS REGIONAL AND MEDICAL VULVOVAGINI TIS 90538 NAUSEA 06-17-2012 [facility] 97975 ABDOMINAL 06-17-2012 [facility] PAIN, REGIONAL UNSPECIFIED MEDICAL SITE 15324 ABDOMINAL 06-17-2012 [facility] PA[facility] OTHER RADIOLOGY SPECIFIED ASSOCIAT SITE 4553 EXTERNAL 06-03-2012 [facility] HEMORRHOIDS REGIONAL WITHOUT MEDICAL MENTION COMP V242 ROUTINE 05-04-2012 [facility] FOLLOW-UP V2501 GENERAL 05-04-2012 [facility] COUNSELING PRESCRIPTIO N ORAL CONTRACEPTS 6146 PELVIC 03-28-2012 BREN[facility] NANETTE PERITONEAL ADHESIONS, FEMALE 34593 OTH CURRENT 03-28-2012 [facility] NANETTE MATERNAL CCE W/DELIVERY 15691 PREV C/S 03-28-2012 [facility] NANETTE DELIV DELIV W/WO MENTION ANTPRTM COND V270 OUTCOME OF 03-28-2012 [facility] NANETTE DELIVERY SINGLE LIVEBORN 18623 MTRN 03-27-2012 [facility] DYSF DELIV MEDICAL W/WO ANTPRTM COND 99903 TOBACCO USE 03-27-2012 [facility] D/O COMP REGIONAL PG MEDICAL CHILDBIRTH/ PP DELIVERED 17754 UNSPECIFIED 03-20-2012 [facility] ABNORMALITY OF LABOR ANTEPARTUM V286 SCREENING 03-09-2012 [facility] [place] [address] DECREASED 03-03-2012 BRENNON NANETTE MOVEMENTS UNSPEC EPISODE CARE 81325 UTERINE 03-02-2012 LATASHA FRANCISCO SIZE DATE DISCREPANCY ANTPRTM COND/COMPL V232 03-02-2012 LATASHA FRANCISCO WITH HISTORY OF 3671 MYOPIA 12-31-2011 GIANA JIM V284 12-23-2011 [facility] PLUMMER SCR GROWTH RETARDATION USING US V2882 ENCOUNTER 12-23-2011 [facility] PLUMMER SCREENING FOR RISK OF PRE-TERM LABOR V2349 SUPERVISION 12-09-2011 BRENNON NANETTE W/OTH POOR OBSTETRIC HX V2381 SUPERVISION 11-04-2011 O'JULIETHREFUGIO MOON HIGH-RISK PG ELDER PRIMIGRAVID A V239 UNSPECIFIED 09-16-2011 [facility] HIGH-RISK 6823 CELLULITIS 08-16-2011 [facility] AND ABSCESS REGIONAL OF UPPER MEDICAL ARM AND FOREARM 2411 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 [facility] MULTINODULA R GOITER ENDOCRINOLO GY, I 2448 OTHER 03-30-2011 [facility] SPECIFIED ACQUIRED ENDOCRINOLO HYPOTHYROID GY, I ISM 2452 CHRONIC 03-30-2011 [facility] LYMPHOCYTIC ENDOCRINOLO THYROIDITIS GY, I 44640 OTHER 03-30-2011 [facility] MALAISE AND FATIGUE ENDOCRINOLO GY, I 6253 DYSMENORRHE 03-01-2011 [facility] A [facility]ICAL 6262 EXCESSIVE 03-01-2011 [facility] OR FREQUENT REGIONAL MEDICAL MENSTRUATIO N 75950 THREATENED 02-15-2011 [facility] , REGIONAL ANTEPARTUM MEDICAL 632 MISSED 02-08-2011 [facility] REG[facility]AL MEDICAL 98066 OTHER SPEC 01-27-2011 [facility] HEMORRHAGE PRIMARY EARLY CARE CENTER ANTEPARTUM 95395 UNSPEC 01-26-2011 [facility] EMERGENCY EARLY SERVICES ANTEPARTUM V1582 PERS HX 01-26-2011 [facility] TOBACCO USE REGIONAL PRESENTING MEDICAL HAZARDS HEALTH 6268 OTH D/O 12-31-2010 [facility] MENSTRUATIO PRIMARY N&OTH ABN CARE CENTER BLEED FE GNT TRACT V280 SCREENING 12-31-2010 [facility] CHROMOSOMAL PRIMARY ANOMALIES [place] AM[place]OCENTES [place] V7242 12-31-2010 [facility] EXAMINATION PRIMARY OR TEST CARE CENTER POSITIVE RESULT 83498 URINARY 04-21-2010 [facility] FREQUENCY PRIMARY CARE CENTER V2542 SURVEILLANC 04-21-2010 [facility] E PREV PRSC PRIMARY INTRAUTERN CARE CENTER CNTRACPT DEVC 7831 ABNORMAL 01-07-2010 [facility] WEIGHT GAIN PRIMARY CARE CENTERINC 71624 PAIN IN 10-22-2009 [facility] JOINT, PRIMARY SHOULDER CARE REGION CENTERINC 18296 OTHER 07-23-2009 [facility]ABLE [facility], [facility] JOINT OTHER SPEC SITE 7822 LOCALIZED 07-23-2009 [facility] SUPERFICIAL PRIMARY SWELLING CARE MASS OR CENTERINC LUMP V7232 ENCOUNTER 04-23-2009 [facility] PAP CERV PRIMARY SMER CARE [place] [address] OBESITY, 03-06-2009 [facility] UNSPECIFIED HEALTH CENTRAL BANK ACCT V653 DIETARY 03-06-2009 [facility] SURVEILLANC HEALTH E AND CENTRAL COUNSELING BANK ACCT 2469 UNSPECIFIED 02-26-2009 [facility] DISORDER PRIMARY OF THYROID CARE CENTERINC 2461 DYSHORMONOG 02-25-2009 [facility] EN GOITER ENDOCRINOLO GY, INC V251 ENCOUNTER 07-17-2008 [facility] INSERT/MEHNAZ SERV DENAE IU FOUNDATIO CONTRACEPTI VE DEVICE 78977 BREECH 06-12-2008 [facility] PRESENTATIO SERV N W/O FOUNDATIO MENTION VERSION DELIV 77571 CHROMOSM 06-12-2008 [facility] ABNORM SERV FETUS FOUNDATIO AFFECT MGMT MOTH W/DELIV 91009 PREMATURE 06-12-2008 [facility] RUPTURE SERV MEMBRANES FOUNDATIO DELIVERED 46412 C/S DELIV 06-12-2008 [facility] W/O MENTION SERV INDICAT FOUNDATIO UNS EPIS CARE 10757 DELAY DELIV 06-11-2008 [facility] AFTER SERV SPONT/UNSPE FOUNDATIO C RUP MEMB ANTPRTM 23046 PREMATURE 06-10-2008 [facility] RUPTURE SERV MEMBRANES FOUNDATIO ANTEPARTUM 57879 SPOTTING 06-09-2008 [facility] COMP SERV FOUNDATIO ANTEPARTUM COND/COMP 35791 ESOPHAGEAL 05-22-2008 [facility] 55350 PREMATURE 05-22-2008 [facility] WITH DELIVERY 40963 OTH CURRENT 05-22-2008 [facility] CLASSIFIABL E ELSW ANTPRTM 10291 DELAY DELIV 05-22-2008 [facility] SPONT/UNSPE C RUP MEMB DELIV 29700 OLIGOHYDRAM 05-20-2008 [facility] NIOS, SERV ANTEPARTUM FOUNDATIO 59243 THREATENED 04-27-2008 [facility] PREMATURE PRIMARY LABOR CARE ANTEPARTUM CENTERINC 41006 OTHER 04-25-2008 [place] [facility] SPECIFED SERV COMPLICATIO FOUNDATIO N ANTEPARTUM 93515 CNTRL NERV 04-25-2008 [place] [facility] S[facility] SERV MALFORMATIO FOUNDATIO N IN FETUS ANTEPARTUM 7965 ABNORMAL 04-25-2008 [place] [facility] FINDING ON SERV FOUNDATIO SCREENING 6238 OTHER 03-05-2008 [facility] SPECIFIED [facility]AL [facility] DISORDER VAGINA Medications Na ND Rx Da Fi Fi [...] 70 3- 4- 00 00 OL ve UT 33 20 20 78 DS IL 71 17 17 97 0 72 PH HC AR L MA 20 CY MG TA BL ET LE 00 03 30 30 00 KR Ac VO 52 -2 -1 .0 00 OG ti TH 71 2 7- 00 06 ER ve YR 34 20 20 58 OX 71 17 17 80 PH IN 0 15 AR E MA 12 CY 5 MC #4 G 20 TA BL ET AM 00 02 03 30 30 00 RE Ac LO 37 -1 -1 .0 00 YN ti DI 85 7- 0- 00 00 OL ve PI 20 20 20 78 DS NE 87 17 17 90 7 42 PH BE AR SY MA LA CY TE 2. 5 MG TA B ME 29 02 03 14 7 00 RE Ac TR 30 -1 -1 .0 00 YN ti ON 00 7- 0- 00 00 OL ve ID 22 20 20 78 DS AZ 70 17 17 90 OL 1 43 PH E AR 50 MA 0 CY MG TA BL ET LE 00 01 02 30 30 00 KR Ac VO 52 -1 -1 .0 00 OG ti TH 71 7- 7- 00 06 ER ve YR 34 20 20 58 OX 71 17 17 80 PH IN 0 15 AR E MA 12 CY 5 MC #4 G 20 TA BL ET TR 65 06 06 0 30 5 MA 40 GA Ac AM 16 -0 -0 .0 SO 57 NS ti AD 20 8- 8- 00 N 08 TE ve OL 62 20 20 FA R 71 11 11 FL KE HC 1 LY LL L Y 50 DR UG MG TA BL ET DO 60 06 06 0 60 30 MA 63 GA Ac CU 25 -0 -0 .0 SO 61 NS ti SA 80 8- 8- 00 N 62 TE ve TE 95 20 20 FA R 50 11 11 FL KE SO 1 LY LL DI Y UM DR UG 10 0 MG CA PS UL E IB 53 06 06 0 60 20 MA 63 GA Ac UP 74 -0 -0 .0 SO 61 NS ti RO 60 8- 8- 00 N 63 TE ve FE 46 20 20 FA R N 60 11 11 FL KE 80 5 LY LL [address] CARLIE TA BL ET FE 00 06 06 0 90 30 MA 63 GA Ac RR 67 -0 -0 .0 SO 61 NS ti OU 70 8- 8- 00 N 64 TE ve S 07 20 20 FA R CAMPOS 00 11 11 FL KE LF 1 LY LL AT Y E DR 32 UG 5 MG TA BL ET LE 00 12 06 5 30 30 MA 62 HO Ac VO 37 -2 -0 .0 SO 75 LM ti TH 81 2- 2- 00 N 33 ES ve YR 81 20 20 FA OX 30 10 11 FL YA IN 1 LY NC E EY 12 DR R 5 UG MC G TA BL ET NI 00 05 05 0 14 7 MA 63 KE Ac TR 37 -2 -2 .0 SO 53 EF ti OF 83 4- 4- 00 N 21 ve UR 42 20 20 FA KI AN 20 11 11 FL MB TO 1 LY ER IN LY DR MO UG NO -M CR 10 0 MG UT 65 05 05 11 30 30 MA 63 KE Ac EN 16 -1 -1 .0 SO 46 EF ti AT 20 2- 2- 00 N 22 ve AL 66 20 20 FA KI [address] 0 LY ER US LY DR TA UG BL ET ME 50 08 08 0 14 7 MA 62 RE Ac TR 11 -3 -3 .0 SO 26 DM ti ON 10 N 28 ON ve ID 33 20 20 FA D AZ 40 10 10 FL ME OL 2 LY LI E SS 50 DR A 0 UG A MG TA BL ET LE 00 04 08 3 30 30 MA 61 HO Ac VO 52 -2 -1 .0 SO 71 LM ti TH 71 0- 6- 00 N 38 ES ve YR 34 20 20 FA OX 70 10 10 FL YA IN 1 LY NC E EY 12 DR Haney 5 UG MC G TA BL ET BU 00 06 06 0 30 30 MA 61 GI Ac UT 59 -1 -1 .0 SO 94 LL ti OP 13 1- 1- 00 N 90 IS ve IO 54 20 20 FA N 16 10 10 FL AN HC 0 LY NE L E SR UG 15 0 MG TA BL ET LE 00 04 05 3 30 30 MA 61 HO Ac VO 52 -2 -2 .0 SO 71 LM ti TH 71 0- 5- 00 N 38 ES ve YR 34 20 20 FA OX 70 10 10 FL YA IN 1 LY NC E EY 12 DR Haney 5 UG MC G TA BL ET 00 05 05 0 30 30 MA 61 GI Ac 09 -1 -1 .0 SO 82 LL ti 34 3- 3- 00 N 13 IS ve 35 20 20 FA 61 10 10 FL AN [address] [place]EXT[place] SE 31 04 04 5 15 30 MA 61 GI Ac RT 72 -2 -2 .0 SO 72 LL ti RA 20 3- 3- 00 N 63 IS ve LI 21 20 20 FA NE 30 10 10 FL AN 5 LY NE HC E L DR 50 UG MG TA BL ET LE 00 04 04 3 30 30 MA 61 HO Ac VO 52 -2 -2 .0 SO 71 LM ti TH 71 0- 0- 00 N 38 ES ve YR 34 20 20 FA OX 70 10 10 FL YA IN 1 LY NC E EY 12 DR Haney 5 UG MC G TA BL ET 60 04 04 0 8. 2 MA 20 AD Ac 95 -0 -0 00 SO 12 AM ti 10 2- 2- 0 N 52 S ve 79 20 20 FA JA 67 10 10 FL ME [address] UG 00 03 03 0 8. 3 MA 20 AD Ac 40 -2 -2 00 SO 12 AM ti 60 9- 9- 0 N 38 S ve 58 20 20 FA JA 20 10 10 FL ME 1 LY S E UG 00 03 03 0 10 2 MA 20 AD Ac 40 -2 -2 .0 SO 12 AM ti 60 5- 5- 00 N 18 S ve 58 20 20 FA JA 20 10 10 FL ME [address] SEXTON CE 00 03 03 0 30 10 MA 61 AD Ac PH 14 -2 -2 .0 SO 58 AM ti AL 39 5- 5- 00 N 56 S ve EX 89 20 20 FA JA IN 70 10 10 FL ME 5 LY S [address] MG UG CA PS UL E LO 00 03 03 0 10 10 MA 40 GI Ac RA 59 -0 -0 .0 SO 23 LL ti ZE 10 3- 3- 00 N 90 IS ve PA 24 20 20 FA M 11 10 10 FL AN 1 0 LY NE MG E DR TA UG BL ET SE 31 03 03 0 15 30 MA 61 GI Ac RT 72 -0 -0 .0 SO 47 LL ti RA 20 3- 3- 00 N 11 IS ve LI 21 20 20 FA NE 30 10 10 FL AN 5 LY NE HC E L DR 50 UG MG TA BL ET LE 00 08 03 5 30 30 MA 60 HO Ac VO 37 -1 -0 .0 SO 45 LM ti TH 81 8- 3- 00 N 02 ES ve YR 81 20 20 FA OX 30 09 10 FL YA IN 1 LY NC E EY 12 DR R 5 UG MC G TA BL ET LE 00 08 02 04 30 30 MA 60 HO Ac VO 37 -1 -2 .0 SO 45 LM ti TH 81 8- 6- 00 N 02 ES ve YR 81 20 20 FA OX 30 09 10 FL YA IN 1 LY NC E EY 12 PH R 5 AR MC TAMY G CY TA BL ET LE 00 08 12 03 30 30 MA 60 HO Ac VO 37 -1 -3 .0 SO 45 LM ti TH 81 8- 1- 00 N 02 ES ve YR 81 20 20 FA OX 30 09 09 FL YA IN 1 LY NC E EY 12 PH R 5 AR MC TAMY G CY TA BL ET LE 00 08 12 02 30 30 MA 60 HO Ac VO 37 -1 -0 .0 SO 45 LM ti TH 81 8- 3- 00 N 02 ES ve YR 81 20 20 FA OX 30 09 09 FL YA IN 1 LY NC E EY 12 PH R 5 AR MC MA G CY TA BL ET LE 00 08 09 01 30 30 MA 60 HO Ac VO 37 -1 -2 .0 SO 45 LM ti TH 81 8- 4- 00 N 02 ES ve YR 81 20 20 FA OX 30 09 09 FL YA IN 1 LY NC E EY 12 PH R 5 AR MC TAMY G CY TA BL ET LE 00 08 08 00 30 30 MA 60 HO Ac VO 37 -1 -2 .0 SO 45 LM ti TH 81 8- 7- 00 N 02 ES ve YR 81 20 20 FA OX 30 09 09 FL YA IN 1 LY NC E EY [...] 20 20 FA OX 50 09 09 FL YA IN 1 LY NC E EY [...] 0 OB S /G E YN FA FL LY HE AL TH 60 05 05 00 6. 2 GR 31 AD Ac 95 -1 -2 00 EE 36 AM ti 10 5- 1- 0 NW 57 S ve 79 20 20 EL JA 67 09 09 LS ME 0 S PH E AR MA CY LE 00 05 05 00 30 30 [...] 10 5- 1- 00 NW 67 ve UT [address] AM 40 09 09 LS EV 1 EN HB PH E R AR 40 MA CY MG TA BL ET CI 60 04 04 00 15 15 MA 60 NE Ac TA 50 -0 -2 .0 YS 08 US ti LO 52 6- 3- 00 95 ve UT 52 [address] AM 00 09 09 E EV 1 OB EN HB /G E R YN 40 FA MG FL LY TA BL HE ET AL TH 00 04 04 00 10 10 MA 40 NE Ac 78 -0 -2 .0 YS 02 US ti 11 6- 3- 00 18 ve 40 [address] 40 09 09 E EV 1 OB EN /G E YN FA FL LY HE AL TH FL 50 10 12 00 1. 30 KE 12 No Ac RE 41 -2 -0 00 NT 11 t ti NA 90 3- 4- 0 UC 79 Av ve 42 20 20 [place] 8 ai SY [address] 1 CL bl EM IN e IC PH AR MA CY UT 65 10 11 00 30 30 KR 63 No Ac EN 16 -2 -0 .0 OG 11 t ti AT 20 3- 7- 00 ER 61 Av ve AL 66 20 20 6 ai [address] 0 AR bl US M e L- TA 35 BL 2 ET OX 00 10 11 00 40 3 KR 22 No Ac YC 40 -2 -0 .0 OG 45 t ti OD 60 3- 7- 00 ER 23 Av ve ON 51 20 20 4 ai E- 20 08 08 PH la AC 5 AR bl ET M e AM L- IN 35 OP 2 HE N 5- 32 5 DO 00 10 11 00 60 30 KR 63 No Ac CU 53 -2 -0 .0 OG 11 t ti SA 63 3- 7- 00 ER 61 Av ve TE 75 20 20 5 ai 70 08 08 PH la SO 1 AR bl DI M e UM L- 35 25 2 0 MG CA PS UL E 53 10 11 00 60 15 KR 63 No Ac 74 -2 -0 .0 OG 11 t ti 60 3- 7- 00 ER 61 Av ve 13 20 20 4 ai 20 08 08 PH la 5 AR bl M e L- 35 2 AZ 59 09 09 00 7. 7 RI 62 No Ac IT 76 -1 -2 00 TE 41 t ti HR 23 8- 6- 0 70 Av ve OM 06 20 20 AI ai YC 00 08 08 D la IN 2 PH bl AR e 25 M 0 #3 MG 92 0 TA BL ET AM 67 09 09 00 56 7 RI 62 No Ac PI 25 -1 -2 .0 TE 41 t ti CI 30 8- 6- 00 69 Av ve LL 18 20 20 AI ai IN 01 08 08 D la 0 PH bl 25 AR e 0 M MG #3 92 CA 0 PS UL E Procedures Procedure DOS Code Location Performer Comment ECG 72007 [facility] PRASAD ROUTINE 7 FAMILY ECG HEALTH W/LEAST CTR 12 LDS W/I&[place] [address] [facility] TRIIODOTH 7 [facility] YRONINE [facility] [place] T3 T[place] [address] [place] [address] [facility] FREE 7 [facility] [place] [address] [facility] THYROID 7 [facility] STIMULATI [facility] HOLD[facility] NG HORMONE TSH PRESSURIZ 59405 [facility] GORE DEN ED/NONPRE 6 FAMILY SSURIZED [place] [address] [facility] THYROID 6 [facility] STIMUL[facility] [address] [facility] HOGGE TOMY DISCHARGE 5 FAMILY DAY HEALTH MANAGEMEN CTR T 30 MIN/< SBSQ 51839 [facility] 5 FAMILY JANENE CARE/DAY HEALTH 15 CTR MINUTES 04325 [facility] SHOWER DELIVERY 5 FAMILY [facility] ONLY HEALTH CTR LAPAROSCO 56967 [facility] SHOWER PY W/RMVL 5 [facility]ILY [facility] [place] [address] [facility] [place] SURG 5 [place] INC HEN PATHOLOGY GROSS&GERARDO ROSCOPIC EXAM EXTRACTIO [id number] MEAFLAVIOVIE MEADOWVIE N PRODUCT 5 W W OF [facility] CONCEPTIO MEDICAL MEDICAL N LOW CERVICAL OP OCCLUSION [id number] MEADOWVIE MEADOWVIE 5 W W BILATERAL [facility] MEDICAL MEDICAL FALLOPIAN TUBES OPEN POTASSIUM 15766 MEADOWVIE MEADOWVIE SERUM 5 W W PLASMA/WH [facility] OLE BLOOD MEDICAL MEDICAL CULTURE 66710 MEADOWVIE MEADOWVIE BACTERIAL 5 W W [facility] QUANTTATI MEDICAL MEDICAL VE COLONY COUNT URINE BLOOD 12962 MEADOWVIE MEADOWVIE COUNT 5 W W COMPLETE [facility] AUTO&AUTO MEDICAL MEDICAL DIFRNTL WBC COLLECTIO 23418 MEADOWVIE MEADOWVIE N VENOUS 5 W W BLOOD [facility] VENIPUNCT MEDICAL MEDICAL URE URNLS DIP 97248 MEADOWVIE MEADOWVIE 5 W W STICK/TAB REGIONAL REGIONAL LET MEDICAL MEDICAL REAGENT AUTO MICROSCOP Y US PREG 69951 [facility] UTERUS 5 MEDICAL LD AGA AFTER 1ST SERV TRIMEST FOUNDATIO N GESTATION 42031 [facility] BIOPHYSIC 5 MEDICAL LD AGA AL SERV PROFILE FOUNDATIO W/O N NON-STRES S TESTING CUL 49200 NANCY CRUZ PRSMPTV 5 W W PTHGNC REGIONAL REGIONAL ORGANISM MEDICAL MEDICAL SCRN W/COLONY ESTIMJ IADNA 33564 NANCY MEAWSATISH STREPTOCO 5 W W CCUS REGIONAL REGIONAL GROUP B MEDICAL [place] [address] LAB [facility] LAB ARMANDO FREE 5 [facility] [place] [address] LAB [facility] LAB [facility] THYROID 5 [facility] STIMULATI HOLDINGS HOLDINGS NG HORMONE TSH BLOOD 36785 JAMES [facility] [place] VY COUNT 5 FAMILY HEMOGLOBI HEALTH N CTR GLUCOSE 95530 [facility] POST 5 [facility] [place] [address] LAB [facility] LAB ARM[facility]O TRIIODOTH 5 [facility] YRONINE HOLDINGS HOLDINGS T3 FREE URNLS DIP 76673 JAMES CO JAMES CO 5 FAMILY FAMILY STICK/TAB HEALTH HEALTH LET RGNT CTR CTR NON-AUTO W/O MICRSCP URNLS DIP 87705 JAMES CO HOGGE TOMY 5 PRIMARY STICK/TAB CARE LET RGNT CENTER NON-AUTO W/O MICRSCP US PREG 58836 [place] MATHEW UTERUS 5 MEDICAL DOMINIQUE REAL TIME SERV F/U FOUNDATIO TRNSABDL N PER FETUS URNLS DIP 52394 JAMES ABARCA 5 PRIMARY MAURICIO STICK/TAB CARE LET RGNT CENTER NON-AUTO W/O MICRSCP URNLS DIP 29402 JAMES ABARCA 5 PRIMARY MAURICIO STICK/TAB CARE LET RGNT CENTER NON-AUTO W/O MICRSCP COLLECTIO 76484 JAMES ABARCA N VENOUS 5 PRIMARY MAURICIO BLOOD CARE VENIPUNCT [place] [address] [place] [facility] 5 MEDICAL CARLEE UTERUS SERV LIMITED FOUNDATIO 1/> [place] [address] LAB ARMANDO LAB ARMANDO THYROID 5 [facility] STIMULATI HOLDINGS HOLDINGS NG HORMONE TSH US PREG 01547 JAMES HIGH SURJIT UTERUS 5 PRIMARY JOSE W/DETAIL CARE CENTER EMILIA 1ST GESTATION URNLS DIP 74045 JAMES CO SURJIT 5 PRIMARY JOSE STICK/TAB CARE LET RGNT CENTER NON-AUTO W/O MICRSCP US PREG 82212 [place] CRITCHFIE UTERUS 5 MEDICAL LD AGA REAL TIME SERV W/IMAGE FOUNDATIO DCMTN [place] [address] [place] [facility] UTERUS 5 MEDICAL LD AGA AFTER 1ST SERV TRIMEST FOUNDATIO 1/ N GESTATION URNLS DIP 02995 JAMES CO HOGGE TOMY 5 PRIMARY STICK/TAB CARE LET RGNT CENTER NON-AUTO W/O MICRSCP ALPHA-FET 99509 LAB COR LAB COR OPROTEIN 5 [facility] SERUM HOLDING HOLDING URNLS DIP 83592 JAMES CO HOGGE TOMY 5 PRIMARY STICK/TAB CARE LET RGNT CENTER NON-AUTO W/O MICRSCP US PREG 93685 JAMES CO HOGGE TOMY UTERUS 5 PRIMARY REAL TIME CARE F/U CENTER TRNSABDL PER FETUS COLLECTIO 16832 JAMES CO SP TOMY N VENOUS 5 PRIMARY BLOOD CARE VENIPUNCT CENTER URE US PREG 84019 JAMES CO LOMAX VY UTERUS 5 PRIMARY REAL TIME CARE F/U CENTER TRNSABDL PER FETUS TOBACCO 16029 JAMES CO LOMAX VY USE 5 PRIMARY CESSATION CARE CENTER INTERMEDI ATE 3-10 MINUTES URNLS DIP 67358 JAMES CO LOMAX VY 5 PRIMARY STICK/TAB CARE LET RGNT CENTER NON-AUTO W/O MICRSCP IADNA 21963 LAB ARMAND[facility] LAB ARMANDO NEISSERIA 5 [facility] HOLDINGS HOLDINGS GONORRHOE AE AMPLIFIED PROBE TQ IADNA 79378 LAB [facility] LAB ARMANDO KIKI 5 [facility] SPECIES HOLDINGS HOLDINGS AMPLIFIED PROBE TQ IADNA NOS 06699 LAB ARM[facility]O LAB ARMANDO 5 [facility] AMPLIFIED HOLDINGS HOLDINGS PROBE TQ EACH ORGANISM IADNA 40218 LAB ARM[facility] LAB ARMANDO TRICHOMON 5 [facility] HOLDINGS HOLDINGS VAGINALIS AMPLIFIED PROBE TECH IADNA 71840 LAB ARM[facility] LAB ARMANDO CHLAMYDIA 5 [facility] HOLDINGS HOLDINGS TRACHOMAT IS AMPLIFIED PROBE TQ GONADOTRO 52631 [facility] PIN 5 Y Y [facility]IC [facility] QUANTITAT BRYAN 21042 [facility] -ASSOCIAT 5 Y Y ED PLASMA [facility] [place] [address] [place] O'JULIETH NUCHAL 5 MEDICAL SARAI TRANSLUCE SERV NCY 1ST FOUNDATIO GESTATION N URNLS DIP 41526 JAMES CO GANSTER 5 PRIMARY GLORIA STICK/TAB CARE LET RGNT CENTER NON-AUTO W/O MICRSCP IADNA 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 NEISSERIA 5 Y ARMANDO OF Y ARMANDO OF [facility] GONORRHOE H H AE AMPLIFIED PROBE TQ CYTP 94886 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 CERVICAL/ 5 Y ARMANDO OF Y ARMANDO OF VAGINAL [facility] REQ H H INTERP PHYSICIAN IADNA 81959 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 CHLAMYDIA 5 Y ARMANDO OF Y ARMANDO OF [facility] TRACHOMAT H H IS AMPLIFIED PROBE TQ IADNA 89570 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 HUMAN 5 Y ARMANDO OF Y ARMANDO OF [place] [facility] VIRUS H H HIGH-RISK TYPES CYTP C/V 62582 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 AUTO THIN 5 Y ARMANDO OF Y ARMANDO OF LYR [facility] PREPJ SCR [place] G[address] LAB ARM[facility] LAB ARMANDO BENZODIAZ 5 [facility] [place] LAB ARM[facility] LAB ARMANDO METHADONE 5 [facility] HOLDINGS HOLDINGS DRUG SCR G0434 LAB ARM[facility] LAB ARMANDO NOT 5 [facility] CHROMATOG HOLDINGS HOLDINGS RAPHIC; ANY NUMBER PT ENC OPIATE G6056 LAB ARM[facility] LAB ARMANDO DRUG AND 5 [facility] METABOLIT HOLDINGS HOLDINGS ES EACH PROCEDURE CREATININ 79296 LAB ARMANDO LAB ARMANDO E OTHER 5 [facility] S[place] LAB ARMANDO LAB ARMANDO ALCOHOL; 5 [facility] ANY HOLDINGS HOLDINGS [place]IM[place] EX[place] G[address] LAB ARM[facility]O LAB ARMANDO AMPHETAMI 5 [facility] NE OR HOLDINGS [place] LAB ARM[facility] LAB ARMANDO COCAINE 5 [facility] OR HOLDINGS HOLDINGS METABOLIT E URINE 14139 JAMES CO LOMAX VY 5 PRIMARY TEST CARE VISUAL CENTER COLOR CMPRSN METHS SMR PRIM 67959 MEADOWVIE MEADOWVIE SRC 2 W W GRAM/GIEM [facility] SA STAIN MEDICAL MEDICAL BCT FUNGI/KAVITHA L IADNA 61648 MEADOWVIE MEADOWVIE CHLAMYDIA 2 W W [facility] TRACHOMAT MEDICAL MEDICAL IS AMPLIFIED PROBE TQ SMR PRIM 87131 MEADOWVIE MEADOWVIE SRC WET 2 W W [facility] NFCT AGT MEDICAL MEDICAL CUL BACT 65747 MEADOWVIE MEADOWVIE XCPT 2 W W URINE [facility] BLOOD/STO MEDICAL MEDICAL OL AEROBIC ISOL CULTURE 19242 MEADOWVIE MEADOWVIE BACTERIAL 2 W W [facility] QUANTTATI MEDICAL MEDICAL VE COLONY COUNT URINE URINE 75557 MEADOWVIE MEADOWVIE 2 W W TEST [facility] VISUAL MEDICAL MEDICAL COLOR CMPRSN METHS URNLS DIP 02949 MEADOWVIE MEADOWVIE 2 W W STICK/TAB [facility] LET MEDICAL MEDICAL REAGENT AUTO MICROSCOP Y URNLS DIP 74231 MEADOWVIE MEADOWVIE 2 W W STICK/TAB [facility] LET MEDICAL MEDICAL [place] [address] MEADOWVIE MEADOWVIE AMYLASE 2 W W [facility] MEDICAL MEDICAL COMPREHEN 22156 MEADOWVIE MEADOWVIE SIVE 2 W W METABOLIC [facility] PANEL MEDICAL MEDICAL THER 46357 MEADOWVIE MEADOWVIE PROPH/DX 2 W W NJX IV [facility] PUSH MEDICAL MEDICAL SINGLE/1S T SBST/DRUG INJECTION J2405 MEADOWVIE MEADOWVIE 2 W W ONDANSETR [facility] ON HCL MEDICAL MEDICAL PER 1 MG GROUND A0425 [facility] MILEAGE 2 ANAT CO ANAT CO PER STATUTE AMBULANCE AMBULANCE MILE AMBULANCE A0429 [facility] SERVICE 2 ANAT CO ANAT CO BLS EMERGENCY AMBULANCE AMBULANCE TRANSPORT THERAPEUT 01076 MEADOWVIE MEADOWVIE IC 2 W W INJECTION REGIONAL REGIONAL [place] [address] MEADOWVIE MEADOWVIE INFUSION 2 W W HYDRATION [facility] MEDICAL MEDICAL ADDITIONA L HOUR COLLECTIO 70405 MEADOWVIE MEADOWVIE N VENOUS 2 W W BLOOD [facility] VENIPUNCT MEDICAL MEDICAL URE URINE 62394 MEADOWVIE MEADOWVIE 2 W W TEST [facility] VISUAL [facility] MEDICAL COLOR CMPRSN METHS BLOOD 48605 MEADOWVIE MEADOWVIE COUNT 2 W W COMPLETE [facility] AUTO&AUTO MEDICAL MEDICAL DIFRNTL WBC RADEX ABD 39352 [facility] COMPL 2 EIDER EVELYNE AQT ABD RADIOLOGY W/S/E/D ASSOCIAT VIEWS 1 VIEW CH INJECTION J1885 MEADOWVIE MEADOWVIE 2 W W KETOROLAC [facility] TROMETHAM IN[place] 15 [place] [address] MEADOWVIE MEADOWVIE LIPASE 2 W W [facility] MEDICAL SBSQ 95053 [facility] 2 NANETTE NANETTE CARE/DAY 15 MINUTES ANESTHESI 31183 VERNON JUNIOR A 2 ANT ANT DELIVERY ONLY 47801 JSEÚS ELIAN JESÚS ELIAN DELIVERY 2 ONLY OTHER 5459 MEADOWVIE MEADOWVIE LYSIS OF 2 W W PERITONEA [facility]IONAL [facility] L MEDICAL MEDICAL ADHESIONS LOW 741 MEADOWVIE MEADOWVIE CERVICAL 2 W W [facility] SECTION MEDICAL MEDICAL BLOOD 23484 MEADOWVIE MEADOWVIE COUNT 2 W W COMPLETE [facility] REGIONAL AUTO&AUTO MEDICAL MEDICAL DIFRNTL WBC 73350 MEADOWVIE MEADOWVIE LUNG 2 W W MATURITY [facility]AL [facility] LAMELLAR MEDICAL MEDICAL BODY DENSITY POTASSIUM 44691 MEADOWVIE MEADOWVIE SERUM 2 W W PLASMA/WH REGIONAL REGIONAL OLE BLOOD MEDICAL MEDICAL 36226 MEADOWVIE MEADOWVIE NONSTRESS 2 W W TEST [facility] MEDICAL MEDICAL COLLECTIO 21452 NANCY CRUZ N VENOUS 2 W W BLOOD [facility] [place] [address] NANCY CRUZ GUIDANCE 2 W W AMNIOCENT [facility] ESIS [facility] MEDICAL MEDICAL S&I AMNIOCENT 73959 SHOWER SHOWER ESIS 2 BLANKENSHIP BLANKENSHIP DIAGNOSIC URNLS DIP 14144 SHOWER SHOWER 2 BLANKENSHIP BLANKENSHIP STICK/TAB LET RGNT NON-AUTO W/O MICRSCP CUL 71212 NANCY CRUZ PRSMPTV 2 W W [facility] MEDICAL SCRN W/COLONY ESTIMJ 61449 BRENNON BRENNON NONSTRESS 2 NANETTE NANETTE TEST URNLS DIP 10187 BRENNON BRENNON 2 NANETTE NANETTE STICK/TAB LET RGNT NON-AUTO W/O MICRSCP URNLS DIP 87058 LATASHA PAGAN 2 DON DON STICK/TAB LET RGNT NON-AUTO W/O MICRSCP US PREG 49210 LATASHA PAGAN UTERUS 2 DON DON REAL TIME F/U TRNSABDL PER FETUS URNLS DIP 78616 LATASHA PAGAN 2 DON DON STICK/TAB LET RGNT NON-AUTO W/O MICRSCP URNLS DIP 34890 BRENNON BRENNON 2 NANETTE NANETTE STICK/TAB LET RGNT NON-AUTO W/O MICRSCP BLOOD 19486 BRENNON BRENNON COUNT 2 NANETTE NANETTE HEMOGLOBI N URNLS DIP 83248 SHOWER SHOWER 2 BLANKENSHIP BLANKENSHIP STICK/TAB LET RGNT NON-AUTO W/O MICRSCP COLLECTIO 77241 SHOWER SHOWER N VENOUS 2 BLANKENSHIP BLANKENSHIP BLOOD VENIPUNCT URE GLUCOSE 93229 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 TOLERANCE 2 Y & Y & TEST GTT BIODIAGNO BIODIAGNO 3 [place] [address] 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 THYROID 2 Y & Y & STIMULATI BIODIAGNO BIODIAGNO NG STICS STICS HORMONE TSH COLLECTIO 30808 JESÚS ELIAN JESÚS ELIAN N VENOUS 2 BLOOD VENIPUNCT URE URNLS DIP 09367 JESÚS ELIAN JESÚS ELIAN 2 STICK/TAB LET RGNT NON-AUTO W/O MICRSCP OPHTH 30791 GIANA FARIA MEDICAL 2 JIM JIM XM&EVAL COMPRE NEW PT 1/> VST DETERMINA 66235 GIANA FARIA TION 2 JIM [facility] REFRACTIV E STATE COLLECTIO 35525 JESÚS ELIAN JESÚS ELIAN N VENOUS 2 BLOOD VENIPUNCT [place]RE [place] 66896 JESÚS ELIAN JESÚS ELIAN UTERUS 2 REAL TIME F/U TRNSABDL PER FETUS US PREG 52676 JESÚS ELIAN JESÚS ELIAN UTERUS 2 REAL TIME W/IMAGE DCMTN TRANSVAG URNLS DIP 36081 JESÚS ELIAN JESÚS ELIAN 2 STICK/TAB LET RGNT NON-AUTO W/[place] [address] 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 THYROID 2 Y & Y & STIMULATI BIODIAGNO BIODIAGNO NG STICS STICS HORMONE TSH URNLS DIP 45823 BRENNON BRENNON 2 NANETTE NANETTE STICK/TAB LET RGNT NON-AUTO W/O MICRSCP US PREG 81999 [facility] UTERUS 2 CARLEE CARLEE REAL TIME F/U TRNSABDL PER FETUS [facility] G0378 [facility] OBSERVATI 2 W W ON [facility] MEDICAL [place] 62150 [facility] UTERUS 2 CARLEE CARLEE REAL TIME F/U TRNSABDL PER FETUS URNLS DIP 43489 JESÚS ELIAN JESÚS ELIAN 2 STICK/TAB LET RGNT NON-AUTO W/O MICRSCP US PREG 45804 O'JULIETH O'JULIETH UTERUS 2 SARAI SARAI W/DETAIL EMILIA 1ST GESTATION URNLS DIP 15819 LATASHA PAGAN 2 DON DON STICK/TAB LET RGNT NON-AUTO W/O MICRSCP URNLS DIP 63113 SHOWER SHOWER 2 BLANKENSHIP BLANKENSHIP STICK/TAB LET RGNT NON-AUTO W/O MICRSCP COLLECTIO 61537 SHOWER SHOWER N VENOUS 2 BLANKENSHIP BLANKENSHIP BLOOD VENIPUNCT URE CYTP C/V 74453 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 AUTO THIN 2 Y & Y & LYR BIODIAGNO BIODIAGNO PREPJ SCR STICS STICS MNL RESCR PHYS IADNA 47316 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 NEISSERIA 2 Y & Y & BIODIAGNO BIODIAGNO GONORRHOE STICS STICS [place] [address] 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 THYROID 2 Y & Y & STIMULATI BIODIAGNO BIODIAGNO [place] [address] 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 THYROXINE 2 Y & Y & TOTAL BIODIAGNO BIODIAGNO STICS STICS IADNA 80517 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 CHLAMYDIA 2 Y & Y & BIODIAGNO BIODIAGNO TRACHOMAT STICS STICS IS AMPLIFIED PROBE TQ MOLECULAR 41911 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 DX AMP 1 Y & Y & TARGET BIODIAGNO BIODIAGNO MULTIPLEX STICS STICS EA ADDL SEQ MOLEC 13560 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 SEP&ID HI 1 Y & Y & RESOLU BIODIAGNO BIODIAGNO TQ EACH STICS STICS NUCLEIC ACID PREP MOLEC 76486 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 ISOL/XTRJ 1 Y & Y & HP BIODIAGNO BIODIAGNO NUCLEIC STICS STICS ACID EA TYPE MOLECULAR 94010 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 1 Y & Y & DIAGNOSTI BIODIAGNO BIODIAGNO CS STICS STICS INTERPRET ATION & REPORT MUTATION 37906 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 ID 1 Y & Y & ENZYMATIC BIODIAGNO BIODIAGNO STICS STICS LIG/PRIME R XTN 1 SGM EA MOLECULAR 30550 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 DX AMP 1 Y & Y & TARGET BIODIAGNO BIODIAGNO MULTIPLEX STICS STICS 1ST 2 SEQ COLLECTIO 71257 SHOWER SHOWER N VENOUS 1 BLANKENSHIP BLANKENSHIP BLOOD VENIPUNCT URE URNLS DIP 59521 SHOWER SHOWER 1 BLANKENSHIP BLANKENSHIP STICK/TAB LET RGNT NON-AUTO W/O MICRSCP US PREG 75440 SHOWER SHOWER UTERUS 1 BLANKENSHIP BLANKENSHIP REAL TIME W/IMAGE DCMTN TRANSVAG THERAPEUT 63603 MEADOWVIE MEADOWVIE IC 1 W W PROPHYLAC REGIONAL REGIONAL TIC/DX MEDICAL MEDICAL INJECTION SUBQ/IM INCISION 22950 MEADOWVIE MEADOWVIE & 1 W W DRAINAGE REGIONAL [facility] ABSCESS MEDICAL MEDICAL SIMPLE/SI NGLE INCISION 96789 WAGNER PAGAN & 1 EMERGENCY [place] [facility] ABSCESS COMPLICAT ED/MULTIP LE SUSCEPTIB 84500 MEADOWVIE MEADOWVIE ILITY 1 W W STUDY [facility] ANTIMICRO MEDICAL MEDICAL BIAL DISK METHOD SMR PRIM 17259 MEADOWVIE MEADOWVIE SRC 1 W W GRAM/GIEM [facility] SA STAIN MEDICAL MEDICAL BCT FUNGI/KAVITHA L SUSCEPTIB 18448 MEADOWVIE MEADOWVIE LTY STDY 1 W W ANTIMICRB [facility] IA MEDICAL MEDICAL MICRO/AGA R DILUTJ CUL BACT 91590 MEADOWVIE MEADOWVIE XCPT 1 W W URINE [facility] BLOOD/STO MEDICAL MEDICAL OL AEROBIC ISOL CUL BACT 38230 MEADOWVIE MEADOWVIE AEROBIC 1 W W ADDL [facility] METHS MEDICAL [place] [address] MEADOWVIE MEADOWVIE IRON 1 W W [facility] BLOOD 35600 MEADOWVIE MEADOWVIE COUNT 1 W W COMPLETE [facility] AUTO&AUTO [place]ICAL [place] [address] MEADOWVIE MEADOWVIE TRIIODOTH 1 W W YRONINE [facility] T3 FREE MEDICAL MEDICAL US SOFT 20725 [place] FERNANDO TISSUE 1 [facility] & ENDOCRINO NECK REAL [place] [address] MEADOWVIE MEADOWVIE THYROID 1 W W STIMULATI [facility] [place] [address] MEADOWVIE MEADOWVIE FERRITIN 1 W W [facility] [place] [address] MEADOWVIE MEADOWVIE FREE 1 W W THYROXINE [facility] MEDICAL COLLECTIO 71211 MEADOWVIE MEADOWVIE N VENOUS 1 W W BLOOD [facility] VENIPUNCT MEDICAL MEDICAL URE IRON 71558 MEADOWVIE MEADOWVIE BINDING 1 W W CAPACITY [facility] URINE 54150 MEADOWVIE MEADOWVIE 1 W W TEST [facility] COLOR CMPRSN METHS GONADOTRO 19391 MEADOWSATISH MEADOWVIE PIN 1 W W [facility] QUANTITAT BRYAN COLLECTIO 27329 MEADOWVIE MEADOWVIE N VENOUS 1 W W BLOOD [facility] 57976 MEADOWVIE MEADOWVIE N VENOUS 1 W W BLOOD [facility] MEDICAL URE GONADOTRO 41269 MEADOWSATISH MEADOWVIE PIN 1 W W [facility] QUANTITAT BRYAN GONADOTRO 26080 MEADOWVIE MEADOWVIE PIN 1 W W [facility] QUANTITAT BRYAN COLLECTIO 45357 MEADOWVIE MEADOWVIE N VENOUS 1 W W BLOOD [facility] MEDICAL URE COLLECTIO 10670 MEADOWVIE MEADOWVIE N VENOUS 1 W W BLOOD [facility] MEDICAL URE GONADOTRO 52025 MEADOWVIE MEADOWVIE PIN 1 W W [facility] QUANTITAT BRYAN BLOOD 55470 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 COUNT 1 Y & Y & COMPLETE BIODIAGNO BIODIAGNO AUTO&AUTO STICS STICS DIFRNTL WBC COLLECTIO 63863 JAMES FOFANAER N VENOUS 1 PRIMARY GLORIA BLOOD CARE VENIPUNCT CENTER URE URNLS DIP 32280 JAMES CO GANSTER 1 PRIMARY GLORIA STICK/TAB CARE LET RGNT CENTER NON-AUTO W/O MICRSCP US PREG 24370 JAMES HIGH GANBIENVENIDO UTERUS 1 PRIMARY GLORIA REAL TIME CARE W/IMAGE CENTER DCMTN TRANSVAG URNLS DIP 13048 JAMES HIGH YOUNG HÉCTOR 1 PRIMARY STICK/TAB CARE LET RGNT CENTER NON-AUTO W/O MICRSCP COLLECTIO 24927 MEADOWVIE MEADOWVIE N VENOUS 1 W W BLOOD [facility] VENIPUNCT MEDICAL MEDICAL URE BLOOD 31254 NANCY MEADOWVIE COUNT 1 W W COMPLETE [facility] AUTO&AUTO MEDICAL MEDICAL DIFRNTL WBC BLOOD 89599 NANCY SHUKLAWSATISH TYPING 1 W W SEROLOGIC [facility] RH (D) MEDICAL MEDICAL IADNA 61025 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 CHLAMYDIA 1 Y & Y & BIODIAGNO BIODIAGNO TRACHOMAT STICS STICS IS AMPLIFIED PROBE TQ GONADOTRO 92169 NANCY CRUZ PIN 1 W W [facility] MEDICAL QUANTITAT BRYAN CYTP C/V 25478 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 AUTO THIN 1 Y & Y & LYR BIODIAGNO BIODIAGNO PREPJ SCR STICS STICS MNL RESCR PHYS BLOOD 19732 NANCY CRUZ TYPING 1 W W SEROLOGIC [facility] ABO [facility] MEDICAL IADNA 62702 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 NEISSERIA 1 Y & Y & BIODIAGNO BIODIAGNO GONORRHOE STICS STICS AE AMPLIFIED PROBE TQ URNLS DIP 52374 JAMES CO SHOWER 1 PRIMARY BLANKENSHIP STICK/TAB CARE LET RGNT CENTER NON-AUTO W/O MICRSCP US PREG 39760 JAMES HIGH SHOWER UTERUS 1 PRIMARY BLANKENSHIP REAL TIME CARE W/IMAGE CENTER DCMTN TRANSVAG URNLS DIP 37292 JAMES HIGH JESÚS ELIAN 1 PRIMARY STICK/TAB CARE LET RGNT CENTER NON-AUTO W/O MICRSCP COLLECTIO 17199 JAMES CO JAMES CO N VENOUS 1 PRIMARY PRIMARY BLOOD CARE CARE VENIPUNCT CENTER CENTER URE URINE 05585 JAMES HIGH SHOWER 1 PRIMARY BLANKENSHIP TEST CARE VISUAL CENTER COLOR CMPRSN METHS CULTURE 00181 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 BACTERIAL 0 Y & Y & BIODIAGNO BIODIAGNO QUANTTATI STICS STICS VE COLONY COUNT URINE URNLS DIP 01490 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 0 Y & Y & STICK/TAB BIODIAGNO BIODIAGNO LET RGNT STICS STICS AUT[place] [address] JAMES HARDEN TRANSVAGI 0 PRIMARY [facility] IRON 01667 MEADOWVIE MEADOWVIE BINDING 0 W W CAPACITY [facility] [place] [address] MEADOWVIE MEADOWVIE TRIIODOTH 0 W W YRONINE [facility] MEDICAL DEHYDROEP 73132 MEADOWVIE MEADOWVIE IANDROSTE 0 W W [facility] MEDICAL COLLECTIO 36480 MEADOWVIE MEADOWVIE N VENOUS 0 W W BLOOD [facility] VENIPUNCT [facility] [place] [address] MEADOWVIE MEADOWVIE FOLIC 0 W W ACID [facility] [place] [address] MEADOWVIE MEADOWVIE IRON 0 W W [facility] BLOOD 74846 MEADOWVIE MEADOWVIE COUNT 0 W W COMPLETE [facility] AUTO&AUTO [place] [address] MEADOWVIE MEADOWVIE FREE 0 W W THYROXINE [facility] [place] [address] MEADOWVIE MEADOWVIE THYROID 0 W W STIMULATI [facility] MEDICAL MEDICAL HORMONE TSH 25 62744 MEADOWVIE MEADOWVIE HYDROXY 0 W W INCLUDES [facility] FRACTIONS MEDICAL MEDICAL IF PERFORMED CYANOCOBA 44059 MEADOWVIE MEADOWVIE KOSTA 0 W W VITAMIN [facility] B-12 [place] [address] MEADOWVIE MEADOWVIE FERRITIN 0 W W [facility] [place] [address] MEADOWVIE MEADOWVIE THYROID 0 W W STIMULATI [facility] [place] [address] MEADOWVIE MEADOWVIE FREE 0 W W THYROXINE [facility] CENTER COLLECTIO 32274 MEADOWVIE MEADOWVIE N VENOUS 0 W W BLOOD [facility] [place] [address] MEADOWVIE MEADOWVIE TRIIODOTH 0 W W YRONINE [facility] T3 [facility] CENTER 18277 [facility] EXTREMITY 9 NON-VASC DIAGNOSTI DIAGNOSTI C CENTER, C CENTER, REAL-TIME [facility] IMG CYTP 07717 [facility] CERV/VAG 9 [facility] AUTO THIN LAYER PREP MNL SCREEN IADNA 77106 [facility] CHLAMYDIA 9 [facility] TRACHOMAT IS AMPLIFIED PROBE TQ IADNA 12683 [facility] NEISSERIA 9 [facility] GONORRHOE AE AMPLIFIED PROBE TQ MEDICAL 05214 DHS/CO ANAT CO NUTRITION 9 [facility] ASSMT&IVN BANK ACCT T TJ INDIV EACH 15 [place] [address] LAB ARMANDO LAB ARMANDO TRIIODOTH 9 [employer]IC [employer]ING T3 FREE COLLECTIO 91575 [place] ABDULLAHI, N VENOUS 9 ANGELA Haney BLOOD ENDOCRINO [place] [address] LAB ARMANDO LAB ARMANDO FREE 9 AMERIC AMER[employer] [place] [address] LAB ARMANDO LAB ARMANDO THYROID 9 AMERIC AMER[employer] STIMULATI [place] [address] LAB ARMANDO LAB ARMANDO SOMATOMED 9 [employer] [place] [address] LAB ARMANDO LAB ARMANDO FREE 9 [employer] [place] [place] [address] LAB ARMANDO LAB ARMANDO THYROID 9 [employer] STIMULATI HOLDING HOLDING NG HORMONE TSH COLLECTIO 03289 [place] ABDULLAHI, N VENOUS 9 ANGELA Haney BLOOD ENDOCRINO VENIPUNCT LOGY, INC URE US SOFT 05520 [place] FERNANDO TISSUE 9 ANGELA Haney HEAD & ENDOCRINO NECK REAL LOGY, INC TIME IMGE DOCM INSERTION 00753 [place] ESTELA, 8 MEDICAL THANIA C INTRAUTER SERV INE FOUNDATIO DEVICE IUD ANESTHESI 62940 [place] COLCLOUGH A 8 MEDICAL , GAMALIEL SERV W DELIVERY FOUNDATIO ONLY 05446 GILMER GARABEDIA DELIVERY 8 MEDICAL N, ONLY SERV ANNA MARIE W/POSTPAR [place] [address] GILMER [place], RON SURG 8 MEDICAL Y PATHOLOGY SERV FOUNDATIO GROSS&GERARDO ROSCOPIC EXAM CLASSICAL 740 [facility] 8 Y Y [facility] US PREG 10-200 66101 [place] QUINCY, UTERUS 8 MEDICAL KELBY F REAL TIME SERV F/U FOUNDATIO TRNSABDL PER FETUS SBSQ 10-20-200 20225 [place] [facility] 8 MEDICAL KELBY F CARE/DAY SERV 35 FOUNDATIO MINUTES 10-20-200 55377 [place], NONSTRESS 8 MEDICAL FLORES C TEST SERV FOUNDATIO 10-19-200 88036 [place] MARYSOL, NONSTRESS 8 MEDICAL JERI B TEST SERV FOUNDATIO SBSQ 10-19-200 [address] [place] [address] MEDICAL DIPAK CARE/DAY SERV Y 35 FOUNDATIO MINUTES SBSQ 10-18-[id number] [place] [address], [place] [address] MEDICAL DIPAK CARE/DAY SERV Y 35 FOUNDATIO MINUTES SBSQ 10-17-[id number] [place] [address], [place] [address] MEDICAL DIPAK CARE/DAY SERV Y 35 FOUNDATIO MINUTES SBSQ 10-16-[id number] [place] [address], [place] [address] MEDICAL DIPAK CARE/DAY SERV Y 35 FOUNDATIO MINUTES SBSQ 10-15-[id number] [place] [address], [place] [address] MEDICAL DIPAK CARE/DAY SERV Y 35 FOUNDATIO MINUTES SBSQ 10-14-[id number] [place] [address], [facility] 8 MEDICAL DIPAK CARE/DAY SERV Y 35 FOUNDATIO MINUTES 10-14-200 78857 [place] GARABEDIA NONSTRESS 8 MEDICAL N, TEST SERV ANNA MARIE FOUNDATIO 10-13-200 33905 [place] NONSTRESS 8 MEDICAL N, TEST SERV ANNA MARIE FOUNDATIO SBSQ 10-13-[id number] [place] [address] 8 MEDICAL DIPAK CARE/DAY SERV Y 35 FOUNDATIO MINUTES SBSQ 10-12-200 [address] [place] [address] MEDICAL KELBY F CARE/DAY SERV 35 FOUNDATIO MINUTES 10-12-200 80164 [place] [facility] MEDICAL KELBY F TEST SERV FOUNDATIO SBSQ 10-11-[id number] [place] [address] 8 MEDICAL KELBY F CARE/DAY SERV 35 FOUNDATIO MINUTES SBSQ 10-10-200 [address] [place] [address] MEDICAL [place], LOREN CARE/DAY SERV 35 FOUNDATIO MINUTES 10-10-200 76961 [place] PONCE, NONSTRESS 8 MEDICAL MERISSA M TEST SERV FOUNDATIO SBSQ 06800 [facility] 8 MEDICAL [place], [place] CARE/DAY SERV 35 FOUNDATIO MINUTES SBSQ 56937 [facility] 8 MEDICAL [place], [place] CARE/DAY SERV 35 FOUNDATIO MINUTES [address] [place] PANG, NONSTRESS 8 MEDICAL MARY J TEST SERV FOUNDATIO SBSQ 80230 [facility] 8 MEDICAL [place], [place] CARE/DAY SERV 35 FOUNDATIO MINUTES SBSQ 52306 [facility] 8 MEDICAL [place], [place] CARE/DAY SERV 35 FOUNDATIO MINUTES SBSQ 48809 [facility] 8 [facility] E CARE/DAY SERV 35 FOUNDATIO MINUTES SBSQ 48802 [facility] 8 MEDICAL KELBY F CARE/DAY SERV 35 FOUNDATIO MINUTES [address] [place] PONCE, NONSTRESS 8 MEDICAL MERISSA M TEST SERV FOUNDATIO SBSQ 90033 [facility] 8 MEDICAL KELBY F CARE/DAY SERV 35 FOUNDATIO MINUTES URNLS DIP 51424 [facility] 8 Y Y STICK/TAB [facility] LET RGNT AUTO W/O MICROSCOP Y 86863 [facility] 8 Y Y G LABOR [facility] [place] [address] [facility] 8 Y Y UTERUS [facility] LIMITED 1/> [place] [address] [facility], 8 MEDICAL KELBY F UTERUS SERV LIMITED FOUNDATIO 1/> FETUSES URNLS DIP 66280 JAMES PEREZ, 8 PRIMARY SUKHDEV J STICK/TAB CARE LET RGNT CENTERINC NON-AUTO W/O MICRSCP URNLS DIP 01915 JAMES AMAYA, 8 PRIMARY DIOGO L STICK/TAB CARE LET RGNT CENTERINC NON-AUTO W/O MICRSCP DOPPLER 93887 [facility] 8 MEDICAL [place], [place] SERV [place]PECT[place]AL [place] [address] [facility] UTERUS 8 MEDICAL [place], [place] W/DETAIL SERV FOUNDATIO EMILIA 1ST GESTATION ALPHA-FET 92368 [facility]PROTE[facility] 8 DIAGNOSTI DIAGNOSTI SERUM , INC. , INC. CHEMILUMI 11952 [facility] NESCENT 8 DIAGNOSTI DIAGNOSTI [place] , [place] , [place] [id number] [facility] ESTRIOL 8 DIAGNOSTI DIAGNOSTI , INC. , INC. ALPHA-FET [id number] [facility] OPROTEIN 8 DIAGNOSTI DIAGNOSTI SERUM , INC. , INC. URNLS DIP 88293 JAMES ESPINOSA, 8 PRIMARY ARMEN W STICK/TAB CARE LET RGNT CENTERINC NON-AUTO W/O MICRSCP COLLECTIO 17770 JAMES ESPINOSA N VENOUS 8 PRIMARY ARMEN W BLOOD CARE VENIPUNCT CENTERINC URE IADNA 20094 [facility] CHLAMYDIA 8 DIAGNOSTI DIAGNOSTI CS IN CS IN TRACHOMAT [place] [address] [facility]ST 8 DIAGNOSTI DIAGNOSTI , INC. , INC. GONADOTRO 46581 [facility] PIN 8 DIAGNOSTI DIAGNOSTI CHORIONIC , INC. , INC. QUANTITAT BRYAN CYTP C/V 72709 [facility] AUTO THIN 8 DIAGNOSTI DIAGNOSTI LYR CS IN CS IN PREPJ SCR MNL RESCR PHYS IADNA 40058 [facility] NEISSERIA 8 DIAGNOSTI DIAGNOSTI CS IN CS IN GONORRHOE AE AMPLIFIED PROBE TQ COLLECTIO 45877 JAMES PEREZ N VENOUS 8 PRIMARY SUKHDEV J BLOOD CARE VENIPUNCT CENTERINC URE URNLS DIP 79627 Trung MARIEE PRIMARY SUKHDEV J STICK/TAB CARE LET RGNT CENTERINC NON-AUTO W/O MICRSCP US PREG 00825 JAMES PAGAN, UTERUS 8 PRIMARY [place]LEY R AFTER 1ST CARE TRIMEST CENTERINC GESTATION COLLECTIO 88227 NANCY CRUZ N VENOUS 8 W W BLOOD [facility] CENTER US PELVIC 22735 NANCY CRUZ 8 W W NONOBSTET [facility] CENTER IMAGE COMPLETE BLOOD 51206 MEAWSATISH MEADOWVIE TYPING 8 W W SEROLOGIC [facility] CENTER GONADOTRO 07662 MEADOWVIE MEADOWVIE PIN 8 W W CHORIONIC [facility] MEDICAL MEDICAL QUANTITAT CENTER CENTER BRYAN BLOOD 76678 MEAWSATISH MEADOWVIE TYPING 8 W W SEROLOGIC [facility] RH (D) [facility] CENTER BASIC 04130 MEADOWVIE MEADOWVIE METABOLIC 8 W W PANEL [facility] CALCIUM MEDICAL MEDICAL TOTAL CENTER CENTER BLOOD 06035 MEADOWVIE MEADOWVIE COUNT 8 W W [facility] AUTO&AUTO MEDICAL MEDICAL DIFRNTL CENTER CENTER WBC Encounters Encounter Start End Date Code Location Performer Type Date OFFICE 03304 [facility] MAR OUTPATIEN 7 7 FAMILY T VISIT HEALTH 15 CTR MINUTES OFFICE 82148 PUBLIC OUTPATIEN 7 7 HEALTH T VISIT DHS/CO 15 HEALTH MINUTES OFFICE 29449 [facility] PRASAD OUTPATIEN 7 7 FAMILY T VISIT HEALTH 25 CTR MINUTES OFFICE 28419 [facility] MAR OUTPATIEN 6 6 FAMILY JAM T VISIT HEALTH 15 CTR MINUTES OFFICE 54793 [facility] DAMIONE DEN OUTPATIEN 6 6 FAMILY T VISIT HEALTH 15 CTR MINUTES OFFICE 02107 [facility] MAR OUTPATIEN 6 6 FAMILY JAM T VISIT HEALTH 15 CTR MINUTES OFFICE 74988 [facility] SHOWER OUTPATIEN 6 6 FAMILY [facility] T VISIT HEALTH 25 CTR MINUTES OFFICE 92095 [facility] HNASEN MIR OUTPATIEN 5 5 FAMILY T VISIT HEALTH 15 CTR MINUTES HOSPITAL MEADOWVIE - 5 5 W INPATIENT [facility] MEADOWVIE - 5 5 W OUTPATIEN [facility] T MEDICAL OFFICE 78169 J[facility] SHOWER OUTPATIEN 5 5 FAMILY [facility] T VISIT HEALTH 15 CTR MINUTES HOSPITAL MEADOWVIE - [address] [facility] MEDICAL OFFICE 09434 JAMES [facility] LOMAX VY OUTPATIEN 5 5 FAMILY T VISIT HEALTH 15 CTR MINUTES OFFICE 16884 JAMES CO SP TOMY OUTPATIEN 5 5 PRIMARY T VISIT CARE 15 CENTER MINUTES OFFICE 89785 [facility] OLZESKI OUTPATIEN 5 5 PRIMARY MAURICIO T VISIT CARE 15 CENTER MINUTES OFFICE 71193 JAMES [facility] OLZESKI OUTPATIEN 5 5 PRIMARY MAURICIO T VISIT CARE 15 CENTER MINUTES OFFICE 37898 JAMES [facility] SURJIT OUTPATIEN 5 5 PRIMARY JOSE T VISIT CARE 15 CENTER MINUTES OFFICE 12615 [facility] SP TOMY OUTPATIEN 5 5 PRIMARY T VISIT CARE 15 CENTER MINUTES OFFICE 49691 JAMES [facility] SP TOMY OUTPATIEN 5 5 PRIMARY T VISIT CARE 15 CENTER MINUTES OFFICE 12915 JAMES [facility] LOMAX VY OUTPATIEN 5 5 PRIMARY T VISIT CARE 15 CENTER MINUTES HOSPITAL UNIVERSIT - 5 5 Y [facility] T OFFICE 13767 [facility] GANSTER OUTPATIEN 5 5 PRIMARY GLORIA T VISIT CARE 15 CENTER MINUTES OFFICE 81084 JAMES CO LOMAX VY OUTPATIEN 5 5 PRIMARY T VISIT CARE 10 CENTER MINUTES EMERGENCY 87803 [facility] PORNOY 4 4 MOOSE MURTAZA DEPARTMEN EMERGENCY T VISIT PHYS HIGH/URGE NT SEVERITY EMERGENCY 62659 [facility] 4 4 MOOSE DEPARTMEN EMERGENCY T VISIT PHYS HIGH/URGE NT SEVERITY OFFICE 72180 LATASHA OUTPATIEN 2 2 DON T VISIT 15 MINUTES EMERGENCY 40396 NANCY 2 2 W [facility] T VISIT MEDICAL HIGH/URGE NT SEVERITY HOSPITAL NANCY - 2 2 W OUTMETHODIST [facility] MEAWVIE - [address] [facility] MEDICAL EMERGENCY 24380 [facility] ABRAMS DEPT 2 2 EMERGENCY [facility] SERVICES HIGH SEVERITY& THREAT FUN EMERGENCY 41025 MEADOWVIE 2 2 W [facility] VISIT MEDICAL HIGH/URGE NT SEVERITY HOSPITAL MEAWVIE - [address] [facility] MEDICAL EMERGENCY 69789 MEAWVIE 2 2 W [facility] VISIT MEDICAL MODERATE SEVERITY OFFICE 21598 JESÚS ELIAN OUTPATIEN 2 2 T VISIT 25 MINUTES HOSPITAL MEAWVIE - 2 2 W INPATIENT [facility] MEAWVIE - [address] [facility] MEDICAL OFFICE 00546 SHOWER OUTPATIEN 2 2 [facility] T VISIT 15 MINUTES HOSPITAL MEAWVIE - [address] [facility] MEDICAL OFFICE 14487 LATASHA OUTPATIEN 2 2 DON T VISIT 15 MINUTES OFFICE 94692 LATASHA OUTPATIEN 2 2 DON T VISIT 15 MINUTES OFFICE 94719 BRENNON OUTPATIEN 2 2 NANETTE T VISIT 15 MINUTES OFFICE 10256 SHOWER OUTPATIEN 2 2 BLANKENSHIP T VISIT 15 MINUTES OFFICE 39495 JESÚS ELIAN OUTPATIEN 2 2 T VISIT 15 MINUTES OFFICE 06919 JESÚS ELIAN OUTPATIEN 2 2 T VISIT 15 MINUTES OFFICE 03423 BRENNON OUTPATIEN 2 2 NANETTE T VISIT 15 MINUTES HOSPITAL MEAWVIE - [address] [facility] MEDICAL OFFICE 15929 JESÚS ELIAN OUTPATIEN 2 2 T VISIT 15 MINUTES OFFICE 96067 LATASHA OUTPATIEN 2 2 DON T VISIT 15 MINUTES OFFICE 36813 SHOWER SHOWER OUTPATIEN 2 2 [facility] BLANKENSHIP T VISIT 15 MINUTES OFFICE 73328 SHOWER SHOWER OUTPATIEN 1 1 [facility] BLANKENSHIP T VISIT 15 MINUTES EMERGENCY 50489 MEAWVIE 1 1 W [facility] T VISIT MEDICAL HIGH/URGE NT SEVERITY HOSPITAL MEADOWVIE - [address] [facility] MEDICAL OFFICE 59602 DENYS FERNANDO OUTPATIEN 1 1 [facility] T VISIT ENDOCRINO 25 LOGY, I MINUTES HOSPITAL MEADOWVIE - [address] [facility] MEDICAL EMERGENCY 04593 VAZQUEZWVIE 1 1 W [facility] T VISIT MEDICAL MODERATE SEVERITY EMERGENCY 33144 WAGNER SANCHEZ 1 1 EMERGENCY [facility] T VISIT HIGH/URGE NT SEVERITY HOSPITAL MEADOWVIE - [address] [facility] MEDICAL OFFICE 20414 DENYS FERNANDO OUTPATIEN 1 1 [facility] T VISIT ENDOCRINO 15 LOGY, I [facility] HOSPITAL MEADOWVIE - 1 1 W [facility]OSPITAL MEAWVIE - 1 1 W [facility] MEAWVIE - 1 1 W [facility] MEADOWVIE - [address] [facility] MEDICAL OFFICE 78301 JAMES JUÁREZ OUTPATIEN 1 1 [facility]IMARY GLORIA T VISIT CARE 15 CENTER MINUTES OFFICE 08569 JAMES ANAYA OUTPATIEN 1 1 PRIMARY T VISIT CARE 25 CENTER MINUTES EMERGENCY 73546 [facility] 1 1 EMERGENCY DEPARTMEN SERVICES T VISIT HIGH/URGE NT SEVERITY EMERGENCY 68950 NANCY 1 1 W DEPARTMEN REGIONAL T VISIT MEDICAL MODERATE SEVERITY HOSPITAL MEAWVIE - [address] [facility] MEDICAL OFFICE 55403 JAMES HIGH SHOWER OUTPATIEN 1 1 PRIMARY BL[facility]ENSHIP T VISIT CARE 15 CENTER MINUTES EMERGENCY 76192 WAGNER SALDANA DEPT 1 1 EMERGENCY CHR VISIT SERVICES HIGH SEVERITY& THREAT FUNCJ OFFICE 48189 JAMES HIGH SHOWER OUTPATIEN 1 1 PRIMARY BLANKENSHIP T VISIT CARE 25 CENTER MINUTES OFFICE 54358 JAMES HARDEN OUTPATIEN 0 0 PRIMARY JANENE T VISIT CARE 15 CENTER MINUTES OFFICE 66263 JAMES LAZO OUTPATIEN 0 0 PRIMARY BRUNER T VISIT CARE DECALVO 15 CENTER MAR MINUTES HOSPITAL MEADOWVIE - [address] [facility] MEDICAL OFFICE 40776 [place] ABDULLAHI OUTPATIEN 0 0 [facility] NAKUL R T VISIT ENDOCRINO 15 LOGY, [facility] MINUTES [facility] 12942 JAMES VELASQUEZ, OUTPATIEN 0 0 PRIMARY LITO E T VISIT CARE 15 CENTERINC MINUTES OFFICE 91444 JAMES VELASQUEZ, OUTPATIEN 0 0 PRIMARY LITO E T [facility] MEADOW[facility]IE - 0 0 [facility] OFF[facility] 79830 JAMES HIGH DEL OUTPATIEN 9 9 PRIMARY BRUNER T VISIT CARE DECALVO, 10 CENTERINC SHON MINUTES MISBAH V OFFICE 07048 JAMES VELASQUEZ, OUTPATIEN 9 9 PRIMARY LITO E T VISIT CARE 40 CENTERINC MINUTES OFFICE 22924 JAMES CO RON, OUTPATIEN 9 9 PRIMARY LITO E T VISIT CARE 15 CENTERINC MINUTES OFFICE 44232 RADHA ALEXIS 9 9 VALLEY NAKUL R T VISIT ENDOCRINO 25 LOGY, INC MINUTES OFFICE 95375 RADHA ALEXIS 9 9 VALLEY NAKUL R T VISIT ENDOCRINO 25 LOGY, INC MINUTES OFFICE 29282 [place] ABDULLAHI CONSULTJOLENE 9 9 VALLEY NAKUL R ION ENDOCRINO NEW/ESTAB LOGY, INC PATIENT 60 MIN HOSPITAL UNIVERSIT - 8 8 Y INPATIENT [facility]ERS[facility] - 8 [facility] 07235 RADHA OCASIO 8 8 MEDICAL KELBY F T VISIT SERV 40 FOUNDATIO MINUTES OFFICE 42437 RADHA MARIEE 8 8 PRIMARY SUKHDEV J T VISIT CARE 15 CENTERINC MINUTES OFFICE 57281 RADHA PARMAR 8 8 PRIMARY DIOGO L T VISIT CARE 15 CENTERINC MINUTES OFFICE 55179 GILMER AVENDAÑO CONSULTAT 8 8 MEDICAL RI, LORNE ION SERV NEW/ESTAB FOUNDATIO PATIENT 30 MIN OFFICE 00829 RADHA KING 8 8 PRIMARY ARMEN W T VISIT CARE 15 CENTERINC MINUTES OFFICE 52048 RADHA MARIEE 8 8 PRIMARY SUKHDEV J T VISIT CARE 15 CENTERINC MINUTES OFFICE 18420 RADHA CHAVEZ 8 8 PRIMARY STANLEY R T VISIT CARE 15 CENTERINC MINUTES HOSPITAL NANCY - 8 8 W OUTPATIEN [facility]ICAL CENTER EMERGENCY 35160 NANCY 8 8 W [facility] T VISIT MEDICAL HIGH/URGE CENTER NT SEVERITY
--- OUTSIDE RECORDS SUMMARY | 2016-12-19 22:11 | External Medical Summary Rpt ---
Author Author , Organization [employer] Address Unknown Phone Unavailable Care Team Providers Care Mouse Breeder Name Role Phone [facility] [place] [facility], Unavailable [...] LITO VELASQUEZ DEN, RANDI DEN Unavailable Unavailable [facility], Unavailable Unavailable [facility] GIANA CARRILLO Unavailable Unavailable JIM FERNANDEZ, GIANA Unavailable Unavailable JIM STUBBS, Unavailable Unavailable QUINCY SANTOS Unavailable Unavailable KELBY PARK, Unavailable Unavailable KELBY MATHEW HARLAMERT HEN, Unavailable Unavailable HARLAMERT HEN HOGGE TOMY, HOGGE TOMY Unavailable Unavailable ABDULLAHI ECHAVARRIA Unavailable Unavailable NAKUL FRANKLIN, Unavailable Unavailable NAKUL FERNANDO [facility] Unavailable Unavailable PHARMACY, [facility] HANSEN MIR, HANSEN MIR Unavailable [...] [facility] [facility], Unavailable Unavailable [facility] & Unavailable Unavailable [facility] Unavailable Unavailable [facility] Unavailable Unavailable [facility] DIPAK LOCKETT Y, Unavailable Unavailable DIPAK LOCKETT Y RAI, RON Y, RAI, RON Unavailable Unavailable Y [facility], [facility] Unavailable Unavailable CENTER, [facility] JERI GREGG B, Unavailable Unavailable MARYSOL JERI B [facility] Unavailable Unavailable SERVICES, [facility] Unavailable Unavailable DEPARTMENT, [facility] DE[facility] [employer] [facility], Unavailable Unavailable [employer] [facility] [employer] Unavailable Unavailable PHARMACY, [facility] Unavailable Unavailable [facility], [facility], [facility], [facility] Unavailable Unavailable AMBULANCE, [facility]available Unavailable [facility], [facility] Unavailable Unavailable [facility] Unavailable Unavailable MEDICAL, [facility] Unavailable Unavailable MEDICAL CENTER, [facility] SHANICE PRASAD Unavailable Unavailable THANIA PALMER, Unavailable Unavailable THANIA PALMER MORRIS Unavailable Unavailable MAR MOHAN, MAR Unavailable Unavailable JAM O'JULIETHREFUGIO MOON, O'JULIETH Unavailable Unavailable SARAI O'JULIETHREFUGIO MOON, O'JULIETH Unavailable Unavailable SARAI [facility] Unavailable Unavailable ENDOCRINOLOGY, I, [facility] ENDOCRINOLOGY, I OLZESKI MAURICIO, OLZESKI Unavailable [...] DIOGO L, Unavailable Unavailable SHOWER, DIOGO L [facility] Unavailable Unavailable EMERGENCY PHYS, [facility] YAP KER, YAP KER Unavailable Unavailable SALDANA CHR, Unavailable Unavailable SALDANA CHR MERISSA PONCE, Unavailable Unavailable MERISSA PONCE TUCKER Unavailable Unavailable [facility], Unavailable Unavailable [facility] LATASHA FRANCISCO, LATASHA Unavailable Unavailable NOLAN FRANCISCO, [...] 10-08-2016 [facility] [id number] INSECT BITE 03-18-2016 [facility] INITIAL ENCOUNTER [id number] INSECT BITE 03-18-2016 [facility] NONVENOMOUS HEALTH CTR LT FOREARM INITIAL ENC [id number] INSECT BITE 03-18-2016 [facility] NONVENOMOUS [facility] CTR RT LOWER LEG INITIAL ENC [id number] INSECT BITE 03-18-2016 [facility] FAMILY NONVENOMOUS [...] CO COMPLICATIN FAMILY G HEALTH CTR CHILDBIRTH [id number] ENDOCRINE 07-09-2015 [facility] NUTRITION & FAMILY METAB DZ HEALTH CTR COMP CHILDBIRTH Z302 ENCOUNTER 07-09-2015 [facility] FOR FAMILY STERILIZATI HEALTH CTR ON Z370 SINGLE LIVE 07-09-2015 [facility] Z3A37 37 WEEKS 07-09-2015 [facility] GESTATION FAMILY OF [facility] CTR N838 OTH 07-07-2015 [facility] NONINFLAMM ID INC D/O OVARY FALLOP TUBE & BROAD LIG O0943 SUPERVISION 07-07-2015 [facility] PREG REGIONAL W/GRAND MEDICAL MULTIPARITY THIRD TRI X23433 SUP PREG 07-01-2015 [facility] W/OTH POOR FAMILY REPRODUCTIV HEALTH CTR E/OB HX UNS TRI H71887 SMOKING 07-01-2015 [facility] TOBACCO [facility]ILY [facility] CTR THIRD TRIMESTER I42239 ENCOUNTER 07-01-2015 [facility] FOR OTHER REGIONAL PREPROCEDUR MEDICAL AL EXAMINATION Z3009 ENCOUNTER 07-01-2015 [facility] ANILA OT [facility]AL [facility] CTR PORTAL ADMINISTRATOR&ADV ICE CONTRACEPT Z3A36 36 WEEKS 07-01-2015 [facility] GESTATION FAMILY OF [facility] CTR C13509 SUP PREG 06-26-2015 ID MEDICAL W/OTH POOR SERV REPRODUCTIV FOUNDATION E/OB HX THIRD TRI T02424 UTERINE 06-26-2015 ID MEDICAL SIZE-DATE SERV DISCREPANCY FOUNDATION THIRD TRIMESTER Z36 ENCOUNTER 06-26-2015 [facility] FOR REGIONAL MEDICAL SCREENING OF MOTHER Z3A35 35 WEEKS 06-26-2015 [place] [facility] GESTATION SERV OF FOUNDATION 2449 UNSPECIFIED 05-08-2015 [facility] FAMILY HYPOTHYROID HEALTH CTR ISM 24966 MATERNAL 05-08-2015 [facility] IHGH ANEMIA, FAMILY ANTEPARTUM HEALTH CTR V237 INSUFFICIEN 05-08-2015 [facility] T [facility] CTR V2389 SUPERVISION 05-08-2015 [facility]IGH OF OTHER FAMILY HIGH-RISK HEALTH CTR V2881 ENCOUNTER 04-24-2015 ID MEDICAL FOR SERV ANATOMIC FOUNDATION SURVEY V221 SUPERVISION 04-10-2015 [facility] OF OTHER PRIMARY NORMAL CARE CENTER 75216 PREVIOUS 03-27-2015 ID MEDICAL C-SECT SERV DELIVERY FOUNDATION ANTPRTM COND/COMP V2341 SUPERVISION 03-27-2015 ID MEDICAL SERV W/HISTORY FOUNDATION PRE-TERM LABOR 78732 CERVICAL 03-06-2015 ID MEDICAL INCOMPETENC SERV E ANTPRTM FOUNDATION COND/COMPLI CATION 54640 UNS 02-06-2015 [facility] ABNORM MGMT PRIMARY MOTH CARE CENTER ANTPRTM COND/COMP V2889 OTHER 02-06-2015 [facility] SPECIFIED PRIMARY CARE CENTER SCREENING 15252 UNSPECIFIED 01-29-2015 [facility] ANTEPARTUM PRIMARY HEMORRHAGE CARE CENTER ANTEPARTUM 65138 TOB USE D/O 01-29-2015 [facility] COMP [...] /TEST CARE CENTER UNCONFIRMED 7804 DIZZINESS 08-02-2014 [facility] EMERGENCY GIDDINESS PHYS 7881 DYSURIA 03-16-2014 [facility] N EMERGENCY PHYS 1121 CANDIDIASIS 06-21-2012 LATASHA DON OF VULVA AND VAGINA 4019 UNSPECIFIED 06-18-2012 [facility] ESSENTIAL REGIONAL HYPERTENSIO MEDICAL N 83369 UNSPECIFIED 06-18-2012 [facility] PYELONEPHRI SERVICES TIS 5990 URINARY 06-18-2012 [facility] TRACT REGIONAL INFECTION MEDICAL SITE NOT SPECIFIED 19480 UNSPECIFIED 06-18-2012 [facility] VAGINITIS REGIONAL AND MEDICAL VULVOVAGINI TIS 79377 NAUSEA 06-17-2012 [facility] 38301 ABDOMINAL 06-17-2012 [facility] PAIN, REGIONAL UNSPECIFIED MEDICAL SITE 15818 ABDOMINAL 06-17-2012 [facility] PAIN OTHER RADIOLOGY SPECIFIED ASSOCIAT SITE 4553 EXTERNAL 06-03-2012 [facility] HEMORRHOIDS REGIONAL WITHOUT MEDICAL MENTION COMP V242 ROUTINE 05-04-2012 [facility] FOLLOW-UP V2501 GENERAL 05-04-2012 [facility] COUNSELING PRESCRIPTIO N ORAL CONTRACEPTS 6146 PELVIC 03-28-2012 [facility] PERITONEAL ADHESIONS, FEMALE 67842 OTH CURRENT 03-28-2012 [facility] MATERNAL CCE W/DELIVERY 90178 PREV C/S 03-28-2012 [facility] DELIV DELIV W/WO MENTION ANTPRTM COND V270 OUTCOME OF 03-28-2012 [facility] DELIVERY SINGLE LIVEBORN 93867 MTRN 03-27-2012 [facility] DYSF DELIV MEDICAL W/WO ANTPRTM COND 44056 TOBACCO USE 03-27-2012 [facility] D/O COMP REGIONAL PG MEDICAL CHILDBIRTH/ PP DELIVERED 78018 UNSPECIFIED 03-20-2012 [facility] ABNORMALITY OF LABOR ANTEPARTUM V286 SCREENING 03-09-2012 [facility] [place] [address] DECREASED 03-03-2012 [facility] MOVEMENTS UNSPEC EPISODE CARE 07952 UTERINE 03-02-2012 LATASHA FRANCISCO SIZE DATE DISCREPANCY [...] MEDICAL ARM AND FOREARM 2411 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 [facility] MULTINODULA R GOITER ENDOCRINOLO GY, I 2448 OTHER 03-30-2011 [facility] SPECIFIED ACQUIRED ENDOCRINOLO HYPOTHYROID GY, I ISM 2452 CHRONIC 03-30-2011 [facility] LYMPHOCYTIC ENDOCRINOLO THYROIDITIS GY, I 39993 OTHER 03-30-2011 [facility] MALAISE AND FATIGUE ENDOCRINOLO GY, I 6253 DYSMENORRHE 03-01-2011 [facility] A REGIONAL MEDICAL 6262 EXCESSIVE 03-01-2011 [facility] OR FREQUENT REGIONAL [place]ICAL MENSTRUATIO N 74860 THREATENED 02-15-2011 [facility] , REGIONAL ANTEPARTUM MEDICAL 632 MISSED 02-08-2011 [facility] REGIONAL MEDICAL 35365 OTHER SPEC 01-27-2011 [facility] HEMORRHAGE PRIMARY EARLY CARE CENTER ANTEPARTUM 67747 UNSPEC 01-26-2011 [facility] EMERGENCY EARLY SERVICES ANTEPARTUM V1582 PERS HX 01-26-2011 [facility] TOBACCO USE REGIONAL PRESENTING MEDICAL HAZARDS HEALTH 6268 OTH D/O 12-31-2010 [facility] MENSTRUATIO PRIMARY N&OTH ABN CARE CENTER BLEED FE GNT TRACT V280 SCREENING 12-31-2010 [facility] CHROMOSOMAL PRIMARY ANOMALIES [place]OCENTES [place] V7242 12-31-2010 [facility] EXAMINATION PRIMARY OR TEST CARE CENTER POSITIVE RESULT 48213 URINARY 04-21-2010 [facility] FREQUENCY PRIMARY CARE CENTER V2542 SURVEILLANC 04-21-2010 [facility] E PREV PRSC PRIMARY INTRAUTERN CARE CENTER CNTRACPT DEVC 7831 ABNORMAL 01-07-2010 [facility] WEIGHT GAIN PRIMARY CARE CENTERINC 22506 PAIN IN 10-22-2009 [facility] JOINT, PRIMARY SHOULDER CARE REGION CENTERINC 90588 OTHER 07-23-2009 [facility], [facility] JOINT OTHER SPEC SITE 7822 LOCALIZED 07-23-2009 [facility] SUPERFICIAL PRIMARY SWELLING CARE MASS OR CENTERINC LUMP V7232 ENCOUNTER 04-23-2009 [facility] PAP CERV PRIMARY SMER CARE [place] [address] OBESITY, 03-06-2009 [facility] UNSPECIFIED HEALTH CENTRAL BANK ACCT V653 DIETARY 03-06-2009 [facility] SURVEILLANC HEALTH E AND CENTRAL COUNSELING BANK ACCT 2469 UNSPECIFIED 02-26-2009 [facility] DISORDER PRIMARY OF THYROID CARE CENTERINC 2461 DYSHORMONOG 02-25-2009 [facility] EN GOITER ENDOCRINOLO GY, INC V251 ENCOUNTER 07-17-2008 [facility] MEDICAL INSERT/MEHNAZ SERV DENAE IU FOUNDATIO CONTRACEPTI VE DEVICE 81920 BREECH 06-12-2008 ID MEDICAL PRESENTATIO SERV N W/O FOUNDATIO MENTION VERSION DELIV 62325 CHROMOSM 06-12-2008 ID MEDICAL ABNORM SERV FETUS FOUNDATIO AFFECT MGMT MOTH W/DELIV 26680 PREMATURE 06-12-2008 [facility] RUPTURE SERV MEMBRANES FOUNDATIO DELIVERED 19939 C/S DELIV 06-12-2008 ID MEDICAL W/O MENTION SERV INDICAT FOUNDATIO UNS EPIS CARE 37545 DELAY DELIV 06-11-2008 [facility] AFTER SERV SPONT/UNSPE FOUNDATIO C RUP MEMB ANTPRTM 14339 PREMATURE 06-10-2008 [facility] RUPTURE SERV MEMBRANES FOUNDATIO ANTEPARTUM 26781 SPOTTING 06-09-2008 ID MEDICAL COMP SERV FOUNDATIO ANTEPARTUM COND/COMP 36661 ESOPHAGEAL 05-22-2008 [facility] 70680 PREMATURE 05-22-2008 [facility] WITH DELIVERY 68215 OTH CURRENT 05-22-2008 [facility] CLASSIFIABL E ELSW ANTPRTM 16793 DELAY DELIV 05-22-2008 [facility] SPONT/UNSPE C RUP MEMB DELIV 83846 OLIGOHYDRAM 05-20-2008 ID MEDICAL NIOS, SERV ANTEPARTUM FOUNDATIO 56720 THREATENED 04-27-2008 [facility] PREMATURE PRIMARY LABOR CARE ANTEPARTUM CENTERINC 42466 OTHER 04-25-2008 [place] [facility] SPECIFED SERV COMPLICATIO FOUNDATIO N ANTEPARTUM 32403 CNTRL NERV 04-25-2008 [place] [facility] SYS SERV MALFORMATIO FOUNDATIO N IN FETUS ANTEPARTUM 7965 ABNORMAL 04-25-2008 [place] [facility] FINDING ON SERV FOUNDATIO SCREENING 6238 OTHER 03-05-2008 [facility] SPECIFIED [facility] DISORDER VAGINA Medications Na [...] 70 3- 4- 00 00 OL ve MT 33 20 20 78 DS IL 71 [...] 20 20 FA R 71 11 11 MA KE HC 1 LY LL L Y 50 DR UG MG TA BL ET DO 60 06 06 0 60 30 MA 63 GA Ac CU 25 -0 -0 .0 SO 61 NS ti SA 80 8- 8- 00 N 62 TE ve TE 95 20 20 FA R 50 11 11 MA KE SO 1 LY LL DI Y UM DR UG 10 0 MG CA PS UL E IB 53 06 06 0 60 20 MA 63 GA Ac UP 74 -0 -0 .0 SO 61 NS ti RO 60 8- 8- 00 N 63 TE ve FE 46 20 20 FA R N 60 11 11 MA KE 80 5 LY LL [address] CARLIE TA BL ET FE 00 06 06 0 90 30 MA 63 GA Ac RR 67 -0 -0 .0 SO 61 NS ti OU 70 8- 8- 00 N 64 TE ve S 07 20 20 FA R CAMPOS 00 11 11 MA KE LF 1 LY LL AT Y E DR 32 UG 5 MG TA BL ET LE 00 12 06 5 30 30 MA 62 HO Ac VO 37 -2 -0 .0 SO 75 LM ti TH 81 2- 2- 00 N 33 ES ve YR 81 20 20 FA OX 30 10 11 MA YA IN 1 LY NC E EY 12 DR R 5 UG MC G TA BL ET NI 00 05 05 0 14 7 MA 63 KE Ac TR 37 -2 -2 .0 SO 53 EF ti OF 83 4- 4- 00 N 21 ve UR 42 20 20 FA KI AN 20 11 11 MA MB TO 1 LY ER IN LY DR MO UG NO -M CR 10 0 MG MT 65 05 05 11 30 30 MA 63 KE Ac EN 16 -1 -1 .0 SO 46 EF ti AT 20 2- 2- 00 N 22 ve AL 66 20 20 FA KI [address] 0 LY ER US LY DR TA UG BL ET ME 50 08 08 0 14 7 MA 62 RE Ac TR 11 -3 -3 .0 SO 26 DM ti ON 10 N 28 ON ve ID 33 20 20 FA D AZ 40 10 10 MA ME OL 2 LY LI E SS 50 DR A 0 UG A MG TA BL ET LE 00 04 08 3 30 30 MA 61 HO Ac VO 52 -2 -1 .0 SO 71 LM ti TH 71 0- 6- 00 N 38 ES ve YR 34 20 20 FA OX 70 10 10 MA YA IN 1 LY NC E EY 12 DR Haney 5 UG MC G TA BL ET BU 00 06 06 0 30 30 MA 61 GI Ac MT 59 -1 -1 .0 SO 94 LL ti OP 13 1- 1- 00 N 90 IS ve IO 54 20 20 FA N 16 10 10 MA AN HC 0 LY NE L E SR UG 15 0 MG TA BL ET LE 00 04 05 3 30 30 MA 61 HO Ac VO 52 -2 -2 .0 SO 71 LM ti TH 71 0- 5- 00 N 38 ES ve YR 34 20 20 FA OX 70 10 10 MA YA IN 1 LY NC E EY 12 DR Haney 5 UG MC G TA BL ET 00 05 05 0 30 30 MA 61 GI Ac 09 -1 -1 .0 SO 82 LL ti 34 3- 3- 00 N 13 IS ve 35 20 20 FA 61 10 10 MA AN [address] SEXT[place] SE 31 04 04 5 15 30 MA 61 GI Ac RT 72 -2 -2 .0 SO 72 LL ti RA 20 3- 3- 00 N 63 IS ve LI 21 20 20 FA NE 30 10 10 MA AN 5 LY NE HC E L DR 50 UG MG TA BL ET LE 00 04 04 3 30 30 MA 61 HO Ac VO 52 -2 -2 .0 SO 71 LM ti TH 71 0- 0- 00 N 38 ES ve YR 34 20 20 FA OX 70 10 10 MA YA IN 1 LY NC E EY 12 DR Haney 5 UG MC G TA BL ET 60 04 04 0 8. 2 MA 20 AD Ac 95 -0 -0 00 SO 12 AM ti 10 2- 2- 0 N 52 S ve 79 20 20 FA JA 67 10 10 MA ME [address] E [address] UG 00 03 03 0 8. 3 MA 20 AD Ac 40 -2 -2 00 SO 12 AM ti 60 9- 9- 0 N 38 S ve 58 20 20 FA JA 20 10 10 MA ME 1 LY S E UG 00 03 03 0 10 2 MA 20 AD Ac 40 -2 -2 .0 SO 12 AM ti 60 5- 5- 00 N 18 S ve 58 20 20 FA JA 20 10 10 MA ME [address] SEXTON CE 00 03 03 0 30 10 MA 61 AD Ac PH 14 -2 -2 .0 SO 58 AM ti AL 39 5- 5- 00 N 56 S ve EX 89 20 20 FA JA IN 70 10 10 MA ME 5 LY S [address] MG UG CA PS UL E LO 00 03 03 0 10 10 MA 40 GI Ac RA 59 -0 -0 .0 SO 23 LL ti ZE 10 3- 3- 00 N 90 IS ve PA 24 20 20 FA M 11 10 10 MA AN 1 0 LY NE MG E DR TA UG BL ET SE 31 03 03 0 15 30 MA 61 GI Ac RT 72 -0 -0 .0 SO 47 LL ti RA 20 3- 3- 00 N 11 IS ve LI 21 20 20 FA NE 30 10 10 MA AN 5 LY NE HC E L DR 50 UG MG TA BL ET LE 00 08 03 5 30 30 MA 60 HO Ac VO 37 -1 -0 .0 SO 45 LM ti TH 81 8- 3- 00 N 02 ES ve YR 81 20 20 FA OX 30 09 10 MA YA IN 1 LY NC E EY 12 DR R 5 UG MC G TA BL ET LE 00 08 02 04 30 30 MA 60 HO Ac VO 37 -1 -2 .0 SO 45 LM ti TH 81 8- 6- 00 N 02 ES ve YR 81 20 20 FA OX 30 09 10 MA YA IN 1 LY NC E EY 12 PH R 5 AR MC TAMY G CY TA BL ET LE 00 08 12 03 30 30 MA 60 HO Ac VO 37 -1 -3 .0 SO 45 LM ti TH 81 8- 1- 00 N 02 ES ve YR 81 20 20 FA OX 30 09 09 MA YA IN 1 LY NC E EY 12 PH R 5 AR MC TAMY G CY TA BL ET LE 00 08 12 02 30 30 MA 60 HO Ac VO 37 -1 -0 .0 SO 45 LM ti TH 81 8- 3- 00 N 02 ES ve YR 81 20 20 FA OX 30 09 09 MA YA IN 1 LY NC E EY 12 PH R 5 AR MC MA G CY TA BL ET LE 00 08 09 01 30 30 MA 60 HO Ac VO 37 -1 -2 .0 SO 45 LM ti TH 81 8- 4- 00 N 02 ES ve YR 81 20 20 FA OX 30 09 09 MA YA IN 1 LY NC E EY 12 PH R 5 AR MC TAMY G CY TA BL ET LE 00 08 08 00 30 30 MA 60 HO Ac VO 37 -1 -2 .0 SO 45 LM ti TH 81 8- 7- 00 N 02 ES ve YR 81 20 20 FA OX 30 09 09 MA YA IN 1 LY NC E EY [...] 20 20 FA OX 50 09 09 MA YA IN 1 LY NC E EY [...] 0 OB S /G E YN FA MA LY HE AL TH 60 05 05 [...] 10 5- 1- 00 NW 67 ve MT [address] AM 40 09 09 LS EV 1 EN HB PH E R AR 40 MA CY MG TA BL ET CI 60 04 04 00 15 15 MA 60 NE Ac TA 50 -0 -2 .0 YS 08 US ti LO 52 6- 3- 00 95 ve MT 52 [address] AM 00 09 09 E EV 1 OB EN HB /G E R YN 40 FA MG MA LY TA BL HE ET AL TH 00 04 04 00 10 10 MA 40 NE Ac 78 -0 -2 .0 YS 02 US ti 11 6- 3- 00 18 ve 40 [address] 40 09 09 E EV 1 OB EN /G E YN FA MA LY HE AL TH MA 50 10 12 00 1. 30 KE 12 No Ac RE 41 -2 -0 00 NT 11 t ti NA 90 3- 4- 0 UC 79 Av ve 42 20 20 [place] 8 ai SY [address] 1 CL bl EM IN e IC PH AR MA CY MT 65 10 11 00 30 30 KR [...] Procedure DOS Code Location Performer Comment ECG 56401 [facility] PRASAD ROUTINE 7 FAMILY ECG HEALTH W/LEAST CTR 12 LDS W/I&[place] [address] [facility] TRIIODOTH 7 [facility] YRONINE [facility]INGS [place] T3 [place] [address] [place] [address] [facility] FREE 7 [facility] [address] [facility] THYROID 7 [facility] STIMULATI HOLDINGS HOLDINGS NG HORMONE TSH PRESSURIZ 36569 [facility] GORE DEN ED/NONPRE 6 FAMILY SSURIZED [place] [address] [facility] THYROID 6 [facility] NG [facility] 59002 [facility] HOGGE TOMY DISCHARGE 5 FAMILY DAY HEALTH MANAGEMEN CTR T 30 MIN/< SBSQ 27937 [facility] 5 FAMILY JANENE CARE/DAY HEALTH 15 CTR MINUTES 14697 [facility]OWER DELIVERY 5 FAMILY [facility] ONLY HEALTH CTR LAPAROSCO 43392 [facility] SHOWER PY W/RMVL 5 [facility]ILY [facility] [place] [address] [facility] SURG 5 [place] INC HEN PATHOLOGY GROSS&GERARDO ROSCOPIC EXAM EXTRACTIO [id number] [facility] N PRODUCT 5 W W OF [facility] CONCEPTIO MEDICAL MEDICAL N LOW CERVICAL OP OCCLUSION [id number] [facility] 5 W W BILATERAL [facility] MEDICAL MEDICAL FALLOPIAN TUBES OPEN POTASSIUM 77176 [facility] SERUM 5 W W PLASMA/WH [facility] OLE BLOOD MEDICAL MEDICAL CULTURE 21508 [facility] BACTERIAL 5 W W [facility] QUANTTATI MEDICAL MEDICAL VE COLONY COUNT URINE BLOOD 48189 [facility] COUNT 5 W W COMPLETE [facility] AUTO&AUTO MEDICAL MEDICAL DIFRNTL WBC COLLECTIO 98361 [facility] N VENOUS 5 W W BLOOD [facility] VENIPUNCT MEDICAL MEDICAL URE URNLS DIP 53300 [facility] 5 W W STICK/TAB REGIONAL REGIONAL LET MEDICAL MEDICAL REAGENT AUTO MICROSCOP [place] PREG 57682 [facility] UTERUS 5 MEDICAL LD AGA AFTER 1ST SERV TRIMEST FOUNDATIO N GESTATION 12301 [facility] BIOPHYSIC 5 MEDICAL LD AGA AL SERV PROFILE FOUNDATIO W/O N NON-STRES S TESTING CUL 13378 NANCY CRUZ PRSMPTV 5 W W PTHGNC REGIONAL REGIONAL ORGANISM MEDICAL MEDICAL SCRN W/COLONY ESTIMJ IADNA 35920 NANCY MEAWSATISH STREPTOCO 5 W W CCUS REGIONAL REGIONAL GROUP B MEDICAL [place] [address] [facility] FREE 5 [facility] [address] [facility] THYROID 5 [facility] STIMULAT[facility] [employer] HOLDINGS NG HORMONE TSH BLOOD 78091 [facility] [place] VY COUNT 5 FAMILY HEMOGLOBI HEALTH N CTR GLUCOSE 17628 [facility] POST 5 [facility] [place] [address] [facility] TRIIODOTH 5 [facility] YRONINE HOLDINGS HOLDINGS T3 FREE URNLS DIP 94825 [facility] CO 5 FAMILY FAMILY STICK/TAB HEALTH HEALTH LET RGNT CTR CTR NON-AUTO W/O MICRSCP URNLS DIP 99340 [facility] HOGGE TOMY 5 PRIMARY STICK/TAB CARE LET RGNT CENTER NON-AUTO W/O MICRSCP US PREG 24726 [place] MATHEW UTERUS 5 MEDICAL DOMINIQUE REAL TIME SERV F/U FOUNDATIO TRNSABDL N PER FETUS URNLS DIP 93462 [facility] ABARCA 5 PRIMARY MAURICIO STICK/TAB CARE LET RGNT CENTER NON-AUTO W/O MICRSCP URNLS DIP 41221 [facility] ABARCA 5 PRIMARY MAURICIO STICK/TAB CARE LET RGNT CENTER NON-AUTO W/O MICRSCP COLLECTIO 84162 [facility] ABARCA N VENOUS 5 PRIMARY MAURICIO [place] [address] [place] PLAYFORTH 5 MEDICAL CARLEE UTERUS SERV LIMITED FOUNDATIO 1/> [place] [address] [facility] THYROID 5 [facility] STIMULATI HOLDINGS HOLDINGS NG HORMONE TSH US PREG 52023 [facility] SURJIT UTERUS 5 PRIMARY JOSE W/DETAIL CARE CENTER EMILIA 1ST GESTATION URNLS DIP 25507 [facility] SURJIT 5 PRIMARY JOSE STICK/TAB CARE LET RGNT CENTER NON-AUTO W/O MICRSCP US PREG 22455 [place] CRITCH[place]E UTERUS 5 MEDICAL LD AGA REAL TIME SERV W/IMAGE FOUNDATIO DCMTN [place] TRANSV[place] PREG 13607 [place] [facility] UTERUS 5 MEDICAL LD AGA AFTER 1ST SERV TRIMEST FOUNDATIO 1/ N GESTATION URNLS DIP 01656 [facility] HOGGE TOMY 5 PRIMARY STICK/TAB CARE LET RGNT CENTER NON-AUTO W/O MICRSCP ALPHA-FET 00571 LAB COR LAB COR OPROTEIN 5 [facility] SERUM HOLDING HOLDING URNLS DIP 68009 [facility] HOGGE TOMY 5 PRIMARY STICK/TAB CARE LET RGNT CENTER NON-AUTO W/O MICRSCP US PREG 88050 [facility] HOGGE TOMY UTERUS 5 PRIMARY REAL TIME CARE F/U CENTER TRNSABDL PER FETUS COLLECTIO 87954 [facility] SP TOMY N VENOUS 5 PRIMARY BLOOD CARE VENIPUNCT CENTER URE US PREG 96273 [facility] [place] VY UTERUS 5 PRIMARY REAL TIME CARE F/U CENTER TRNSABDL PER FETUS TOBACCO 21850 [facility] VY USE 5 PRIMARY CESSATION CARE CENTER INTERMEDI ATE 3-10 MINUTES URNLS DIP 13591 [facility] [place] VY 5 PRIMARY STICK/TAB CARE LET RGNT CENTER NON-AUTO W/O MICRSCP IADNA 12826 [facility] NEISSERIA 5 [facility] HOLDINGS GONORRHOE AE AMPLIFIED PROBE TQ IADNA 41129 [facility] KIKI 5 [facility] SPECIES [employer] HOLDINGS AMPLIFIED PROBE TQ IADNA NOS 04183 [facility] 5 [facility] AMPLIFIED HOLDINGS HOLDINGS PROBE TQ EACH ORGANISM IADNA 48823 [facility] TRICHOMON 5 [facility] [employer] VAGINALIS AMPLIFIED PROBE TECH IADNA 45101 [facility] CHLAMYDIA 5 [facility] [employer] HOLDINGS TRACHOMAT IS AMPLIFIED PROBE TQ GONADOTRO 18302 [facility] PIN 5 Y Y [facility] QUANTITAT BRYAN 84570 [facility] -ASSOCIAT 5 Y Y ED PLASMA [facility] [place] [address] [place]UL[place] NUCHAL 5 MEDICAL SARAI TRANSLUCE SERV NCY 1ST FOUNDATIO GESTATION N URNLS DIP 98079 [facility] 5 PRIMARY GLORIA STICK/TAB CARE LET RGNT CENTER NON-AUTO W/O MICRSCP IADNA 31386 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 NEISSERIA 5 Y ARM[facility]O OF Y [facility] OF [facility] GONORRHOE H H AE AMPLIFIED PROBE TQ CYTP 80701 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 CERVICAL/ 5 Y [facility] OF Y [facility] OF VAGINAL [facility] REQ H H INTERP PHYSICIAN IADNA 79539 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 CHLAMYDIA 5 Y ARM[facility]O OF Y ARM[facility] OF [facility] TRACHOMAT H H IS AMPLIFIED PROBE TQ IADNA 94492 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 HUMAN 5 Y ARM[facility] OF Y [place] OF [place] [facility] VIRUS H H HIGH-RISK TYPES CYTP C/V 94235 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 AUTO THIN 5 Y ARMANDO [...] METABOLIT HOLDINGS HOLDINGS ES EACH PROCEDURE CREATININ 25140 [facility] E OTHER 5 [facility] SOURCE [employer]INGS [place] OF G6040 [facility] ALCOHOL; 5 [facility] ANY HOLDINGS HOLDINGS SPECIMEN EXCEPT BREATH [place] OF G6042 [facility] AMPHETAMI 5 [facility] NE OR HOLDINGS [place] G6044 [facility] COCAINE 5 [facility] OR HOLDINGS HOLDINGS METABOLIT E URINE 72454 [facility] VY 5 PRIMARY TEST CARE VISUAL CENTER COLOR CMPRSN METHS SMR PRIM 58753 [facility]AD[facility] MEADOWVIE SRC 2 W W GRAM/GIEM [facility] SA STAIN MEDICAL MEDICAL BCT FUNGI/KAVITHA L IADNA 15080 MEAD[facility]IE MEADOWVIE CHLAMYDIA 2 W W [facility] TRACHOMAT MEDICAL MEDICAL IS AMPLIFIED PROBE TQ SMR PRIM 31512 MEADOW[facility]IE MEADOWVIE SRC WET 2 W W [facility] NFCT AGT MEDICAL MEDICAL CUL BACT 32123 MEADOW[facility]IE MEADOWVIE XCPT 2 W W URINE [facility] BLOOD/STO MEDICAL MEDICAL OL AEROBIC ISOL CULTURE 79691 MEADOW[facility]IE MEADOWVIE BACTERIAL 2 W W [facility] [facility] VE COLONY COUNT URINE URINE 87237 MEADOWVIE MEADOWVIE 2 W W TEST [facility] VISUAL MEDICAL MEDICAL COLOR CMPRSN METHS URNLS DIP 35676 MEADOWVIE MEADOWVIE 2 W W STICK/TAB [facility] LET MEDICAL MEDICAL REAGENT AUTO MICROSCOP Y URNLS DIP 06637 MEADOWVIE MEADOWVIE 2 W W STICK/TAB [facility] LET MEDICAL MEDICAL [place] [address] MEADOWVIE MEADOWVIE AMYLASE 2 W W [facility] MEDICAL MEDICAL COMPREHEN 80627 MEADOWVIE MEADOWVIE SIVE 2 W W METABOLIC [facility] PANEL MEDICAL MEDICAL THER 47623 MEADOWVIE MEADOWVIE PROPH/DX 2 W W NJX IV [facility] PUSH MEDICAL MEDICAL SINGLE/1S T SBST/DRUG INJECTION [id number] MEADOWVIE MEADOWVIE 2 W W ONDANSETR [facility] ON HCL MEDICAL MEDICAL PER 1 MG GROUND A0425 [facility] MILEAGE 2 ANAT CO ANAT CO PER STATUTE AMBULANCE AMBULANCE MILE AMBULANCE A0429 [facility] SERVICE 2 ANAT CO ANTA CO BLS EMERGENCY AMBULANCE AMBULANCE TRANSPORT THERAPEUT 28132 MEADOWVIE MEADOWVIE IC 2 W W INJECTION [facility]IONAL [facility]IONAL [place] [address] MEADOWVIE MEADOWVIE INFUSION 2 W W HYDRATION [facility] MEDICAL MEDICAL ADDITIONA L HOUR COLLECTIO 09224 MEADOWVIE MEADOWVIE N VENOUS 2 W W BLOOD [facility] VENIPUNCT MEDICAL MEDICAL URE URINE 70123 MEADOWVIE MEADOWVIE 2 W W TEST [facility] VISUAL [facility] MEDICAL COLOR CMPRSN METHS BLOOD 42100 MEADOWVIE MEADOWVIE COUNT 2 W W COMPLETE [facility] AUTO&AUTO MEDICAL MEDICAL DIFRNTL WBC RADEX ABD 34843 [facility] COMPL 2 EIDER EVELYNE AQT ABD RADIOLOGY W/S/E/D ASSOCIAT VIEWS 1 VIEW CH INJECTION [id number] MEADOWVIE MEADOWVIE 2 W W KETOROLAC [facility] TROMETHAM INE [place] 15 [place] [address] MEADOWVIE MEADOWVIE LIPASE [address] [facility] MEDICAL SBSQ 73375 [facility] 2 NANETTE NANETTE CARE/DAY 15 MINUTES ANESTHESI 11005 VERNON JUNIOR A 2 ANT ANT DELIVERY ONLY 37860 JESÚS ELIAN JESÚS ELIAN DELIVERY 2 ONLY OTHER 5459 MEADOWVIE MEADOWVIE LYSIS OF 2 W W PERITONEA [facility] L MEDICAL MEDICAL ADHESIONS LOW 741 MEADOWVIE MEADOWVIE CERVICAL 2 W W [facility] SECTION MEDICAL MEDICAL BLOOD 27716 MEADOWVIE MEADOWVIE COUNT 2 W W COMPLETE [facility] REGIONAL AUTO&AUTO MEDICAL MEDICAL DIFRNTL WBC 69352 MEADOWVIE MEADOWVIE LUNG 2 W W MATURITY [facility] LAMELLAR MEDICAL MEDICAL BODY DENSITY POTASSIUM 56629 MEADOWVIE MEADOWVIE SERUM 2 W W PLASMA/WH REGIONAL REGIONAL OLE BLOOD MEDICAL MEDICAL 00505 MEADOWVIE MEADOWVIE NONSTRESS 2 W W TEST [facility] MEDICAL MEDICAL COLLECTIO 56679 NANCY CRUZ N VENOUS 2 W W BLOOD [facility] [place] [address] NANCY CRUZ GUIDANCE 2 W W AMNIOCENT [facility] MEDICAL MEDICAL S&I AMNIOCENT 43443 SHOWER SHOWER ESIS 2 [place] DIAGNOSIC URNLS DIP 94173 SHOWER SHOWER 2 [place] STICK/TAB LET RGNT NON-AUTO W/O MICRSCP CUL 36559 NANCY CRUZ PRSMPTV 2 W W [facility] SCRN W/COLONY ESTIMJ 31979 BRENNON BRENNON NONSTRESS 2 NANETTE NANETTE TEST URNLS DIP 36869 BRENNON BRENNON 2 NANETTE NANETTE STICK/TAB LET RGNT NON-AUTO W/O MICRSCP URNLS DIP 60958 LATASHA PAGAN 2 DON DON STICK/TAB LET RGNT NON-AUTO W/O MICRSCP US PREG 52658 LATASHA PAGAN UTERUS 2 DON DON REAL TIME F/U TRNSABDL PER FETUS URNLS DIP 52091 LATASHA PAGAN 2 DON DON STICK/TAB LET RGNT NON-AUTO W/O MICRSCP URNLS DIP 54694 BRENNON BRENNON 2 NANETTE NANETTE STICK/TAB LET RGNT NON-AUTO W/O MICRSCP BLOOD 78625 BRENNON BRENNON COUNT 2 NANETTE NANETTE HEMOGLOBI N URNLS DIP 86954 SHOWER SHOWER 2 [place] BL[place]EN[place] STICK/TAB LET RGNT NON-AUTO W/O MICRSCP COLLECTIO 57608 SHOWER SHOWER N VENOUS 2 [place] BLOOD VENIPUNCT URE GLUCOSE 00735 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 TOLERANCE 2 Y & Y & TEST GTT BIODIAGNO BIODIAGNO 3 [place] [address] 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 THYROID 2 Y & Y & STIMULATI BIODIAGNO BIODIAGNO NG STICS STICS HORMONE TSH COLLECTIO 88214 JESÚS ELIAN JESÚS ELIAN N VENOUS 2 BLOOD VENIPUNCT URE URNLS DIP 54225 JESÚS ELIAN JESÚS ELIAN 2 STICK/TAB LET RGNT NON-AUTO W/O MICRSCP OPHTH 78973 GIANA FARIA MEDICAL 2 JIM JIM XM&EVAL COMPRE NEW PT 1/> VST DETERMINA 24949 GIANA FARIA TION 2 JIM [facility] REFRACTIV [facility] STATE COLLECTIO 85490 JESÚS ELIAN JESÚS ELIAN N VENOUS 2 BLOOD VENIPUNCT URE US PREG 80416 JESÚS ELIAN JESÚS ELINA UTERUS 2 REAL TIME F/U TRNSABDL PER FETUS US PREG 89515 JESÚS ELIAN JESÚS ELIAN UTERUS 2 REAL TIME W/IMAGE DCMTN TRANSVAG URNLS DIP 44617 JESÚS ELIAN JESÚS ELIAN 2 STICK/TAB LET RGNT NON-AUTO W/[place] [address] 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 THYROID 2 Y & Y & STIMULATI BIODIAGNO BIODIAGNO NG STICS STICS HORMONE TSH URNLS DIP 46478 BRENNON BRENNON 2 NANETTE NANETTE STICK/TAB LET RGNT NON-AUTO W/O MICRSCP US PREG 23151 [facility] UTERUS 2 CARLEE CARLEE REAL TIME F/U TRNSABDL PER FETUS [facility] [id number] [facility] OBSERVATI 2 W W ON [facility] MEDICAL PER HOUR US PREG 80444 [facility] UTERUS 2 CARLEE CARLEE REAL TIME F/U TRNSABDL PER FETUS URNLS DIP 91012 JESÚS ELIAN JESÚS ELIAN 2 STICK/TAB LET RGNT NON-AUTO W/O MICRSCP US PREG 43059 O'JULIETH O'JULIETH UTERUS 2 SARAI SARAI W/DETAIL EMILIA 1ST GESTATION URNLS DIP 72280 LATASHA PAGAN 2 DON DON STICK/TAB LET RGNT NON-AUTO W/O MICRSCP URNLS DIP 36132 SHOWER SHOWER 2 BL[place]EN[place] BL[place]ENSHIP STICK/TAB LET RGNT NON-AUTO W/O MICRSCP COLLECTIO 99362 SHOWER SHOWER N VENOUS 2 [place] BL[place]EN[place] BLOOD VENIPUNCT URE CYTP C/V 00784 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 AUTO THIN 2 Y & Y & LYR BIODIAGNO BIODIAGNO PREPJ SCR STICS STICS MNL RESCR PHYS IADNA 48839 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 NEISSERIA 2 Y & Y & BIODIAGNO BIODIAGNO GONORRHOE STICS ST[place] [address] 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 THYROID 2 Y & Y & STIMULATI BIODIAGNO BIODIAGNO [place] [address] 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 THYROXINE 2 Y & Y & TOTAL BIODIAGNO BIODIAGNO STICS STICS IADNA 00689 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 CHLAMYDIA 2 Y & Y & BIODIAGNO BIODIAGNO TRACHOMAT STICS STICS IS AMPLIFIED PROBE TQ MOLECULAR 47695 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 DX AMP 1 Y & Y & TARGET BIODIAGNO BIODIAGNO MULTIPLEX STICS STICS EA ADDL SEQ MOLEC 59852 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 SEP&ID HI 1 Y & Y & RESOLU BIODIAGNO BIODIAGNO TQ EACH STICS STICS NUCLEIC ACID PREP MOLEC 03900 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 ISOL/XTRJ 1 Y & Y & HP BIODIAGNO BIODIAGNO NUCLEIC STICS STICS ACID EA TYPE MOLECULAR 18643 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 1 Y & Y & DIAGNOSTI BIODIAGNO BIODIAGNO CS STICS STICS INTERPRET ATION & REPORT MUTATION 04584 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 ID 1 Y & Y & ENZYMATIC BIODIAGNO BIODIAGNO STICS STICS LIG/PRIME R XTN 1 SGM EA MOLECULAR 51740 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 DX AMP 1 Y & Y & TARGET BIODIAGNO BIODIAGNO MULTIPLEX STICS STICS 1ST 2 SEQ COLLECTIO 64590 SHOWER SHOWER N VENOUS 1 BLANKENSHIP BLANKENSHIP BLOOD VENIPUNCT URE URNLS DIP 73907 SHOWER SHOWER 1 [place]EN[place] BL[place]ENSHIP STICK/TAB LET RGNT NON-AUTO W/O MICRSCP US PREG 17079 SHOWER SHOWER UTERUS 1 BLANKENSHIP BL[place]ENSHIP REAL TIME W/IMAGE DCMTN TRANSVAG THERAPEUT 98015 MEADOWVIE MEADOWVIE IC 1 W W PROPHYLAC REGIONAL REGIONAL TIC/DX MEDICAL MEDICAL INJECTION SUBQ/IM INCISION 57030 MEADOWVIE MEADOWVIE & 1 W W DRAINAGE [facility] ABSCESS MEDICAL MEDICAL SIMPLE/SI NGLE INCISION 22255 WAGNER PAGAN & 1 EMERGENCY [place] [facility] ABSCESS COMPLICAT ED/MULTIP LE SUSCEPTIB 37372 MEADOWVIE MEADOWVIE ILITY 1 W W STUDY [facility] ANTIMICRO MEDICAL MEDICAL BIAL DISK METHOD SMR PRIM 23112 MEADOWVIE MEADOWVIE SRC 1 W W GRAM/GIEM [facility] SA STAIN MEDICAL MEDICAL BCT FUNGI/KAVITHA L SUSCEPTIB 05256 MEADOWVIE MEADOWVIE LTY STDY 1 W W ANTIMICRB [facility] IA MEDICAL MEDICAL MICRO/AGA R DILUTJ CUL BACT 91448 MEADOWVIE MEADOWVIE XCPT 1 W W URINE [facility] BLOOD/STO MEDICAL MEDICAL OL AEROBIC ISOL CUL BACT 88235 MEADOWVIE MEADOWVIE AEROBIC 1 W W ADDL [facility] METHS MEDICAL [place] [address] MEADOWVIE MEADOWVIE IRON 1 W W [facility] BLOOD 95300 MEADOWVIE MEADOWVIE COUNT 1 W W COMPLETE [facility] AUTO&AUTO [place] [address] MEADOWVIE MEADOWVIE TRIIODOTH 1 W W YRONINE [facility] T3 FREE MEDICAL MEDICAL US SOFT 27948 [place] FERNANDO TISSUE 1 [place] [facility] HEAD & ENDOCRINO NECK REAL LOGY, [place] [address] MEADOWVIE MEADOWVIE THYROID 1 W W STIMULATI [facility] [place] [address] MEADOWVIE MEADOWVIE FERRITIN 1 W W [facility] [place] [address] MEADOWVIE MEADOWVIE FREE [address] [facility] MEDICAL COLLECTIO 63188 MEADOWVIE MEADOWVIE N VENOUS 1 W W BLOOD [facility] VENIPUNCT MEDICAL MEDICAL URE IRON 91411 MEADOWVIE MEADOWVIE BINDING 1 W W CAPACITY [facility] URINE 88423 MEADOWVIE MEADOWVIE 1 W W TEST [facility] COLOR CMPRSN METHS GONADOTRO 64522 MEADOWSATISH MEADOWVIE PIN 1 W W [facility] QUANTITAT BRYAN COLLECTIO 90092 MEADOWVIE MEADOWVIE N VENOUS 1 W W BLOOD [facility] COL[facility] 22503 MEADOWVIE MEADOWVIE N VENOUS 1 W W BLOOD [facility] MEDICAL URE GONADOTRO 32216 MEADOWSATISH MEADOWVIE PIN 1 W W [facility] QUANTITAT BRYAN GONADOTRO 08267 MEADOWVIE MEADOWVIE PIN 1 W W [facility] QUANTITAT BRYAN COLLECTIO 96785 MEADOWVIE MEADOWVIE N VENOUS 1 W W BLOOD [facility] MEDICAL URE COLLECTIO 72063 MEADOWVIE MEADOWVIE N VENOUS 1 W W BLOOD [facility] MEDICAL URE GONADOTRO 03997 MEADOWVIE MEADOWVIE PIN 1 W W [facility] QUANTITAT BRYAN BLOOD 50747 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 COUNT 1 Y & Y & COMPLETE BIODIAGNO BIODIAGNO AUTO&AUTO STICS STICS DIFRNTL WBC COLLECTIO 12042 JAMES FOFANAER N VENOUS 1 PRIMARY [facility] BLOOD CARE VENIPUNCT CENTER URE URNLS DIP 19042 JAMES CO GANSTER 1 PRIMARY [place] STICK/TAB CARE LET RGNT CENTER NON-AUTO W/O MICRSCP US PREG 14664 JAMES HIGH GANBIENVENIDO UTERUS 1 PRIMARY [place] REAL TIME CARE W/IMAGE CENTER DCMTN TRANSVAG URNLS DIP 36812 JAMES HIGH YOUNG HÉCTOR 1 PRIMARY STICK/TAB CARE LET RGNT CENTER NON-AUTO W/O MICRSCP COLLECTIO 36063 MEADOWVIE MEADOWVIE N VENOUS 1 W W BLOOD [facility] VENIPUNCT MEDICAL MEDICAL URE BLOOD 36099 NANCY MEADOWVIE COUNT 1 W W COMPLETE [facility] AUTO&AUTO MEDICAL MEDICAL DIFRNTL WBC BLOOD 80016 NANCY SHUKLAWSATISH TYPING 1 W W SEROLOGIC [facility] RH (D) MEDICAL MEDICAL IADNA 44051 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 CHLAMYDIA 1 Y & Y & BIODIAGNO BIODIAGNO TRACHOMAT STICS STICS IS AMPLIFIED PROBE TQ GONADOTRO 73851 NANCY CRUZ PIN 1 W W [facility] MEDICAL QUANTITAT BRYAN CYTP C/V 30622 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 AUTO THIN 1 Y & Y & LYR BIODIAGNO BIODIAGNO PREPJ SCR STICS STICS MNL RESCR PHYS BLOOD 61145 NANCY CRUZ TYPING 1 W W SEROLOGIC [facility] ABO [facility] MEDICAL IADNA 19345 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 NEISSERIA 1 Y & Y & BIODIAGNO BIODIAGNO GONORRHOE STICS STICS AE AMPLIFIED PROBE TQ URNLS DIP 61103 JAMES CO SHOWER 1 PRIMARY [place] STICK/TAB CARE LET RGNT CENTER NON-AUTO W/O MICRSCP US PREG 26187 JAMES HIGH SHOWER UTERUS 1 PRIMARY [place] REAL TIME CARE W/IMAGE CENTER DCMTN TRANSVAG URNLS DIP 28721 JAMES HIGH JESÚS ELIAN 1 PRIMARY STICK/TAB CARE LET RGNT CENTER NON-AUTO W/O MICRSCP COLLECTIO 51410 JAMES CO JAMES CO N VENOUS 1 PRIMARY PRIMARY BLOOD CARE CARE VENIPUNCT CENTER CENTER URE URINE 61332 JAMES HIGH SHOWER 1 PRIMARY BLANKENSHIP TEST CARE VISUAL CENTER COLOR CMPRSN METHS CULTURE 21372 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 BACTERIAL 0 Y & Y & BIODIAGNO BIODIAGNO QUANTTATI STICS STICS VE COLONY COUNT URINE URNLS DIP 67792 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 0 Y & Y & STICK/TAB BIODIAGNO BIODIAGNO LET RGNT STICS STICS AUTO [place] [address] JAMES HARDEN TRANSVAGI 0 PRIMARY [facility] IRON 21343 MEADOWVIE MEADOWVIE BINDING 0 W W CAPACITY [facility] [place] [address] MEADOWVIE MEADOWVIE TRIIODOTH 0 W W YRONINE [facility] T3 [facility] MEDICAL DEHYDROEP 93077 MEADOWVIE MEADOWVIE IANDROSTE [address] [facility] MEDICAL COLLECTIO 89059 MEADOWVIE MEADOWVIE N VENOUS 0 W W BLOOD [facility] VENIPUNCT [facility] [place] [place] [address] MEADOWVIE MEADOWVIE FOLIC 0 W W ACID [facility] [place] [address] MEADOWVIE MEADOWVIE IRON 0 W W [facility] BLOOD 56742 MEADOWVIE MEADOWVIE COUNT 0 W W COMPLETE [facility] AUTO&AUTO [place] [address] MEADOWVIE MEADOWVIE FREE [address] [place] [address] MEADOWVIE MEADOWVIE THYROID 0 W W STIMULATI [facility] MEDICAL MEDICAL HORMONE TSH 25 18724 MEADOWVIE MEADOWVIE HYDROXY 0 W W INCLUDES [facility] FRACTIONS MEDICAL MEDICAL IF PERFORMED CYANOCOBA 86908 MEADOWVIE MEADOWVIE KOSTA 0 W W VITAMIN [facility] B-12 [place] [address] MEADOWVIE MEADOWVIE FERRITIN 0 W W [facility] [place] [address] MEADOWVIE MEADOWVIE THYROID 0 W W STIMULATI [facility] MED[facility] [place] [address] MEADOWVIE MEADOWVIE FREE 0 W W THYROXINE [facility] CENTER COLLECTIO 09521 MEADOWVIE MEADOWVIE N VENOUS 0 W W BLOOD [facility] [place] [address] MEADOWVIE MEADOWVIE TRIIODOTH 0 W W YRONINE [facility] T3 [facility] CENTER 35662 [facility] EXTREMITY 9 NON-VASC DIAGNOSTI DIAGNOSTI C CENTER, C CENTER, REAL-TIME [facility] IMG CYTP 14897 [facility] CERV/VAG 9 [facility] AUTO THIN LAYER PREP MNL SCREEN IADNA 76037 [facility] CHLAMYDIA 9 [facility] TRACHOMAT IS AMPLIFIED PROBE TQ IADNA 96963 [facility] NEISSERIA 9 [facility] GONORRHOE AE AMPLIFIED PROBE TQ MEDICAL 53638 DHS/CO ANAT CO NUTRITION 9 [facility] ASSMT&IVN BANK ACCT T TJ INDIV EACH [address] [place] [address] LAB ARMANDO LAB ARM[facility] TRIIODOTH 9 AMERIC [employer]RONINE [employer] T3 FREE COLLECTIO 70198 [place] ABDULL[place]I, N VENOUS 9 ANGELA Haney BLOOD ENDOCRINO [place], [place] [address] LAB ARMANDO LAB ARMANDO FREE 9 AMERIC AMERIC [place] [address] LAB ARMANDO LAB ARMANDO THYROID 9 AMERIC AMERIC STIMULATI HOLD[place] [address] LAB ARMANDO LAB ARMANDO SOMATOMED 9 AMERIC [place] [address] LAB ARMANDO LAB ARMANDO FREE 9 [employer]IC [employer] [place] [address] LAB ARMANDO LAB ARMANDO THYROID 9 [employer] STIMULATI HOLDING HOLDING NG HORMONE TSH COLLECTIO 34528 [place] ABDULLAHI, N VENOUS 9 ANGELA Haney BLOOD ENDOCRINO VENIPUNCT LOGY, INC URE US SOFT 60903 [place] FERNANDO TISSUE 9 ANGELA Haney HEAD & ENDOCRINO NECK REAL LOGY, INC TIME IMGE DOCM INSERTION 49462 [place] ESTELA, 8 MEDICAL THANIA C INTRAUTER SERV INE FOUNDATIO DEVICE IUD ANESTHESI 86680 [place] COLCLOUGH A 8 MEDICAL , GAMALIEL SERV W DELIVERY FOUNDATIO ONLY 31283 [facility] GARABEDIA DELIVERY 8 MEDICAL N, ONLY SERV ANNA MARIE W/POSTPAR [place] [address] [facility] [place], RON SURG 8 MEDICAL Y PATHOLOGY SERV FOUNDATIO GROSS&GERARDO ROSCOPIC EXAM CLASSICAL 740 [facility] 8 Y Y [facility]ITAL US PREG 10-200 46301 [place] QUINCY, UTERUS 8 MEDICAL KELBY F REAL TIME SERV F/U FOUNDATIO TRNSABDL PER FETUS SBSQ 10-20-200 81857 [place] [facility] 8 MEDICAL KELBY F CARE/DAY SERV 35 FOUNDATIO MINUTES 10-20-200 92090 [place] CARINA, NONSTRESS 8 MEDICAL FLORES C TEST SERV FOUNDATIO 10-19-200 13769 [place] MARYSOL, NONSTRESS 8 MEDICAL JERI B TEST SERV FOUNDATIO SBSQ 10-19-200 [address] [place] [address] MEDICAL DIPAK CARE/DAY SERV Y 35 FOUNDATIO MINUTES SBSQ 10-18-[id number] [place] [address], [place] [address] MEDICAL DIPAK CARE/DAY SERV Y 35 FOUNDATIO MINUTES SBSQ 10-17-[id number] [place] [address], [place] [address] MEDICAL DIPAK CARE/DAY SERV Y 35 FOUNDATIO MINUTES SBSQ 10-16-[id number] [place] [address], [place] [address] MEDICAL DIPAK CARE/DAY SERV Y 35 FOUNDATIO MINUTES SBSQ 10-15-[id number] [place] [address], [place] [address] MEDICAL DIPAK CARE/DAY SERV Y 35 FOUNDATIO MINUTES SBSQ 10-14-[id number] [place] [address], [facility] 8 MEDICAL DIPAK CARE/DAY SERV Y 35 FOUNDATIO MINUTES 10-14-200 65663 [place] GARABEDIA NONSTRESS 8 MEDICAL N, TEST SERV ANNA MARIE FOUNDATIO 10-13-200 66160 [place] NONSTRESS 8 MEDICAL N, TEST SERV ANNA MARIE FOUNDATIO SBSQ 10-13-[id number] [place] [address] 8 MEDICAL DIPAK CARE/DAY SERV Y 35 FOUNDATIO MINUTES SBSQ 10-12-200 [address] [place] [address] MEDICAL KELBY F CARE/DAY SERV 35 FOUNDATIO MINUTES 10-12-200 61537 [place] [facility] MEDICAL KELBY F TEST SERV FOUNDATIO SBSQ 10-11-[id number] [place] [address] 8 MEDICAL KELBY F CARE/DAY SERV 35 FOUNDATIO MINUTES SBSQ 10-10-200 [address] [place] [address] MEDICAL [place], [place] CARE/DAY SERV 35 FOUNDATIO MINUTES 10-10-200 82299 [place] PONCE, NONSTRESS 8 MEDICAL MERISSA M TEST SERV FOUNDATIO SBSQ 79176 [facility] 8 MEDICAL [place], [place] CARE/DAY SERV 35 FOUNDATIO MINUTES SBSQ 23167 [facility] 8 MEDICAL [place], [place] CARE/DAY SERV 35 FOUNDATIO MINUTES 92243 [place] PANG, NONSTRESS 8 MEDICAL MARY J TEST SERV FOUNDATIO SBSQ 44451 [facility] 8 MEDICAL [place], [place] CARE/DAY SERV 35 FOUNDATIO MINUTES SBSQ 16429 [facility] 8 MEDICAL [place], [place] CARE/DAY SERV 35 FOUNDATIO MINUTES SBSQ 17316 [facility] CARE/DAY SERV 35 FOUNDATIO MINUTES SBSQ 64318 [facility] 8 MEDICAL KELBY F CARE/DAY SERV 35 FOUNDATIO MINUTES 97197 [place] PONCE, NONSTRESS 8 MEDICAL MERISSA M TEST SERV FOUNDATIO SBSQ 16167 [facility] 8 MEDICAL KELBY F CARE/DAY SERV 35 FOUNDATIO MINUTES URNLS DIP 26901 [facility] 8 Y Y STICK/TAB [facility] LET RGNT AUTO W/[place] MICROSCOP Y 33678 [facility] 8 Y Y G LABOR [facility] [place] [address] [facility] 8 Y Y UTERUS [facility] HOSPITAL LIMITED 1/> [place] [address] [facility] MATHEW, 8 MEDICAL KELBY F UTERUS SERV LIMITED FOUNDATIO 1/> FETUSES URNLS DIP 24183 JAMES PEREZ, 8 PRIMARY SUKHDEV J STICK/TAB CARE LET RGNT CENTERINC NON-AUTO W/O MICRSCP URNLS DIP 68328 JAMES AMAYA, 8 PRIMARY DIOGO L STICK/TAB CARE LET RGNT CENTERINC NON-AUTO W/O MICRSCP DOPPLER 75796 [facility] ECHO 8 MEDICAL [place], [place] SERV SPECTRAL FOUNDATIO [place] PREG 64187 [facility] UTERUS 8 MEDICAL [place], [place] W/DETAIL SERV FOUNDATIO EMILIA 1ST GESTATION ALPHA-FET 53664 [facility] OPROTEIN 8 DIAGNOSTI DIAGNOSTI SERUM , INC. , INC. CHEMILUMI 53873 [facility] NESCENT 8 DIAGNOSTI DIAGNOSTI [place] , [place] , [place] [address] [facility] ESTRIOL 8 DIAGNOSTI DIAGNOSTI , INC. , INC. ALPHA-FET 12789 [facility] OPROTEIN 8 DIAGNOSTI DIAGNOSTI SERUM , INC. , INC. URNLS DIP 39851 JAMES ESPINOSA, 8 PRIMARY ARMEN W STICK/TAB CARE LET RGNT CENTERINC NON-AUTO W/O MICRSCP COLLECTIO 37924 JAMES ESPINOSA N VENOUS 8 PRIMARY ARMEN W BLOOD CARE VENIPUNCT CENTERINC URE IADNA 16463 [facility] CHLAMYDIA 8 DIAGNOSTI DIAGNOSTI CS IN CS IN TRACHOMAT IS AMPLIFIED PROBE TQ INHIBIN A 88394 [facility] QUEST 8 DIAGNOSTI DIAGNOSTI , INC. , INC. GONADOTRO 52138 [facility] PIN 8 DIAGNOSTI DIAGNOSTI CHORIONIC , INC. , INC. QUANTITAT BRYAN CYTP C/V 15471 [facility] AUTO THIN 8 DIAGNOSTI DIAGNOSTI LYR CS IN CS IN PREPJ SCR MNL RESCR PHYS IADNA 99006 [facility] NEISSERIA 8 DIAGNOSTI DIAGNOSTI CS IN CS IN GONORRHOE AE AMPLIFIED PROBE TQ COLLECTIO 55395 JAMES PEREZ N VENOUS 8 PRIMARY SUKHDEV J BLOOD CARE VENIPUNCT CENTERINC URE URNLS DIP 73500 Trung MARIEE PRIMARY SUKHDEV J STICK/TAB CARE LET RGNT CENTERINC NON-AUTO W/O MICRSCP US PREG 94514 JAMES PAGAN, UTERUS 8 PRIMARY [place] R AFTER 1ST CARE TRIMEST CENTERINC GESTATION COLLECTIO 57477 NANCY CRUZ N VENOUS 8 W W BLOOD [facility] US PELVIC 79775 NANCY CRUZ 8 W W NONOBSTET [facility] CENTER IMAGE COMPLETE BLOOD 43690 MEAWSATISH MEADOWVIE TYPING 8 W W SEROLOGIC [facility] CENTER GONADOTRO 66838 MEADOWVIE MEADOWVIE PIN 8 W W CHORIONIC [facility] MEDICAL MEDICAL QUANTITAT CENTER CENTER BRYAN BLOOD 16343 MEAWSATISH MEADOWVIE TYPING 8 W W SEROLOGIC [facility] RH (D) [facility]ICAL [facility]ENTER CENTER BASIC 51892 MEADOWVIE MEADOWVIE METABOLIC 8 W W PANEL [facility] TOTAL [facility] CENTER BLOOD 40486 MEADOWVIE MEADOWVIE COUNT 8 W W [facility] AUTO&AUTO MEDICAL MEDICAL DIFRNTL CENTER CENTER WBC Encounters Encounter Start End Date Code Location Performer Type Date OFFICE 92431 [facility] MAR OUTPATIEN 7 7 FAMILY T VISIT HEALTH 15 CTR MINUTES OFFICE 06822 PUBLIC OUTPATIEN 7 7 HEALTH T VISIT [facility]/CO 15 HEALTH MINUTES OFFICE 16349 [facility] PRASAD OUTPATIEN 7 7 FAMILY T VISIT HEALTH 25 CTR MINUTES OFFICE 77279 [facility] MAR OUTPATIEN 6 6 FAMILY JAM T VISIT HEALTH 15 CTR MINUTES OFFICE 62611 [facility] DAMIONE DEN OUTPATIEN 6 6 FAMILY T VISIT HEALTH 15 CTR MINUTES OFFICE 76337 [facility] MAR OUTPATIEN 6 6 FAMILY JAM T VISIT HEALTH 15 CTR MINUTES OFFICE 08669 [facility] SHOWER OUTPATIEN 6 6 FAMILY BLANKENSHIP T VISIT HEALTH 25 CTR MINUTES OFFICE 55261 [facility] HANSEN MIR OUTPATIEN 5 5 FAMILY T VISIT HEALTH 15 CTR MINUTES HOSPITAL MEADOWVIE - 5 5 W INPATIENT [facility] MEADOWVIE - 5 5 W OUTPATIEN [facility] T MEDICAL OFFICE 02322 [facility] SHOWER OUTPATIEN 5 5 FAMILY BLANKENSHIP T VISIT HEALTH 15 CTR MINUTES HOSPITAL MEADOWVIE - 5 5 W [facility] MEDICAL OFFICE 22632 [facility] [place] VY OUTPATIEN 5 5 FAMILY T VISIT HEALTH 15 CTR MINUTES OFFICE 74158 [facility] SP TOMY OUTPATIEN 5 5 PRIMARY T VISIT CARE 15 CENTER MINUTES OFFICE 27293 [facility] OLZESKI OUTPATIEN 5 5 PRIMARY MAURICIO T VISIT CARE 15 CENTER MINUTES OFFICE 45613 [facility] OLZESKI OUTPATIEN 5 5 PRIMARY MAURICIO T VISIT CARE 15 CENTER MINUTES OFFICE 43634 [facility] SURJIT OUTPATIEN 5 5 PRIMARY JOSE T VISIT CARE 15 CENTER MINUTES OFFICE 61246 [facility] SP TOMY OUTPATIEN 5 5 PRIMARY T VISIT CARE 15 CENTER MINUTES OFFICE 32057 [facility] SP TOMY OUTPATIEN 5 5 PRIMARY T VISIT CARE 15 CENTER MINUTES OFFICE 60565 [facility] [place] VY OUTPATIEN 5 5 PRIMARY T VISIT CARE 15 CENTER MINUTES HOSPITAL UNIVERSIT - 5 5 Y [facility] T OFFICE 50549 [facility] GANSTER OUTPATIEN 5 5 PRIMARY GLORIA T VISIT CARE 15 CENTER MINUTES OFFICE 65618 [facility] [place] VY OUTPATIEN 5 5 PRIMARY T VISIT CARE 10 CENTER MINUTES EMERGENCY 68404 [facility] [place] P[facility]NOY 4 4 MOOSE [facility] DEPARTMEN EMERGENCY T VISIT PHYS HIGH/URGE NT SEVERITY EMERGENCY 04698 [facility] 4 4 MOO[facility] DEPARTMEN EMERGENCY T VISIT PHYS HIGH/URGE NT SEVERITY OFFICE 78840 LATASHA OUTPATIEN 2 2 DON T VISIT 15 MINUTES EMERGENCY 28767 NANCY 2 2 W [facility] VISIT MEDICAL HIGH/URGE NT SEVERITY HOSPITAL NANCY - 2 2 [facility] 2 2 W [facility] MEDICAL EMERGENCY 59180 WAGNER ABRAMS DEPT 2 2 EMERGENCY [facility] HIGH SEVERITY& THREAT FUN EMERGENCY 89348 MEADOWVIE 2 2 W [facility] MEDICAL HIGH/URGE NT SEVERITY HOSPITAL MEAWVIE - 2 2 W [facility] MEDICAL EMERGENCY 23038 MEAWVIE 2 2 W [facility] VISIT MEDICAL MODERATE SEVERITY OFFICE 21785 JESÚS ELIAN OUTPATIEN 2 2 T VISIT 25 MINUTES HOSPITAL MEAWVIE - 2 2 W INPATIENT [facility] MEAWVIE - 2 2 W [facility] MEDICAL OFFICE 17676 SHOWER OUTPATIEN 2 2 [facility] T VISIT 15 MINUTES HOSPITAL MEAWVIE - 2 2 W [facility] MEDICAL OFFICE 04710 LATASHA OUTPATIEN 2 2 DON T VISIT 15 MINUTES OFFICE 36707 LATASHA OUTPATIEN 2 2 DON T VISIT 15 MINUTES OFFICE 23598 BRENNON OUTPATIEN 2 2 NANETTE T VISIT 15 MINUTES OFFICE 21382 SHOWER OUTPATIEN 2 2 [facility] T VISIT 15 MINUTES OFFICE 22603 JESÚS ELIAN OUTPATIEN 2 2 T VISIT 15 MINUTES OFFICE 90191 JESÚS ELIAN OUTPATIEN 2 2 T VISIT 15 MINUTES OFFICE 54862 BRENNON OUTPATIEN 2 2 NANETTE T VISIT 15 MINUTES HOSPITAL MEAWVIE - 2 2 W [facility] MEDICAL OFFICE 26296 JESÚS ELIAN OUTPATIEN 2 2 T VISIT 15 MINUTES OFFICE 80913 LATASHA OUTPATIEN 2 2 DON T VISIT 15 MINUTES OFFICE 50309 SHOWER SHOWER OUTPATIEN 2 2 [facility] BL[facility]SHIP T VISIT 15 MINUTES OFFICE 78921 SHOWER SHOWER OUTPATIEN 1 1 [facility] T VISIT 15 MINUTES EMERGENCY 49532 MEAWVIE 1 1 W [facility] T VISIT MEDICAL HIGH/URGE NT SEVERITY HOSPITAL MEADOWVIE - 1 1 W [facility] MEDICAL OFFICE 72218 DENYS FERNANDO OUTPATIEN 1 1 [facility] T VISIT ENDOCRINO 25 LOGY, I MINUTES HOSPITAL MEADOWVIE - 1 1 W [facility] MEDICAL EMERGENCY 85299 VAZQUEZWVIE 1 1 W [facility] T VISIT MEDICAL MODERATE SEVERITY EMERGENCY 76157 WAGNER SANCHEZ 1 1 EMERGENCY [facility] T VISIT HIGH/URGE NT SEVERITY HOSPITAL MEADOWVIE - 1 1 W [facility] MEDICAL OFFICE 89071 DENYS FERNANDO OUTPATIEN 1 1 [facility] T VISIT ENDOCRINO 15 LOGY, I [facility] HOSPITAL MEADOWVIE - 1 1 W [facility] HOSPITAL MEAWVIE - 1 1 [facility] HOSPITAL MEAWVIE - 1 1 [facility] MEADOWVIE - 1 1 W [facility] MEDICAL OFFICE 44928 JAMES JUÁREZ OUTPATIEN 1 1 [facility] GLORIA T VISIT CARE 15 CENTER MINUTES OFFICE 79148 JAMES ANAYA OUTPATIEN 1 1 PRIMARY T VISIT CARE 25 CENTER MINUTES EMERGENCY 09218 WAGNER FRACISCO [facility] 1 1 EMERGENCY DEPARTMEN SERVICES T VISIT HIGH/URGE NT SEVERITY EMERGENCY 71392 NANCY 1 1 W [facility] T VISIT MEDICAL MODERATE SEVERITY HOSPITAL MEAWVIE - 1 1 W [facility] MEDICAL OFFICE 04902 JAMES HIGH SHOWER OUTPATIEN 1 1 PRIMARY BL[facility]ENSHIP T VISIT CARE 15 CENTER MINUTES EMERGENCY 79401 WAGNER SALDANA DEPT 1 1 EMERGENCY CHR VISIT SERVICES HIGH SEVERITY& THREAT FUNCJ OFFICE 20635 JAMES HIGH SHOWER OUTPATIEN 1 1 PRIMARY BLANKENSHIP T VISIT CARE 25 CENTER MINUTES OFFICE 10520 JAMES HARDEN OUTPATIEN 0 0 PRIMARY JANENE T VISIT CARE 15 CENTER MINUTES OFFICE 51594 JAMES LAZO OUTPATIEN 0 0 PRIMARY BRUNER T VISIT CARE DECALVO 15 CENTER MAR MINUTES HOSPITAL MEADOWVIE - 0 0 W [facility] MEDICAL OFFICE 01053 [place] ABDULLAHI OUTPATIEN 0 0 [facility] NAKUL R T VISIT ENDOCRINO 15 LOGY, [facility] MINUTES OFFICE 20573 JAMES VELASQUEZ, OUTPATIEN 0 0 PRIMARY LITO E T VISIT CARE 15 CENTERINC MINUTES OFFICE 73924 JAMES VELASQUEZ, OUTPATIEN 0 0 PRIMARY LITO E T [facility] 30100 JAMES HIGH DEL OUTPATIEN 9 9 PRIMARY BRUNER T VISIT CARE DECALVO, 10 CENTERINC SHON MINUTES MISBAH V OFFICE 98170 JAMES VELASQUEZ, OUTPATIEN 9 9 PRIMARY LITO E T VISIT CARE 40 CENTERINC MINUTES OFFICE 27774 JAMES CO RON, OUTPATIEN 9 9 PRIMARY LITO E T VISIT CARE 15 CENTERINC MINUTES OFFICE 82848 RADHA ALEXIS 9 9 [facility] NAKUL R T VISIT ENDOCRINO 25 LOGY, INC MINUTES OFFICE 86951 RADHA ALEXIS 9 9 [facility] NAKUL R T VISIT ENDOCRINO 25 LOGY, INC MINUTES OFFICE 58862 [place] ABDULLAIH CONSULTJOLENE 9 9 VALLEY NAKUL R ION ENDOCRINO NEW/ESTAB LOGY, INC PATIENT 60 MIN HOSPITAL UNIVERSIT - 8 8 Y INPATIENT [facility] UN[facility] - 8 8 [facility] 73763 RADHA OCASIO 8 8 MEDICAL KELBY F T VISIT SERV 40 FOUNDATIO MINUTES OFFICE 42241 RADHA MARIEE 8 8 PRIMARY SUKHDEV J T VISIT CARE 15 CENTERINC MINUTES OFFICE 71199 RADHA PARMAR 8 8 PRIMARY DIOGO L T VISIT CARE 15 CENTERINC MINUTES OFFICE 54282 GILMER AVENDAÑO CONSULTAT 8 8 MEDICAL RI, LORNE ION SERV NEW/ESTAB FOUNDATIO PATIENT 30 MIN OFFICE 62639 RADHA KING 8 8 PRIMARY ARMEN W T VISIT CARE 15 CENTERINC MINUTES OFFICE 19030 RADHA MARIEE 8 8 PRIMARY SUKHDEV J T VISIT CARE 15 CENTERINC MINUTES OFFICE 32399 RADHA CHAVEZ 8 8 PRIMARY STANLEY R T VISIT CARE 15 CENTERINC MINUTES HOSPITAL NANCY - 8 8 W OUTPATIEN [facility] T [facility]ICAL CENTER EMERGENCY 74080 NANCY 8 8 W [facility] T VISIT MEDICAL HIGH/URGE CENTER NT SEVERITY
--- OUTSIDE RECORDS SUMMARY | 2016-12-19 22:12 | External Medical Summary Rpt ---
Demographics Preferred Language Brazilian Marital Status Unknown Zoroastrianism Affiliation Unknown Race Unknown Ethnic Group Unknown Author Author , Organization [employer] Address Unknown Phone Unavailable Purpose Continuity of Care Document - through 2016 Immunization No patient found.
--- OUTSIDE RECORDS SUMMARY | 2016-12-19 22:12 | External Medical Summary Rpt ---
Author Author [employer] Dow, [employer] Organization [employer] Address Unknown Phone Unavailable Results CHLAMYDIA AND GONORRHEA TESTING Observa Value Referen Units Interpr Notes Date tion ce etation Range COLLECT E. No No No No Oct 07 OR DENY, informa informa informa informa 2017 R.N. tion in tion in tion in tion in 3:00 PM source source source source data data data data ETHNICI WHITE, No No No No Oct 07 TY NON-HIS informa informa informa informa 2017 PANIC tion in tion in tion in tion in 3:00 PM source source source source data data data data KIT No No No No Oct 07 EXPIRAT 017 informa informa informa informa 2017 ION tion in tion in tion in tion in 3:00 PM DATE source source source source data data data data SYMPTOM NO No No No No Oct 07 S informa informa informa informa 2017 tion in tion in tion in tion in 3:00 PM source source source source data data data data REASON VOLUNTE No No No No Oct 07 FOR ER/MEDI informa informa informa informa 2017 REQUEST MINGO tion in tion in tion in tion in 3:00 PM PROBLEM source source source source data data data data SPECIME FEMALE No No No No Oct 07 N ENDOCER informa informa informa informa 2017 SOURCE VICAL tion in tion in tion in tion in 3:00 PM source source source source data data data data PREGNAN NO No No No No Oct 07 T informa informa informa informa 2017 tion in tion in tion in tion in 3:00 PM source source source source data data data data CHART [id number] No No No No Oct 07 NUMBER 09 informa informa informa informa 2017 tion in tion in tion in tion in 3:00 PM source source source source data data data data Chlamyd NEGATIV No No No NEGATIV Oct 07 ia E informa informa informa E 2017 trachom tion in tion in tion in RESULT= 3:00 PM atis source source source WITHIN rRNA data data data NORMAL [Presen ce] in LIMITSP Unspeci OSITIVE fied specime RESULT= n by Probe & ABNORMA target LEQUIVO MINGO amplifi RESULT= cation method INDETER MINATEU NSATISF ACTORY RESULT= INVALID Neisser POSITIV No No No NEGATIV Oct 07 ia E informa informa informa E 2017 gonorrh tion in tion in tion in RESULT= 3:00 PM oeae source source source WITHIN rRNA data data data NORMAL [Presen ce] in LIMITSP Unspeci OSITIVE fied specime RESULT= n by Probe & ABNORMA target LEQUIVO MINGO amplifi RESULT= cation method INDETER MINATEU NSATISF ACTORY RESULT= INVALID THE APTIMA COMBO 2 ASSAY IS NOT INTENDE D FOR THE EVALUAT ION OF SUSPECT EDSEXUA L ABUSE OR FOR OTHER MEDICO- LEGAL INDICAT IONS. FOR THOSE PATIENT S FORWHOM A FALSE POSITIV E RESULT MAY HAVE ADVERSE PSYCHO- SOCIAL IMPACT, [facility] RETESTI NG.\.br \This report contain s patient informa tion that must be protect ed in accorda nce with the Health Insuran ce Portabi lity and Account ability Act. Treponema pallidum IgG Ab [Presence] in Serum by Immunoassay Observa Value Referen Units Interpr Notes Date tion ce etation Range COLLECT E. No No No No Oct 07 OR DENY, informa informa informa informa 2017 R.N. tion in tion in tion in tion in 3:00 PM source source source source data data data data ETHNICI WHITE, No No No No Oct 07 TY NON-HIS informa informa informa informa 2017 PANIC tion in tion in tion in tion in 3:00 PM source source source source data data data data PURPOSE DIAGNOS No No No No Oct 07 OF TIC informa informa informa informa 2017 EXAM tion in tion in tion in tion in 3:00 PM source source source source data data data data SPECIME BLOOD No No No No Oct 07 N informa informa informa informa 2017 SOURCE tion in tion in tion in tion in 3:00 PM source source source source data data data data CHART [id number] No No No No Oct 07 NUMBER 09 informa informa informa informa 2017 tion in tion in tion in tion in 3:00 PM source source source source data data data data Trepone NON-SHAHZAD No No No METHOD Oct [address] informa informa informa OF 2017 pallidu tion in tion in tion in ANALYSI 3:00 PM m IgG source source source S: Ab data data data EIANORM [Presen AL ce] in RANGE: Serum NON-SHAHZAD by CTIVE\. Immunoa br\This ssay report contain s patient informa tion that must be protect ed in accorda nce with the Health Insuran ce Portabi lity and Account ability Act. Treponema pallidum IgG Ab [Presence] in Serum by Immunoassay Observa Value Referen Units Interpr Notes Date tion ce etation Range COLLECT E. No No No No Oct 07 OR DENY, informa informa informa informa 2017 R.N. tion in tion in tion in tion in 3:00 PM source source source source data data data data ETHNICI WHITE, No No No No Oct 07 TY NON-HIS informa informa informa informa 2017 PANIC tion in tion in tion in tion in 3:00 PM source source source source data data data data PURPOSE DIAGNOS No No No No Oct 07 OF TIC informa informa informa informa 2017 EXAM tion in tion in tion in tion in 3:00 PM source source source source data data data data SPECIME BLOOD No No No No Oct 07 N informa informa informa informa 2017 SOURCE tion in tion in tion in tion in 3:00 PM source source source source data data data data CHART [id number] No No No No Oct 07 NUMBER 09 informa informa informa informa 2017 tion in tion in tion in tion in 3:00 PM source source source source data data data data Trepone Pending No No No \.br\Th Oct 07 ma informa informa informa is 2017 pallidu tion in tion in tion in report 3:00 PM m IgG source source source contain Ab data data data s [Presen patient ce] in Serum informa by tion Immunoa that ssay must be protect ed in accorda nce with the Health Insuran ce [place]io queen and Account ability Act. CHLAMYDIA AND GONORRHEA TESTING Observa Value Referen Units Interpr Notes Date tion ce etation Range COLLECT E. No No No No Oct 07 OR DENY, informa informa informa informa 2017 R.N. tion in tion in tion in tion in 3:00 PM source source source source data data data data ETHNICI WHITE, No No No No Oct 07 TY NON-HIS informa informa informa informa 2017 PANIC tion in tion in tion in tion in 3:00 PM source source source source data data data data KIT No No No No Oct 07 EXPIRAT 017 informa informa informa informa 2017 ION tion in tion in tion in tion in 3:00 PM DATE source source source source data data data data SYMPTOM NO No No No No Oct 07 S informa informa informa informa 2017 tion in tion in tion in tion in 3:00 PM source source source source data data data data REASON VOLUNTE No No No No Oct 07 FOR ER/MEDI informa informa informa informa 2017 REQUEST MINGO tion in tion in tion in tion in 3:00 PM PROBLEM source source source source data data data data SPECIME FEMALE No No No No Oct 07 N ENDOCER informa informa informa informa 2017 SOURCE VICAL tion in tion in tion in tion in 3:00 PM source source source source data data data data PREGNAN NO No No No No Oct 07 T informa informa informa informa 2017 tion in tion in tion in tion in 3:00 PM source source source source data data data data CHART [id number] No No No No Oct 07 NUMBER 09 informa informa informa informa 2017 tion in tion in tion in tion in 3:00 PM source source source source data data data data Chlamyd Pending No No No No Oct 07 ia informa informa informa informa 2017 trachom tion in tion in tion in tion in 3:00 PM atis source source source source rRNA data data data data [Presen ce] in Unspeci fied specime n by Probe & target amplifi cation method Neisser Pending No No No \.br\Oct 07 ia informa informa informa is 2017 gonorrh tion in tion in tion in report 3:00 PM oeae source source source contain rRNA data data data s [Presen patient ce] in Unspeci informa fied tion specime that n by must be Probe & target protect ed in amplifi accorda cation nce method with the Health Insuran ce Portabi lity and Account ability Act.
--- OUTSIDE RECORDS SUMMARY | 2016-12-19 22:12 | External Medical Summary Rpt ---
[...] source source data data data data CHART [id number] No No No No Oct 07 NUMBER [...] MAY HAVE ADVERSE PSYCHO- SOCIAL IMPACT, [facility] RETESTI NG.\.br \This report contain s [...] source source data data data data CHART [id number] No No No No Oct 07 NUMBER [...] source source data data data data CHART [id number] No No No No Oct 07 NUMBER [...] source source data data data data CHART [id number] No No No No Oct 07 NUMBER [...]
--- OUTSIDE RECORDS SUMMARY | 2016-12-19 22:12 | External Medical Summary Rpt ---
Demographics Preferred Language [place] Marital Status Unknown Gnosticist Affiliation Unknown Race Unknown Ethnic Group Unknown Author Author , Organization [employer] Address Unknown Phone Unavailable Purpose Continuity of Care Document - through 2016 Immunization No patient found.
== END 2016-12-18 08:04 | disposition short-term general hospital (02) ==
LOC: ER 07:25
DX: I46.9 Cardiac arrest, cause unspecified (principal); V89.2XXA Person injured in unspecified motor-vehicle accident, traffic, initial encounter